=== PATIENT | male | born 1955 | race Caucasian/White ===

== ENCOUNTER 2019-01-03 09:51 | Observation (INO) | payer SELFPAY ==
--- NOTE | 2019-01-03 10:16 | ER Document Report ---
ED Extremity Problem, Upper - General Chief Complaint: Shoulder Injury Stated Complaint: ARM INJURY Time Seen by Provider: 01/03/19 10:14 Primary Care Provider: MELVINA TOLEDO MD [Primary Care Provider] - Follow up as needed Mode of Arrival: Ambulatory Information source: Patient TRAVEL OUTSIDE OF THE [place] IN LAST 30 DAYS: No - HPI Notes: Patient complains of right shoulder pain. He states this started 2 days ago when he fell. He states it is worse with any movement better with rest. It does radiate down his right arm. It is moderate to severe. He states this is the first chance he has had to get to the doctor. He states is a constant throbbing pain. He denies any other injuries in the fall. He states that the reason he fell is because he got dizzy when he stood up. He states he does get dizzy upon standing since he started taking blood pressure medicine. - Related Data Allergies/Adverse Reactions: naproxen [Naproxen] Allergy (Verified 01/03/19 09:52) Past Medical History - General Information source: Patient - Social History Smoking Status: Current Every Day Smoker Frequency of alcohol use: None Drug Abuse: None Family History: Reviewed & Not Pertinent - Past Medical History Cardiac Medical History: Reports: Hx Hypertension GI Medical History: Reports: Hx Ulcer - Associated with some lower GI bleeding - Immunizations Hx Diphtheria, Pertussis, Tetanus Vaccination: No Review of Systems - Review of Systems Constitutional: denies: Chills, Fever Cardiovascular: denies: Chest pain, Dyspnea Respiratory: denies: Cough, Short of breath -: Yes All other systems reviewed and negative Physical Exam - Vital signs Vitals: Temp Pulse Resp BP Pulse Ox 98.2 F 86 22 H 183/90 H 96 01/03/19 10:01 01/03/19 10:01 01/03/19 10:01 01/03/19 10:01 01/03/19 10:01 Interpretation: Hypertensive - General General appearance: Appears well, Alert - HEENT Head: Normocephalic, Atraumatic Eyes: Normal Pupils: PERRL - Respiratory Respiratory status: No respiratory distress Chest status: Nontender Breath sounds: Normal Chest palpation: Normal - Cardiovascular Rhythm: Regular Heart sounds: Normal auscultation Murmur: No - Abdominal Inspection: Normal Distension: No distension Bowel sounds: Normal Tenderness: Nontender Organomegaly: No organomegaly - Back Back: Normal, Nontender - Extremities General upper extremity: Tender - Right shoulder is diffusely tender to palpation. It does not appear grossly deformed however. He is got a 2+ radial pulse on the right. He does have limited range of motion of the right shoulder secondary to pain., Normal color, Normal temperature General lower extremity: Normal inspection, Nontender, Normal color, Normal ROM, Normal temperature, Normal weight bearing. No: Pavel's sign - Neurological Neuro grossly intact: Yes Cognition: Normal Orientation: AAOx4 Maciel Coma Scale Eye Opening: Spontaneous Maciel Coma Scale Verbal: Oriented [place] Coma Scale Motor: Obeys Commands [place] Coma Scale Total: 15 Speech: Normal Motor strength normal: LUE, RUE, LLE, RLE Sensory: Normal - Psychological Associated symptoms: Normal affect, Normal mood - Skin Skin Temperature: Warm Skin Moisture: Dry Skin Color: Normal Course - Re-evaluation Re-evalutation: 01/03/19 13:05 Patient reevaluated. Patient is resting comfortably in the bed although does have pain with movement of the right shoulder. I have discussed the case with the orthopedic surgeon who will take the patient to the operating room when there is availability. - Vital Signs Vital signs: Temp Pulse Resp BP Pulse Ox 98.2 F 86 22 H 183/90 H 96 01/03/19 10:01 01/03/19 10:01 01/03/19 10:01 01/03/19 10:01 01/03/19 10:01 - Diagnostic Test Radiology reviewed: Image reviewed, Reports reviewed Radiology results interpreted by me: 01/03/19 13:[address] X-[address] CT are consistent with anterior dislocation of the right shoulder. There is a Hill-Sachs deformity. Discharge - Discharge Clinical Impression: Recurrent dislocation, right shoulder Condition: Stable Disposition: SAME DAY SURGERY Admitting Provider: noman
[2019-01-03] MEDS ORDERED: MORPHINE SULFATE 10 MG/ML INJ IV ONE ×2 (10:35→13:21)
[2019-01-03] MEDS ORDERED: ONDANSETRON HCL INJ/PF 4 MG/2 ML SDV IV ONE (10:35)
[2019-01-03] MEDS ORDERED: LIDOCAINE 1.5%/EPINEPHRINE INJ-PF 30 ML SDV INJ ONE (10:35)
--- NOTE | 2019-01-03 10:47 | RADIOLOGY REPORT (SQ) ---
EXAM DESCRIPTION: SHOULDER RIGHT 2 OR MORE VIEWS COMPLETED DATE/TIME: 01/03/2019 10:33 am REASON FOR STUDY: fall/pain COMPARISON: 12/02/2014 NUMBER OF VIEWS: Two views. TECHNIQUE: AP and Y-view images acquired of the right shoulder. LIMITATIONS: None. FINDINGS: MINERALIZATION: Decreased. BONES: There is anterior shoulder dislocation with associated Hill-Sachs deformity. Additional degen erative changes at the acromioclavicular injected glenohumeral joint with osteophytosis and prominent inferior projecting acromial osteophytes. JOINTS: Anterior/inferior shoulder dislocation. VISUALIZED LUNGS AND RIBS: No pneumothorax. No rib fracture. SOFT TISSUES: No radiopaque foreign body. OTHER: No other significant finding. IMPRESSION: 1. Anterior/ inferior shoulder dislocation with associated Hill-Sachs deformity. TECHNICAL DOCUMENTATION: JOB ID: [id number] [employer]- All Rights Reserved Reading location - IP/workstation name: [email or web address]
[2019-01-03] MEDS ORDERED: KETOROLAC TROMETHAMINE 60 MG/2 ML SDV IM ONE (10:58)
[2019-01-03] MEDS ORDERED: MORPHINE SULFATE 10 MG/ML INJ IM ONE (10:59)
[2019-01-03] MEDS ORDERED: KETOROLAC TROMETHAMINE 60 MG/2 ML SDV ONE (11:00)
[2019-01-03] MEDS ORDERED: ONDANSETRON 4 MG TAB.RAPDIS ONE (11:00)
[2019-01-03] MEDS ORDERED: ONDANSETRON 4 MG TAB.RAPDIS PO ONE (11:05)
--- NOTE | 2019-01-03 12:16 | RADIOLOGY REPORT (SQ) ---
EXAM DESCRIPTION: CT RT UPPER EXTREMITY WITHOUT COMPLETED DATE/TIME: 01/03/2019 11:50 am REASON FOR STUDY: shoulder dislocated/pain COMPARISON: Same day radiograph TECHNIQUE: Axial imaging performed through the rightshoulder with reformatted oblique coronal and ob lique sagittal imaging windowed for bone and soft tissues. All CT scanners at this facility use dose modulation, iterative reconstruction, and/or weight based d osing when appropriate to reduce radiation dose to as low as reasonably achievable (ALARA). [facility]: Dose Right [facility]: CareDose [facility]: Dose Right [facility]: Teradose 4D [facility]: HotelQuickly RADIATION DOSE: CT Rad equipment meets quality standard of care and radiation dose reduction techniq ues were employed. CTDIvol: 25.9 mGy. DLP: 662 mGy-cm. mGy. LIMITATIONS: None. FINDINGS: SOFT TISSUES: Enlarged shoulder joint effusion. BONY ARCHITECTURE: Again seen is the anterior shoulder dislocation with cortical irregularity of the superolateral humeral head compatible with a Hill-Sachs deformity. No definite bony Bankart lesion. GLENOHUMERAL JOINT: Anterior dislocation as above with large joint effusion. There is degenerative c hanges at the glenohumeral joint with osteophytosis and mild subchondral cystic change ACROMION AND AC JOINT: Acromioclavicular osteoarthropathy with inferior projecting acromial osteophyt es. ROTATOR CUFF: Fatty atrophy of the supra and infraspinatus. Evaluation for attachment tear limited o n this CT. OTHER: No other significant finding. IMPRESSION: 1. Anterior shoulder dislocation with associated Hill-Sachs deformity. No definite bon y Bankart lesion. 2. Large shoulder joint effusion. 3. Glenohumeral and acromioclavicular osteoarthropathy. TECHNICAL DOCUMENTATION: JOB ID: [id number] Quality ID # [id number]: Final reports with documentation of one or more dose reduction techniques (e.g., Au tomated exposure control, adjustment of the mA and/or kV according to patient size, use of iterative reconstruction technique) 2010 [employer]- All Rights Reserved Reading location - IP/workstation name: [email or web address]
[2019-01-03] MEDS ORDERED: MORPHINE SULFATE 10 MG/ML INJ ONE (13:28)
[2019-01-03] MEDS ORDERED: IBUPROFEN 400 MG TABLET PO ONE (15:31)
[2019-01-03] MEDS ORDERED: DIPHENHYDRAMINE HCL 50 MG/ML VIAL IV PRN (15:58)
[2019-01-03] MEDS ORDERED: PROMETHAZINE HCL INJ 25 MG/1 ML VIAL IV PRN ×2 (15:58)
[2019-01-03] MEDS ORDERED: MORPHINE SULFATE 10 MG/ML INJ IV PRN (15:58)
[2019-01-03] MEDS ORDERED: MEPERIDINE HCL/PF INJ 25 MG/1 ML DISP.SYRIN IV PRN (15:58)
[2019-01-03] MEDS ORDERED: OXYCODONE-ACETAMINOPHEN 5-325 MG TABLET PO PRN ×2 (15:58)
[2019-01-03] MEDS ORDERED: FENTANYL CITRATE INJ/PF 100 MCG/2 ML AMPUL IV PRN ×3 (15:58)
[2019-01-03] MEDS ORDERED: MIDAZOLAM 2 MG/2 ML INJ ONE (16:00)
[2019-01-03] MEDS ORDERED: FENTANYL CITRATE INJ/PF 100 MCG/2 ML AMPUL ONE (16:00)
[2019-01-03] MEDS ORDERED: PROPOFOL INJ 200 MG/20 ML VIAL IV ONE (16:01)
--- NOTE | 2019-01-03 16:02 | PDOC H&P ---
History of Present Illness Admission Date/PCP: 01/03/19 15:46 MELVINA TOLEDO MD Patient complains of: Right anterior shoulder dislocation History of Present Illness: RUBEN MAYES is a 63 year old male who presented to the emergency department today complaining of pain in his right shoulder. He reports sustaining a fall 2 days ago and has experienced pain and the inability to move his shoulder since this fall. The patient has a history of alcohol abuse. The patient states that he was too busy to come to the emergency room until today. Duration in the emergency department demonstrated an anterior inferior dislocation of the right shoulder. The emergency department physician attempted a closed reduction but was unsuccessful. Past Medical History Cardiac Medical History: Reports: Hypertension Pulmonary Medical History: Reports: Chronic Obstructive Pulmonary Disease (COPD) - She is a current everyday smoker. GI Medical History: Reports: Gastroesophageal Reflux Disease Musculoskeltal Medical History: Reports: Other - Recurrent shoulder dislocations. Musculoskeletal History Note: The patient has experienced at least 3 dislocations of the right shoulder. The patient reports the last dislocation occurred 8 months ago. The patient reports that he underwent a closed reduction at [facility]. The patient states that he has never followed up with an orthopedic surgeon following any of these dislocations. Social History Smoking Status: Current Every Day Smoker Frequency of Alcohol Use: Heavy - The patient has a history of alcohol abuse. Family History Family History: Reviewed & Not Pertinent Parental Family History Reviewed: Yes Children Family History Reviewed: Yes Sibling(s) Family History Reviewed.: Yes Medication/Allergy Home Medications: Furosemide [Lasix 40 mg Tablet] 40 mg PO QAM 01/03/19 Lisinopril [Prinivil 10 mg Tablet] 10 mg PO DAILY 01/03/19 Pantoprazole Sodium 40 mg PO DAILY 01/03/19 Potassium Chloride 2 tab PO DAILY 01/03/19 Allergies/Adverse Reactions: naproxen [Naproxen] Allergy (Verified 01/03/19 09:52) Physical Exam Vital Signs: Temp Pulse Resp BP Pulse Ox 98.5 F 76 16 146/78 H 95 01/03/19 15:19 01/03/19 15:19 01/03/19 15:19 01/03/19 15:19 01/03/19 15:19 Intake & Output 01/02/19 01/03/19 01/04/19 06:59 06:59 06:59 Weight 110.9 kg Results Impressions: Shoulder X-Ray 01/03/19 10:14 IMPRESSION: 1. Anterior/ inferior shoulder dislocation with associated Hill- Sachs deformity. Upper Extremity CT 01/03/19 11:34 IMPRESSION: 1. Anterior shoulder dislocation with associated Hill-Sachs deformity. No definite bony Bankart lesion. 2. Large shoulder joint effusion. 3. Glenohumeral and acromioclavicular osteoarthropathy. Assessment & Plan - Time Time Spent: 30 to 50 Minutes Medications reviewed and adjusted accordingly: Yes Anticipated discharge: Home Within: within 24 hours - Plan Summary Plan Summary: The patient presented with a 2-day history of anterior inferior dislocation of the right shoulder. He failed a manipulative reduction performed in the emergency room by the emergency room physician. The emergency room physician is not comfortable providing conscious sedation in the emergency department due to his medical morbidity. I have recommended manipulative reduction in the operating room under general anesthesia. We have discussed that if closed reduction is unsuccessful, he may require an open reduction. Risks, benefits, and alternatives were discussed. An opportunity for questions was provided. All questions were answered to his satisfaction. In particular we discussed the risk of with anesthesia. We discussed the risk of prolonged intubation. We discussed the risk of fracture as well as nerve and vascular injury. We discussed that his radiographs demonstrated a Hill-Sachs lesion. We discussed that as this lesion gets larger due to recurrent dislocations, he may develop a persistently unstable shoulder. The patient expressed understanding and wishes to proceed.
--- NOTE | 2019-01-03 17:03 | Operative Report ---
Operative Report DATE OF SURGERY: 01/03/19 PREOPERATIVE DIAGNOSIS: Right shoulder recurrent anterior dislocation POSTOPERATIVE DIAGNOSIS: Same OPERATION: Right shoulder manipulative reduction under general anesthesia SURGEON: ALYSSA SUÁREZ ANESTHESIA: GA COMPLICATIONS: None ESTIMATED BLOOD LOSS: None PROCEDURE: Indications for procedure: The patient is a 63-year-old man with a recurrent anterior shoulder dislocation. The shoulder has been dislocated for at least 2 days per patient history. The patient failed manipulative reduction in the emergency department without sedation. Description of procedure: The patient was brought to the operating room. Timeout was performed. A general anesthetic was administered. Gentle manipulat benjie reduction of the shoulder was performed under image intensification. Image intensification confirmed reduction of the dislocation. The shoulder was then placed in an immobilizer. The patient tolerated the procedure well without complication and was awakened and brought to recovery room in stable condition.
[2019-01-03] MEDS ORDERED: IBUPROFEN 400 MG TABLET ONE (17:30)
[2019-01-03] MEDS ORDERED: IBUPROFEN 400 MG TABLET PO PRN (17:42)
[2019-01-04] MEDS: ACETAMINOPHEN 325 MG TABLET PO PRN ×2 (03:52→07:55)
--- NOTE | 2019-01-04 08:37 | RADIOLOGY REPORT (SQ) ---
EXAM DESCRIPTION: NO CHG FLUORO; SHOULDER RIGHT 2 OR MORE VIEWS COMPLETED DATE/TIME: 01/03/2019 5:25 pm REASON FOR STUDY: CLOSED REDUCTION SHOULDER OR COMPARISON: 01/03/2019 FLUOROSCOPY TIME: 0 minutes 2 images saved to PACS. TECHNIQUE: Intra-operative images acquired during surgical procedure to evaluate progress. NUMBER OF IMAGES: 2 LIMITATIONS: None. FINDINGS: Reduction of previously noted dislocation. Glenohumeral osteophytes. Hill-Sachs lesion. IMPRESSION: IMAGE(S) OBTAINED DURING PROCEDURE. COMMENT: Quality ID [id number]: Final reports for procedures using fluoroscopy that document radiation exp osure indices, or exposure time and number of fluorographic images (if radiation exposure indices are not available) Please consult full operative report of the attending physician for description of the procedure. TECHNICAL DOCUMENTATION: JOB ID: [id number] [employer]- All Rights Reserved Reading location - IP/workstation name: [email or web address]
--- NOTE | 2019-01-04 08:37 | RADIOLOGY REPORT (SQ) ---
EXAM DESCRIPTION: NO CHG FLUORO; SHOULDER RIGHT 2 OR MORE VIEWS COMPLETED DATE/TIME: 01/03/2019 5:25 pm REASON FOR STUDY: CLOSED REDUCTION SHOULDER OR COMPARISON: 01/03/2019 FLUOROSCOPY TIME: 0 minutes 2 images saved to PACS. TECHNIQUE: Intra-operative images acquired during surgical procedure to evaluate progress. NUMBER OF IMAGES: 2 LIMITATIONS: None. FINDINGS: Reduction of previously noted dislocation. Glenohumeral osteophytes. Hill-Sachs lesion. IMPRESSION: IMAGE(S) OBTAINED DURING PROCEDURE. COMMENT: Quality ID [id number]: Final reports for procedures using fluoroscopy that document radiation exp osure indices, or exposure time and number of fluorographic images (if radiation exposure indices are not available) Please consult full operative report of the attending physician for description of the procedure. TECHNICAL DOCUMENTATION: JOB ID: [id number] [employer]- All Rights Reserved Reading location - IP/workstation name: [email or web address]
[2019-01-04 12:05] VITALS: BP 165/79
--- NOTE | 2019-01-05 13:40 | Discharge Summary ---
Discharge Summary (SDC) - Discharge Final Diagnosis: Right shoulder recurrent anterior dislocation Date of Surgery: 01/03/19 Condition: Stable Forms: Discharge POC-Adult Referrals: ALYSSA SUÁREZ MD [ACTIVE PROVISIONAL STAFF] - 01/17/19 11:45 am Discharge Diet: Cardiac Respiratory Treatments at Home: Deep Breathing/Coughing Discharge Activity: Activity As Tolerated, Balance Activity w/Rest, No Driving Home Care Assistance: None Needed Adaptive Devices on Discharge: Wheelchair Report the Following to Your Physician Immediately: Shortness of Breath, Nausea, Vomiting, Increase in Pain, Fever over 101 Degrees, IV Site Infection Signs
== END 2019-01-04 12:15 | disposition home or self-care (01) ==
LOC: ER 09:51 → EH 15:46 → 4S 17:54
PROVIDERS: ADMIT Orthopaedic Surgery; ATTEND Orthopaedic Surgery
PROC: 0RSJXZZ Reposition Right Shoulder Joint, External Approach (ICD-10-PCS; principal; 2019-01-03 16:00)
DX: M24.411 Recurrent dislocation, right shoulder (principal); S42.291A Other displaced fracture of upper end of right humerus, initial encounter for closed fracture; W19.XXXA Unspecified fall, initial encounter; F17.200 Nicotine dependence, unspecified, uncomplicated; F10.11 Alcohol abuse, in remission; K21.9 Gastro-esophageal reflux disease without esophagitis; R42 Dizziness and giddiness; I10 Essential (primary) hypertension; Z79.899 Other long term (current) drug therapy
CPT/HCPCS: 23655; 99284; 96372; 96374; 73030; 73200; 01620; L3650; J2250; J1885; S0119; J3010; J3490 ×2; J2270; J2704; 01730

== ENCOUNTER 2019-02-25 11:06 | Emergency (ER) | payer OTHER ==
[2019-02-25] MEDS ORDERED: PROPOFOL INJ 200 MG/20 ML VIAL IV ONE (11:44)
--- NOTE | 2019-02-25 11:48 | ER Document Report ---
ED General - General Chief Complaint: Shoulder Pain Stated Complaint: RIGHT SHOULDER INJURY Time Seen by Provider: 02/25/19 11:12 Primary Care Provider: MELVINA TOLEDO MD [NO LOCAL MD] - Follow up as needed Notes: 63-year-old male presents emergency department complaining of right shoulder dislocation. Patient states that he woke up in his right shoulder was out of socket. States that this happened before, has a history of a right sided rotator cuff tear in the back. States that his fingers are tingling but not numb. States that he has no difficulty moving his elbow but it hurts to move his shoulder. Patient has had to be taken to the OR once before to have a shoulder reduced, has not had to be surgically reduced however. Denies anesthesia complications, denies blood thinners. Has not had anything to eat yet today. TRAVEL OUTSIDE OF THE [place] IN LAST 30 DAYS: No - Related Data Allergies/Adverse Reactions: naproxen [Naproxen] Allergy (Verified 01/03/19 09:52) Past Medical History - General Information source: Patient - Social History Smoking Status: Current Every Day Smoker Chew tobacco use (# tins/day): No Frequency of alcohol use: None Family History: Reviewed & Not Pertinent Patient has suicidal ideation: No Patient has homicidal ideation: No - Past Medical History Cardiac Medical History: Reports: Hx Hypertension Pulmonary Medical History: Reports: Hx COPD - She is a current everyday smoker. Renal/ Medical History: Denies: Hx Peritoneal Dialysis GI Medical History: Reports: Hx Gastroesophageal Reflux Disease, Hx Ulcer - Associated with some lower GI bleeding Musculoskeletal Medical History: Reports Hx Arthritis - Immunizations Hx Diphtheria, Pertussis, Tetanus Vaccination: No Review of Systems - Review of Systems Constitutional: No symptoms reported Musculoskeletal: See HPI Neurological/Psychological: See HPI -: Yes All other systems reviewed and negative Physical Exam - Vital signs Vitals: Temp Resp BP Pulse Ox 97.6 F 18 142/87 H 97 02/25/19 11:13 02/25/19 11:13 02/25/19 11:13 02/25/19 11:13 Interpretation: Hypertensive - Notes Notes: GENERAL: Alert, interacts well. No acute distress. HEAD: Normocephalic, atraumatic EYES: Pupils equal, round and reactive to light, extraocular movements intact. ENT: Oral mucosa moist, tongue midline. NECK: Full range of motion, supple, trachea midline. LUNGS: Clear to auscultation bilaterally, no wheezes, rales or rhonchi, no respiratory distress. HEART: Regular rate and rhythm, no murmurs, gallops, rubs. ABDOMEN: Soft, nontender, nondistended, bowel sounds present in all 4 quadrants. EXTREMITIES: Moves all 4 extremities spontaneously, able to move right shoulder through range of motion although it is somewhat limited by pain, surprisingly he is able to even elevated over his head, there is an anterior dislocation deformity noted at the glenohumeral joint, no edema, radial and dorsalis pedis pulses 2/4 bilaterally. No cyanosis. Sensation is intact NEUROLOGICAL: Alert and oriented x3, normal speech, biceps and patellar DTRs 2+ bilaterally. PSYCH: Normal mood, normal affect. SKIN: Warm, Dry, normal turgor, no rashes or lesions noted. Course - Re-evaluation Re-evalutation: 02/25/19 11:48 Attempted to reduce without sedation at bedside, unsuccessful though patient tolerated this well. Patient agrees to procedural sedation and reduction with propofol. X-ray shows anterior dislocation. 02/25/19 15:51 Easily reduced with propofol, no complications. Placed in shoulder immobilizer. Discharged home. - Vital Signs Vital signs: Temp Pulse Resp BP Pulse Ox 97.6 F 80 16 148/84 H 99 02/25/19 12:00 02/25/19 13:42 02/25/19 13:42 02/25/19 13:42 02/25/19 13:42 Procedures - Conscious Sedation Conscious sedation Consent obtained: Yes Indication: Right shoulder dislocation Last meal: 8 AM Pt with a mild systemic disease.: P2. - ASA Classification. Airway Evaluation: Obese Mallampati Classification: Class 2 Used during procedure: Suction available, IV access obtained, Pulse ox on pt., campus monitor on pt. Medications administered: Diprivan Reversal agents: None I personally performed/intraservice time: Sedation, Procedure, 30 min or less Complications: No - Joint Reduction/Fracture Care Right shoulder Consent obtained: Yes Conscious sedation: Yes Pre-procedure NV exam: Yes Post-procedure NV exam: Yes Post-reduction x-ray: Joint reduced, No fracture seen Reduction attempts: 1 Complications: No Discharge - Discharge Clinical Impression: Recurrent dislocation, right shoulder Condition: Stable Disposition: HOME, SELF-CARE Additional Instructions: Shoulder Dislocation You've had a shoulder dislocation. Even after the shoulder is put back in place, careful care is needed to prevent further problems. As the shoulder dislocated, injury to the joint itself occurred. This must be allowed to heal. The usual treatment is a shoulder immobilizing sling. If this is your first dislocation, it must be left in place until the doctor allows you to remove it. This is important. Ice pack the shoulder frequently. One of the most important aspects of care for a shoulder dislocation is mobility exercises and strengthening exercises. You'll start these when it's safe to start moving the shoulder joint. Be sure to keep your follow-up appointments. If you develop numbness in the arm or hand, weakness of the hand muscles, arm swelling, or arm discoloration, call the doctor or return immediately. Referrals: MELVINA TOLEDO MD [NO LOCAL MD] - Follow up as needed
--- NOTE | 2019-02-25 11:58 | RADIOLOGY REPORT (SQ) ---
EXAM DESCRIPTION: SHOULDER RIGHT 2 OR MORE VIEWS COMPLETED DATE/TIME: 02/25/2019 11:38 am REASON FOR STUDY: Obvious deformity COMPARISON: None. NUMBER OF VIEWS: Two views. TECHNIQUE: Frontal and lateral images acquired of the right shoulder. LIMITATIONS: None. FINDINGS: MINERALIZATION: Osteopenia. BONES: Anterior glenohumeral dislocation. No obvious fracture. JOINTS: See above. VISUALIZED LUNGS AND RIBS: No pneumothorax. No rib fracture. SOFT TISSUES: No radiopaque foreign body. OTHER: No other significant finding. IMPRESSION: Anterior glenohumeral dislocation. TECHNICAL DOCUMENTATION: JOB ID: [id number] [employer]- All Rights Reserved Reading location - IP/workstation name: [email or web address]
--- NOTE | 2019-02-25 14:55 | RADIOLOGY REPORT (SQ) ---
EXAM DESCRIPTION: SHOULDER RIGHT 2 OR MORE VIEWS COMPLETED DATE/TIME: 02/25/2019 2:35 pm REASON FOR STUDY: post-reduction COMPARISON: Earlier the same day. NUMBER OF VIEWS: Three views. TECHNIQUE: Internal rotation, external rotation, and Y view images acquired of the right shoulder. LIMITATIONS: None. FINDINGS: MINERALIZATION: Osteopenia. BONES: No acute fracture. No worrisome bone lesions. JOINTS: No dislocation. VISUALIZED LUNGS AND RIBS: No pneumothorax. No rib fracture. SOFT TISSUES: No radiopaque foreign body. OTHER: No other significant finding. IMPRESSION: Successful closed reduction. TECHNICAL DOCUMENTATION: JOB ID: [id number] [employer]- All Rights Reserved Reading location - IP/workstation name: [email or web address]
[2019-02-25 16:17] VITALS: BP 164/95
== END 2019-02-25 16:17 | disposition home or self-care (01) ==
LOC: ER 11:06
DX: M24.411 Recurrent dislocation, right shoulder (principal); R20.2 Paresthesia of skin; F17.200 Nicotine dependence, unspecified, uncomplicated; I10 Essential (primary) hypertension; J44.9 Chronic obstructive pulmonary disease, unspecified; Z88.8 Allergy status to other drugs, medicaments and biological substances
CPT/HCPCS: 99283; 99152; 73030; 23650; L3650; J2704

== ENCOUNTER 2019-02-26 21:11 | Emergency (ER) | payer OTHER ==
--- NOTE | 2019-02-26 21:24 | ER Document Report ---
ED General - General Chief Complaint: Shoulder Injury Stated Complaint: SHOULDER INJURY Time Seen by Provider: 02/26/19 21:23 TRAVEL OUTSIDE OF THE [place] IN LAST 30 DAYS: No - HPI Patient complains to provider of: shoulder pain Notes: 63 y/o presenting to ED for evaluation of right shoulder pain he states he was in the ED yesterday and was treated for a shoulder dislocation he states he felt fine this am and had the arm in the a sling however, he then went to take a nap and woke up and the pain was back in the shoulder he has a tingling sensation in his fingers and notes that he usually feels this way when his shoulder is dislocated no falls or known injuries - Related Data Allergies/Adverse Reactions: naproxen [Naproxen] Allergy (Verified 01/03/19 09:52) Past Medical History - Social History Smoking Status: Unknown if Ever Smoked Family History: Reviewed & Not Pertinent Patient has suicidal ideation: No Patient has homicidal ideation: No - Past Medical History Cardiac Medical History: Reports: Hx Hypertension Pulmonary Medical History: Reports: Hx COPD - She is a current everyday smoker. Renal/ Medical History: Denies: Hx Peritoneal Dialysis GI Medical History: Reports: Hx Gastroesophageal Reflux Disease, Hx Ulcer - Associated with some lower GI bleeding Musculoskeletal Medical History: Reports Hx Arthritis - Immunizations Hx Diphtheria, Pertussis, Tetanus Vaccination: No Review of Systems - Review of Systems Constitutional: No symptoms reported EENT: No symptoms reported Cardiovascular: No symptoms reported Respiratory: No symptoms reported Gastrointestinal: No symptoms reported Genitourinary: No symptoms reported Male Genitourinary: No symptoms reported Musculoskeletal: Joint pain. denies: Deformity Skin: No symptoms reported Hematologic/Lymphatic: No symptoms reported Neurological/Psychological: No symptoms reported Physical Exam - Vital signs Vitals: Temp Resp BP Pulse Ox 97.9 F 20 131/68 H 96 02/26/19 21:21 02/26/19 21:21 02/26/19 21:21 02/26/19 21:21 Interpretation: Normal - General General appearance: Appears well, Alert - HEENT Head: Normocephalic, Atraumatic Eyes: Normal Pupils: PERRL Mucous membranes: Normal Pharynx: Normal Neck: Normal. No: Lymphadenopathy - Respiratory Respiratory status: No respiratory distress Chest status: Nontender Breath sounds: Normal Chest palpation: Normal - Cardiovascular Rhythm: Regular Heart sounds: Normal auscultation Murmur: No - Abdominal Inspection: Normal Distension: No distension Bowel sounds: Normal Tenderness: Nontender Organomegaly: No organomegaly - Back Back: Normal, Nontender - Extremities General lower extremity: Normal inspection, Nontender, Normal color, Normal ROM, Normal temperature, Normal weight bearing. No: Pavel's sign Shoulder: Tender, Limited ROM. No: Abrasion, Ecchymosis, Laceration - Neurological Neuro grossly intact: Yes Cognition: Normal Orientation: AAOx4 Maciel Coma Scale Eye Opening: Spontaneous Maciel Coma Scale Verbal: Oriented [place] Coma Scale Motor: Obeys Commands Maciel Coma Scale Total: 15 Speech: Normal Motor strength normal: LUE, RUE, LLE, RLE Sensory: Normal - Psychological Associated symptoms: Normal affect, Normal mood - Skin Skin Temperature: Warm Skin Moisture: Dry Skin Color: Normal Course - Re-evaluation Re-evalutation: 02/26/19 21:33 right shoulder pain reduced yesterday will repeat xr given some limitation in ROM 02/26/19 22:54 dislocated attempted reduction w/o sedation propofol ordered for sedation after failure to reduce w/o medication 02/27/19 00:15 propofol for sedation reduced successfully sling put back on orthopedic follow up recommended - Vital Signs Vital signs: Temp Pulse Resp BP Pulse Ox 97.9 F 87 18 147/102 H 100 02/26/19 21:21 02/27/19 00:08 02/27/19 00:08 02/27/19 00:08 02/27/19 00:08 - Diagnostic Test Radiology reviewed: Image reviewed, Reports reviewed Procedures - Conscious Sedation Conscious sedation Consent obtained: Yes Indication: shoulder dislocation Prior complications: Procedural sedation Medications administered: Diprivan Reversal agents: None I personally performed/intraservice time: Sedation, 30 min or less Complications: No - Joint Reduction/Fracture Care Right Shoulder Consent obtained: Yes Conscious sedation: Yes Pre-procedure NV exam: Yes Manipulation comment: reduced w/ traction/counter traction Post-procedure NV exam: Yes Post-reduction x-ray: Joint reduced Reduction attempts: 1 - with sedation Complications: No Discharge - Discharge Clinical Impression: Elevated blood pressure reading Shoulder dislocation Qualifiers: Encounter type: initial encounter Laterality: right Qualified Code(s): S43.004A - Unspecified dislocation of right shoulder joint, initial encounter Condition: Stable Disposition: HOME, SELF-CARE Instructions: Shoulder Dislocation ([facility]), Sling as Treatment ([facility]) Additional Instructions: call orthopedic for follow up return to the ED with worsening Forms: Elevated Blood Pressure Referrals: BEBA BRADEN DO [ACTIVE STAFF] - Follow up as needed
[2019-02-26] MEDS ORDERED: MORPHINE SULFATE 10 MG/ML INJ IV ONE (22:05)
[2019-02-26] MEDS ORDERED: ONDANSETRON HCL INJ/PF 4 MG/2 ML SDV IV ONE (22:05)
[2019-02-26] MEDS ORDERED: MORPHINE SULFATE 10 MG/ML INJ IM ONE (22:09)
[2019-02-26] MEDS ORDERED: ONDANSETRON 4 MG TAB.RAPDIS PO ONE (22:10)
--- NOTE | 2019-02-26 22:28 | RADIOLOGY REPORT (SQ) ---
EXAM DESCRIPTION: XR SHOULDER 2 OR MORE VIEWS COMPLETED DATE/TME: 02/26/2019 00:00 CLINICAL HISTORY: 63 years, Male, possible dislocation COMPARISON: 02/25/2019 right shoulder NUMBER OF VIEWS: 2 TECHNIQUE: 2 view right shoulder LIMITATIONS: None. FINDINGS: Anterior inferior dislocation of the humerus with Hill-Sachs deformity. Degenerative changes are again noted. No acute fracture. IMPRESSION: Anterior inferior shoulder dislocation copyright 2010 [employer]- All Rights Reserved
[2019-02-26] MEDS ORDERED: PROPOFOL INJ 200 MG/20 ML VIAL IV ONE (22:54)
--- NOTE | 2019-02-27 00:29 | RADIOLOGY REPORT (SQ) ---
EXAM DESCRIPTION: XR SHOULDER 2 OR MORE VIEWS COMPLETED DATE/TME: 02/27/2019 00:00 CLINICAL HISTORY: 63 years, Male, post reduction COMPARISON: 02/26/2019 FINDINGS: 2 views of the right shoulder. Post reduction images demonstrate appropriate anatomic position. No definite acute fracture identified. Osteopenia. Degenerative change of the acromioclavicular and glenohumeral joints. No acute abnormalities of visualized right ribs. IMPRESSION: 1. Right glenohumeral joint narrowing. Anatomic alignment post reduction. copyright 2010 [employer]- All Rights Reserved
[2019-02-27 01:18] VITALS: BP 170/92
== END 2019-02-27 01:30 | disposition home or self-care (01) ==
LOC: ER 21:11
DX: M24.411 Recurrent dislocation, right shoulder (principal); M25.511 Pain in right shoulder; I10 Essential (primary) hypertension; J44.9 Chronic obstructive pulmonary disease, unspecified; Z88.8 Allergy status to other drugs, medicaments and biological substances
CPT/HCPCS: 73030 ×2; 23650; S0119; J2270; J2704; 96372; 99283; 99152

== ENCOUNTER 2019-03-15 22:30 | Emergency (ER) | payer OTHER ==
--- NOTE | 2019-03-15 23:33 | RADIOLOGY REPORT (SQ) ---
EXAM DESCRIPTION: XR SHOULDER 2 OR MORE VIEWS COMPLETED DATE/TME: 03/15/2019 22:43 CLINICAL HISTORY: 63 years, Male, bone tenderness COMPARISON: 02/27/2019 right shoulder NUMBER OF VIEWS: 2 TECHNIQUE: 2 views right shoulder LIMITATIONS: None. FINDINGS: Osteopenia. Anterior inferior shoulder dislocation/humeral dislocation. Advanced degenerative changes of the shoulder joint without evidence for acute fracture. IMPRESSION: Anterior inferior shoulder dislocation. Osteopenia. copyright 2010 [employer]- All Rights Reserved
[2019-03-16] MEDS ORDERED: DIAZEPAM INJ 10 MG/2 ML DISP.SYRIN IV ONE (02:12)
[2019-03-16] MEDS ORDERED: ETOMIDATE INJ/PF 20 MG/10 ML SDV IV ONE (02:12)
--- NOTE | 2019-03-16 02:22 | ER Document Report ---
ED General - General Chief Complaint: Shoulder Injury Stated Complaint: POSSIBLE RIGHT SHOULDER DISLOCATION Time Seen by Provider: 03/16/19 01:42 Primary Care Provider: SUNDEEP GARCIA MD [ACTIVE STAFF] - Follow up in 3-5 days TRAVEL OUTSIDE OF THE [place] IN LAST 30 DAYS: No - HPI Notes: This is a 63-year-old male who presents complaining of sudden onset right shoulder pain that started approximately 1 hour to arrival in the ED at 2213 hrs. on 03/15/2019. Patient states that he has a history of right shoulder dislocations in the past and he was awoken from sleep by a sudden sharp pain in his right shoulder. Patient states that he is dislocated his right shoulder at least 3 times in the past. EMS gave the patient a gram of Tylenol for pain. Documented vital signs initially blood pressure 143/84, pulse ox 97% on room air, heart rate 81, respirations 20 blood sugar 91. Patient denies numbness, paresthesias, color change in his right upper extremity. Differential diagnosis: Shoulder dislocation, surgical neck fracture of the humerus, occult brachial plexus injury - Related Data Allergies/Adverse Reactions: naproxen [Naproxen] Allergy (Verified 01/03/19 09:52) Past Medical History - Social History Smoking Status: Unknown if Ever Smoked Family History: Reviewed & Not Pertinent Patient has suicidal ideation: No Patient has homicidal ideation: No - Past Medical History Cardiac Medical History: Reports: Hx Hypertension Pulmonary Medical History: Reports: Hx COPD - She is a current everyday smoker. Renal/ Medical History: Denies: Hx Peritoneal Dialysis GI Medical History: Reports: Hx Gastroesophageal Reflux Disease, Hx Ulcer - Associated with some lower GI bleeding Musculoskeletal Medical History: Reports Hx Arthritis - Immunizations Hx Diphtheria, Pertussis, Tetanus Vaccination: No Physical Exam - Vital signs Vitals: Resp Pulse Ox 16 95 03/15/19 22:32 03/15/19 22:32 - Notes Notes: PHYSICAL EXAMINATION: GENERAL: Well-appearing, well-nourished and in no acute distress. HEAD: Atraumatic, normocephalic. EYES: Pupils equal round and reactive to light, extraocular movements intact, sclera anicteric, conjunctiva are normal. ENT: nares patent, oropharynx clear without exudates. Moist mucous membranes. NECK: Normal range of motion, supple without lymphadenopathy LUNGS: Breath sounds clear to auscultation bilaterally and equal. No wheezes rales or rhonchi. HEART: Regular rate and rhythm without murmurs ABDOMEN: Soft, nontender, normoactive bowel sounds. No guarding, no rebound. No masses appreciated. EXTREMITIES: Extremity exam is significant for anterior fullness in the right shoulder region. Patient's right upper extremity is flexed at the elbow and the extremity is adducted. Patient states sensation is intact in all 5 digits of his right hand. Cap refill is less than 2 seconds in all 5 digits of the patient's right hand. Patient is able to oppose each of his fingers against the thumb of his right hand. NEUROLOGICAL: No focal neurological deficits. Moves all extremities spontaneously and on command. PSYCH: Normal mood, normal affect. SKIN: Warm, Dry, normal turgor, no rashes or lesions noted. Course - Re-evaluation Re-evalutation: 03/16/19 02:50 Patient is currently in no acute distress postreduction film has been obtained. Awaiting final read from radiologist on postreduction film. 03/16/19 05:53 Patient has been resting. Nursing reports that the patient got up and ambulated to the bathroom without difficulty. Post reduction film shows satisfactory reduction of the dislocation per radiologist read. - Vital Signs Vital signs: Temp Pulse Resp BP Pulse Ox 97.9 F 85 18 168/80 H 100 03/15/19 22:33 03/16/19 02:40 03/16/19 02:40 03/16/19 02:40 03/16/19 02:40 - Diagnostic Test Radiology reviewed: Reports reviewed Procedures - Joint Reduction/Fracture Care Right Shoulder Time completed: 02:40 Consent obtained: Yes - Risk and benefits of conscious sedation and shoulder reduction discussed Conscious sedation: Yes - Risk and benefits discussed with patient Pre-procedure NV exam: Yes - See exam section Manipulation comment: Traction countertraction Post-procedure NV exam: Yes - Type refill less than 2 seconds in all digits sensation intact in all digit Post-reduction x-ray: Joint reduced Reduction attempts: 2 Complications: No Notes: 03/16/19 02:49 Patient tolerated procedure well, tolerated conscious sedation well is easily arousable postprocedure and responds to questions appropriately at this time. Patient's heart rate is currently 84 O2 sats are 100% on 2 L by nasal cannula and blood pressure is 168/80. Discharge - Discharge Clinical Impression: Anterior dislocation of right shoulder Qualifiers: Encounter type: initial encounter Qualified Code(s): S43.014A - Anterior dislocation of right humerus, initial encounter Condition: Good Disposition: HOME, SELF-CARE Instructions: Oral Narcotic Medication ([facility]), Shoulder Dislocation ([facility]), Sling as Treatment ([facility]) Additional Instructions: HOME CARE INSTRUCTIONS & INFORMATION: Thank you for choosing us for your medical needs. We hope you're satisfied with the care you received. After you leave, you must properly care for your problem and, at the same time, observe its progress. Any condition can change. Some illnesses can change rapidly over hours or days. If your condition worsens, return to the Emergency Department or see your physician promptly. ABOUT YOUR X-RAYS AND EKG'S: If you had an EKG or X-rays taken, they have been read by the Emergency Physician. The X-rays and EKG's will also be read by a Radiologist or Repossession Agent within 24 hours. If discrepancies are noted, you will be notified by telephone. Please be certain the ED has a correct telephone number & address where you can be reached. Also, realize that some fractures or abnormalities do not show up on initial X-rays. If your symptoms continue, see your physician. ABOUT YOUR LABORATORY TEST: If you had laboratory tests, the results have been reviewed by the Emergency Physician. Some test results (for example cultures) may not be available for several days. You will be contacted if any test result shows you need additional treatment. Please be certain the ED has a correct telephone number and address where you can be reached. ABOUT YOUR MEDICATIONS: You will receive instructions on how to take your medicine on the prescription label you receive. Additional information may be provided by the Pharmacy. If you have questions afterwards, call the ED for clarification or further instructions. Some prescribed medications may cause drowsiness. Do not perform tasks such as driving a car or operating machinery without consulting your Pharmacist. If you feel you need a refill of pain medication, your condition will need re-evaluation. Please do not call for a refill of any medication. ABOUT YOUR SIGNATURE: Signature of this document acknowledges to followin. Understanding that you received emergency treatment and that you may be released before al medical problems are known or treated. Please be certain the ED has a correct phone number & address where you can be reached. 2. Acknowledgement that you will arrange for follow-up care as recommended. 3. Authorization for the Emergency Physician to provide information to your follow-up Physician in order to maximize your care. AT ANY TIME, IF YOUR SYMPTOMS CHANGE SIGNIFICANTLY OR WORSEN OR YOU DEVELOP NEW SYMPTOMS, RETURN TO THE EMERGENCY DEPARTMENT IMMEDIATELY FOR RE-EVALUATION. OUR GOAL IS TO PROVIDE EXCELLENT MEDICAL CARE! WE HOPE THAT WE HAVE MET YOUR EXPECTATIONS DURING YOUR EMERGENCY DEPARTMENT VISIT AND THAT YOU FEEL YOU HAVE RECEIVED EXCELLENT CARE! Return to the Emergency Department without delay if any worse. Prescriptions: Oxycodone HCl/Acetaminophen [Percocet 5-325 mg Tablet] 1 - 2 tab PO Q4H PRN #15 tablet PRN Reason: Severe Pain Referrals: SUNDEEP GARCIA MD [ACTIVE STAFF] - Follow up in 3-5 days
--- NOTE | 2019-03-16 03:02 | RADIOLOGY REPORT (SQ) ---
EXAM: X-ray shoulder one view CLINICAL DATA: Post reduction TECHNICAL DATA: One x-ray view of the right shoulder was performed on 03/16/2019 at 2:46 AM COMPARISONS: 03/15/2019 at 10:57 PM FINDINGS: Since the prior study there has been interval closed reduction of the right shoulder dislocation. No definite acute fracture is identified. There is narrowing of the glenohumeral joint and acromioclavicular joint. There is mild hypertrophic spurring of the AC joint. There is mild stable irregularity of the superolateral right humeral head likely reflecting a Hill-Sachs deformity. Bone mineralization is slightly diminished. No focal soft tissue abnormalities are identified. IMPRESSION: Satisfactory closed reduction of the right shoulder dislocation without definite acute fracture.
[2019-03-16 06:08] VITALS: BP 127/71
== END 2019-03-16 06:37 | disposition home or self-care (01) ==
LOC: ER 22:30
PROC: 0RSJXZZ Reposition Right Shoulder Joint, External Approach (ICD-10-PCS; principal; 2019-03-15)
DX: M24.411 Recurrent dislocation, right shoulder (principal); M25.511 Pain in right shoulder; I10 Essential (primary) hypertension; J44.9 Chronic obstructive pulmonary disease, unspecified; F17.200 Nicotine dependence, unspecified, uncomplicated
CPT/HCPCS: 99283; 99152; 96374; 73020; 73030; 23650; J3360; J3490

== ENCOUNTER 2019-05-07 10:54 | Emergency (ER) | payer OTHER ==
--- NOTE | 2019-05-07 12:12 | ER Document Report ---
Entered by KARLEY SPAIN SCRIBE 05/07/19 1114 Acting as scribe for:GURWINDER RAVI MD ED Shoulder Pain/Injury - General Stated Complaint: RIGHT SHOULDER PAIN Time Seen by Provider: 05/07/19 11:07 Mode of Arrival: Medic Information source: Patient, [facility] Records Notes: This 63 year old male patient brought in by EMS presents to the ED today with complaints of a right shoulder dislocation that occurred prior to arrival. Patient states that he "moved wrong and it popped out." Patient reports that he has a history of right shoulder dislocations due to a rotator cuff injury. Patient was seen here on 03/15/19 for similar symptoms. Positive deformity noted to right shoulder. TRAVEL OUTSIDE OF THE [place] IN LAST 30 DAYS: No - Related Data Allergies/Adverse Reactions: No Known Allergies Allergy (Unverified 05/07/19 11:19) Past Medical History - General Information source: Patient, [facility] Records - Social History Smoking Status: Current Every Day Smoker Cigarette use (# per day): Yes - 1 ppd Frequency of alcohol use: Occasional Family History: Reviewed & Not Pertinent Patient has suicidal ideation: No Patient has homicidal ideation: No - Past Medical History Cardiac Medical History: Reports: Hx Hypertension Pulmonary Medical History: Reports: Hx COPD GI Medical History: Reports: Hx Gastroesophageal Reflux Disease, Hx Ulcer - Associated with some lower GI bleeding Musculoskeletal Medical History: Reports Hx Arthritis Past Surgical History: Reports: None - Immunizations Hx Diphtheria, Pertussis, Tetanus Vaccination: No Review of Systems - Review of Systems Constitutional: No symptoms reported EENT: No symptoms reported Cardiovascular: No symptoms reported Respiratory: No symptoms reported Gastrointestinal: No symptoms reported Genitourinary: No symptoms reported Male Genitourinary: No symptoms reported Musculoskeletal: See HPI, Other - right shoulder dislocation Skin: No symptoms reported Hematologic/Lymphatic: No symptoms reported Neurological/Psychological: No symptoms reported -: Yes All other systems reviewed and negative Physical Exam - Vital signs Vitals: Temp Pulse Resp BP Pulse Ox 97.4 F 88 18 125/52 L 96 05/07/19 11:05 05/07/19 11:05 05/07/19 11:05 05/07/19 11:05 05/07/19 11:05 Interpretation: Normal - General General appearance: Alert In distress: None - HEENT Head: Normocephalic, Atraumatic Eyes: Normal Pupils: PERRL - Respiratory Respiratory status: No respiratory distress Chest status: Nontender Breath sounds: Rhonchi, Wheezing Chest palpation: Normal - Cardiovascular Rhythm: Regular Heart sounds: Normal auscultation Murmur: No - Abdominal Inspection: Obese Distension: No distension Bowel sounds: Normal Tenderness: Nontender Organomegaly: No organomegaly - Back Back: Normal, Nontender - Extremities General upper extremity: Edema, Other - erythematous right upper extremity General lower extremity: Normal inspection. No: Edema Forearm: Other - skin sores visible upon exam of right forearm - Neurological Neuro grossly intact: Yes - Psychological Associated symptoms: Normal affect, Normal mood - Skin Skin Temperature: Warm Skin Moisture: Dry Skin Color: Normal Course - Re-evaluation Re-evalutation: 05/07/19 13:16 The shoulder immobilizer was placed by myself and the PCT following the shoulder reduction. It was placed on the right arm, it holds the elbow in flexion and against the chest wall. - Vital Signs Vital signs: Temp Pulse Resp BP Pulse Ox 97.4 F 94 19 155/81 H 100 05/07/19 11:05 05/07/19 12:59 05/07/19 13:11 05/07/19 13:11 05/07/19 13:11 - Diagnostic Test Radiology reviewed: Image reviewed - Right shoulder x-ray shows anterior dislocation. Postreduction view shows the humeral head has been reduced into the glenoid fossa. Procedures - Conscious Sedation Conscious sedation Consent obtained: Yes Pt with a mild systemic disease.: P2. - ASA Classification. Airway Evaluation: Obese Mallampati Classification: Class 2 Used during procedure: Suction available, IV access obtained, Pulse ox on pt., station baggage porter on pt. Medications administered: Etomidate Reversal agents: None I personally performed/intraservice time: Sedation, Procedure, 30 min or less Complications: No Notes: Patient required supplemental oxygen, nasal cannula was placed in his mouth due to the patient's snoring. Oxygen saturation dropped down to 90% when he was most somnolent, he is head was repositioned, nasal cannula oxygen was turned up to 5 L, and his saturations came back up to 100%. He woke up shortly after that and was doing fine. - Joint Reduction/Fracture Care Right Shoulder Time completed: 13:00 Consent obtained: Yes Conscious sedation: Yes Pre-procedure NV exam: Yes Post-procedure NV exam: Yes Post-reduction x-ray: Joint reduced Reduction attempts: 1 Complications: No Notes: 05/07/19 13:14 Patient's shoulder was reduced by having the patient in the upright sitting position, hyper abducting the shoulder, and pulling upwards. It was felt to reduce, it was brought back down into neutral position and palpating the shoulder felt as if it was reduced. X-ray did confirm the reduction. Discharge - Discharge Clinical Impression: Recurrent dislocation, right shoulder Condition: Stable Disposition: HOME, SELF-CARE Additional Instructions: Shoulder Dislocation You've had a shoulder dislocation. Even after the shoulder is put back in place, careful care is needed to prevent further problems. As the shoulder dislocated, injury to the joint itself occurred. This must be allowed to heal. The usual treatment is a shoulder immobilizing sling. If this is your first dislocation, it must be left in place until the doctor allows you to remove it. This is important. Ice pack the shoulder frequently. One of the most important aspects of care for a shoulder dislocation is mobility exercises and strengthening exercises. You'll start these when it's safe to start moving the shoulder joint. Be sure to keep your follow-up appointments. If you develop numbness in the arm or hand, weakness of the hand muscles, arm swelling, or arm discoloration, call the doctor or return immediately. Use the sling for a few days to limit motion at the shoulder. Use ice packs on your shoulder today to help with pain and swelling. Make an appointment with an orthopedic surgeon to be evaluated for surgical repair. RETURN TO THE EMERGENCY ROOM IF ANY NEW OR WORSENING SYMPTOMS. Prescriptions: Oxycodone HCl/Acetaminophen [Percocet 5-325 mg Tablet] 1 tab PO ASDIR PRN #10 tablet PRN Reason: Scribe Attestation: 05/07/19 12:16 I personally performed the services described in the documentation, reviewed and edited the documentation which was dictated to the scribe in my presence, and it accurately records my words and actions. I personally performed the services described in the documentation, reviewed and edited the documentation which was dictated to the scribe in my presence, and it accurately records my words and actions.
[2019-05-07] MEDS ORDERED: DIAZEPAM INJ 10 MG/2 ML DISP.SYRIN IV ONE (12:15)
[2019-05-07] MEDS ORDERED: ETOMIDATE INJ/PF 20 MG/10 ML SDV IV ONE (12:16)
--- NOTE | 2019-05-07 12:18 | RADIOLOGY REPORT (SQ) ---
EXAM DESCRIPTION: SHOULDER RIGHT 2 OR MORE VIEWS COMPLETED DATE/TIME: 05/07/2019 11:36 am REASON FOR STUDY: Chronically dislocating right shoulder COMPARISON: None. NUMBER OF VIEWS: Two views. TECHNIQUE: Frontal and lateral images acquired of the right shoulder. LIMITATIONS: None. FINDINGS: MINERALIZATION: Normal. BONES: No acute fracture. No worrisome bone lesions. JOINTS: Anterior dislocation. VISUALIZED LUNGS AND RIBS: No pneumothorax. No rib fracture. SOFT TISSUES: No radiopaque foreign body. OTHER: No other significant finding. IMPRESSION: Anterior dislocation. No fracture. TECHNICAL DOCUMENTATION: JOB ID: [id number] [employer]- All Rights Reserved Reading location - IP/workstation name: [email or web address]
[2019-05-07 13:33] VITALS: BP 139/73
--- NOTE | 2019-05-07 14:00 | RADIOLOGY REPORT (SQ) ---
EXAM DESCRIPTION: SHOULDER RIGHT 1 VIEW COMPLETED DATE/TIME: 05/07/2019 1:15 pm REASON FOR STUDY: Postreduction COMPARISON: None. NUMBER OF VIEWS: One view. TECHNIQUE: AP image acquired of the right shoulder. LIMITATIONS: None. FINDINGS: MINERALIZATION: Normal. BONES: No acute fracture. No worrisome bone lesions. JOINTS: Dislocation is been reduced. No fracture is appreciated. Evaluation is limited because ther e is no externally rotated view. VISUALIZED LUNGS AND RIBS: No pneumothorax. No rib fracture. SOFT TISSUES: No radiopaque foreign body. OTHER: No other significant finding. IMPRESSION: Successful reduction of the dislocation. TECHNICAL DOCUMENTATION: JOB ID: [id number] [employer] All Rights Reserved Reading location - IP/workstation name: [email or web address]
== END 2019-05-07 14:05 | disposition home or self-care (01) ==
LOC: ER 10:54
PROC: 0RSJXZZ Reposition Right Shoulder Joint, External Approach (ICD-10-PCS; principal; 2019-05-07)
DX: M24.411 Recurrent dislocation, right shoulder (principal); M25.511 Pain in right shoulder; F17.210 Nicotine dependence, cigarettes, uncomplicated; I10 Essential (primary) hypertension; J44.9 Chronic obstructive pulmonary disease, unspecified
CPT/HCPCS: 99283; 99152; 73020; 73030; 23650; L3650; J3490

== ENCOUNTER 2019-05-28 10:47 | Emergency (ER) | payer MEDICARE, OTHER ==
--- NOTE | 2019-05-28 13:17 | RADIOLOGY REPORT (SQ) ---
EXAM DESCRIPTION: SHOULDER RIGHT 2 OR MORE VIEWS COMPLETED DATE/TIME: 05/28/2019 1:08 pm REASON FOR STUDY: pain COMPARISON: 05/07/2019 NUMBER OF VIEWS: Two views. TECHNIQUE: AP and Y-view images acquired of the right shoulder. LIMITATIONS: None. FINDINGS: MINERALIZATION: Normal. BONES: No definite fracture. JOINTS: Humeral head is dislocated anteriorly and inferiorly. VISUALIZED LUNGS AND RIBS: No pneumothorax. No rib fracture. SOFT TISSUES: No radiopaque foreign body. OTHER: No other significant finding. IMPRESSION: Dislocated right shoulder similar to prior exam. TECHNICAL DOCUMENTATION: JOB ID: [id number] [employer]- All Rights Reserved Reading location - IP/workstation name: [email or web address]
[2019-05-28] MEDS ORDERED: PROPOFOL INJ 200 MG/20 ML VIAL IV ONE ×2 (13:47→14:45)
[2019-05-28] MEDS ORDERED: FENTANYL CITRATE INJ/PF 100 MCG/2 ML AMPUL IV ONE (13:47)
--- NOTE | 2019-05-28 13:54 | ER Document Report ---
ED General - General Chief Complaint: Shoulder Pain Stated Complaint: SHOULDER PAIN Time Seen by Provider: 05/28/19 13:41 Primary Care Provider: GEOFFREY CASIANO FNP-C [Primary Care Provider] - Follow up as needed TRAVEL OUTSIDE OF THE [place] IN LAST 30 DAYS: No - HPI Notes: Patient is a 63-year-old male with a history of hypertension recurrent shoulder dislocation who presents to the emergency department for evaluation of right shoulder pain. He states he woke up this morning, believes his shoulder was dislocated at that time. He presents pain at a 4 out of 5. He has some numbness and tingling in his hand that is progressed over the last hour to 2. He denies any brenda injury to the area. Again this is recurrent. He is not on any blood thinners of any sort. He has been taking his medications as prescribed. - Related Data Allergies/Adverse Reactions: Penicillins Allergy (Verified 05/28/19 10:51) Home Medications: Lisinopril Past Medical History - General Information source: Patient - Social History Smoking Status: Current Every Day Smoker Family History: Reviewed & Not Pertinent Patient has suicidal ideation: No Patient has homicidal ideation: No - Past Medical History Cardiac Medical History: Reports: Hx Hypertension Pulmonary Medical History: Reports: Hx COPD Renal/ Medical History: Denies: Hx Peritoneal Dialysis GI Medical History: Reports: Hx Gastroesophageal Reflux Disease, Hx Ulcer - Associated with some lower GI bleeding Musculoskeletal Medical History: Reports Hx Arthritis - Immunizations Hx Diphtheria, Pertussis, Tetanus Vaccination: No Review of Systems - Review of Systems Constitutional: No symptoms reported EENT: No symptoms reported Cardiovascular: No symptoms reported Respiratory: No symptoms reported Gastrointestinal: No symptoms reported Genitourinary: No symptoms reported Musculoskeletal: See HPI Skin: No symptoms reported Neurological/Psychological: No symptoms reported Physical Exam - Vital signs Vitals: Resp BP Pulse Ox 18 159/94 H 95 05/28/19 10:57 05/28/19 10:57 05/28/19 10:57 - Notes Notes: Vital signs reviewed, please refer to chart. Head is normocephalic, atraumatic. Pupils equal round, reactive to light. Oral mucosa moist. Mallampati 1. Neck is supple without meningismus. Heart is regular rate and rhythm. Lungs are clear to auscultation bilaterally. Abdomen is soft, nontender, normoactive bowel sounds throughout. Extremities without cyanosis, clubbing. Posterior calves are nontender. Peripheral pulses are equal. Skin is warm and dry. Examination of the right upper extremity yields anterior sulcus sign at the shoulder consistent with anterior shoulder dislocation. He is full range of motion at the elbow, wrist, fingers, thumb. No paresthesias or numbness in the distribution of the axillary nerve. Radial pulse 2+. Capillary refill is brisk. Course - Re-evaluation Re-evalutation: 05/28/19 13:54 Patient presents to the emergency department for evaluation. His findings are most consistent with an anterior shoulder dislocation. I talked to him in great detail about conscious sedation for reduction of the right shoulder. He voiced understanding. He was placed on a residential monitor, oxygen per nasal cannula. Consent was signed and placed on the chart. We will proceed with conscious s edation. - Vital Signs Vital signs: Temp Pulse Resp BP Pulse Ox 97.8 F 100 15 141/77 H 100 05/28/19 10:58 05/28/19 14:40 05/28/19 14:40 05/28/19 14:40 05/28/19 14:40 - Diagnostic Test Radiology reviewed: Image reviewed, Reports reviewed Radiology results interpreted by me: 05/28/19 15:23 Shoulder X-Ray 05/28/19 00:00 IMPRESSION: Dislocated right shoulder similar to prior exam. Shoulder X-Ray 05/28/19 00:00 IMPRESSION: 2 separate frontal views of the right shoulder were submitted. 1 demonstrates persistent dislocation the 2nd demonstrates normal alignment. Both are timed 1435 hours. Procedures - Conscious Sedation Conscious sedation Time started: 14:30 Time completed: 14:45 Consent obtained: Yes Indication: Right shoulder dislocation Last meal: Coffee and water at 7 AM Pt with a mild systemic disease.: P2. - ASA Classification. Airway Evaluation: Obese Mallampati Classification: Class 1 Used during procedure: Suction available, IV access obtained, Pulse ox on pt., monitor and storage bin tender on pt. Medications administered: Diprivan Reversal agents: None I personally performed/intraservice time: Sedation, Procedure, 30 min or less Complications: No Notes: The procedure was explained in great detail. Questions were sought and answered. Consent was signed and placed on the chart. The patient was administered propofol. First using attempted Madai technique, then direct traction countertraction, I was able to successfully reduce the right anterior shoulder dislocation. Postprocedural film revealed reduction. Patient did have a mild decompensation of his pulse oxygenation, but was placed on a nonrebreather for approximately 2 minutes and oxygenating well. No [id number] required. Patient is awake and alert, states that shoulder feels improved. Neurovascularly intact. Shoulder immobilizer placed by myself as well as PCT. Neurovascularly intact following. Discharge - Discharge Clinical Impression: Recurrent dislocation, right shoulder Condition: Stable Disposition: HOME, SELF-CARE Instructions: Shoulder Dislocation ([facility]) Additional Instructions: Shoulder immobilizer as provided. Ewing as needed for severe pain, watch for dizziness, drowsiness, constipation with this medication. As discussed, please avoid alcohol as you are sedated here today. No driving, no other acute or important decisions in the next 24 to 48 hours. Follow up with primary care and orthopedics this week. Return to the emergency department for worsening or new concerning symptoms of any sort. Referrals: GEOFFREY CASIANO, ANANDAC [Primary Care Provider] - Follow up as needed
--- NOTE | 2019-05-28 15:08 | RADIOLOGY REPORT (SQ) ---
EXAM DESCRIPTION: SHOULDER RIGHT 1 VIEW COMPLETED DATE/TIME: 05/28/2019 2:46 pm REASON FOR STUDY: post conscious sedation COMPARISON: None. NUMBER OF VIEWS: Two views. TECHNIQUE: Frontal images acquired of the right shoulder. LIMITATIONS: None. FINDINGS: 2 separate frontal views of the right shoulder were submitted. On 1 there is a persistent dislocation on the 2nd humeral head appears to lie in normal anatomic position. IMPRESSION: 2 separate frontal views of the right shoulder were submitted. 1 demonstrates persisten t dislocation the 2nd demonstrates normal alignment. Both are timed 1435 hours. TECHNICAL DOCUMENTATION: JOB ID: [id number] [employer]- All Rights Reserved Reading location - IP/workstation name: [email or web address]
[2019-05-28] MEDS ORDERED: HYDROCODONE/ACETAMINOPHEN 5-325 MG (6 TAB/ER DISP) PO PRN (15:23)
[2019-05-28 15:54] VITALS: BP 162/88
== END 2019-05-28 15:51 | disposition home or self-care (01) ==
LOC: ER 10:47
PROC: 0RSJXZZ Reposition Right Shoulder Joint, External Approach (ICD-10-PCS; principal; 2019-05-28)
DX: M24.411 Recurrent dislocation, right shoulder (principal); M25.511 Pain in right shoulder; R20.0 Anesthesia of skin; F17.200 Nicotine dependence, unspecified, uncomplicated; I10 Essential (primary) hypertension; J44.9 Chronic obstructive pulmonary disease, unspecified
CPT/HCPCS: 99283; 99152; 96374; 73020; 73030; 23650; L3650; J3010; J2704

== ENCOUNTER 2019-05-31 14:40 | Emergency (ER) | payer MEDICARE, OTHER ==
--- NOTE | 2019-05-31 15:31 | RADIOLOGY REPORT (SQ) ---
EXAM DESCRIPTION: SHOULDER RIGHT 2 OR MORE VIEWS COMPLETED DATE/TIME: 05/31/2019 3:19 pm REASON FOR STUDY: bed 15 ? dislocated shoulder +tenderness COMPARISON: 05/28/2019. NUMBER OF VIEWS: Two views. TECHNIQUE: Frontal and lateral images acquired of the right shoulder. LIMITATIONS: None. FINDINGS: MINERALIZATION: Normal. BONES: No acute fracture. No worrisome bone lesions. JOINTS: Anterior dislocation. VISUALIZED LUNGS AND RIBS: No pneumothorax. No rib fracture. SOFT TISSUES: No radiopaque foreign body. OTHER: No other significant finding. IMPRESSION: ANTERIOR DISLOCATION. NO ACUTE FRACTURE. TECHNICAL DOCUMENTATION: JOB ID: [id number] [employer]- All Rights Reserved Reading location - IP/workstation name: [email or web address]
[2019-05-31] MEDS ORDERED: PROPOFOL INJ 200 MG/20 ML VIAL IV ONE ×2 (15:37→17:00)
--- NOTE | 2019-05-31 17:37 | RADIOLOGY REPORT (SQ) ---
EXAM DESCRIPTION: SHOULDER RIGHT 1 VIEW COMPLETED DATE/TIME: 05/31/2019 5:17 pm REASON FOR STUDY: reduction COMPARISON: 05/31/2019. NUMBER OF VIEWS: One view. TECHNIQUE: Frontal image acquired of the right shoulder. LIMITATIONS: None. FINDINGS: MINERALIZATION: Normal. BONES: No acute fracture. Chicken-Sachs lesion on the humeral head. No worrisome bone lesions. JOINTS: No dislocation. VISUALIZED LUNGS AND RIBS: No pneumothorax. No rib fracture. SOFT TISSUES: No radiopaque foreign body. OTHER: No other significant finding. IMPRESSION: INTERVAL CLOSED REDUCTION OF THE ANTERIOR SHOULDER DISLOCATION. TECHNICAL DOCUMENTATION: JOB ID: [id number] [employer]- All Rights Reserved Reading location - IP/workstation name: [email or web address]
[2019-05-31] MEDS ORDERED: NORMAL SALINE 500 ML IV ONE (18:27)
--- NOTE | 2019-05-31 18:32 | ER Document Report ---
ED General - General Chief Complaint: Shoulder Injury Stated Complaint: SHOULDER PAIN/INJURY Time Seen by Provider: 05/31/19 15:30 TRAVEL OUTSIDE OF THE [place] IN LAST 30 DAYS: No - HPI Notes: Patient is a 63-year-old gentleman, known to the emergency department, who presents to the emergency department for evaluation of shoulder pain. He has a history of chronic shoulder dislocations. In fact, I reduce the shoulder dislocation on him a few days ago. He admits he was not wearing his immobilizer, went to sleep, move his arm, and woke up with it out of place again. He denies any other injury. He does admit that he drank 1 beer today. - Related Data Allergies/Adverse Reactions: Penicillins Allergy (Verified 05/28/19 10:51) Past Medical History - General Information source: Patient - Social History Smoking Status: Current Some Day Smoker Frequency of alcohol use: Heavy Family History: Reviewed & Not Pertinent Patient has suicidal ideation: No Patient has homicidal ideation: No - Past Medical History Cardiac Medical History: Reports: Hx Hypertension Pulmonary Medical History: Reports: Hx COPD Renal/ Medical History: Denies: Hx Peritoneal Dialysis GI Medical History: Reports: Hx Gastroesophageal Reflux Disease, Hx Ulcer - Associated with some lower GI bleeding Musculoskeletal Medical History: Reports Hx Arthritis - Immunizations Hx Diphtheria, Pertussis, Tetanus Vaccination: No Review of Systems - Review of Systems Constitutional: No symptoms reported EENT: No symptoms reported Cardiovascular: No symptoms reported Respiratory: No symptoms reported Gastrointestinal: No symptoms reported Genitourinary: No symptoms reported Musculoskeletal: See HPI Skin: No symptoms reported Neurological/Psychological: No symptoms reported Physical Exam - Vital signs Vitals: Temp Pulse Resp BP Pulse Ox 98.2 F 73 16 135/69 H 97 05/31/19 14:46 05/31/19 14:46 05/31/19 14:46 05/31/19 14:46 05/31/19 14:46 - Notes Notes: This is a 63-year-old male who appears his stated age in no acute distress. Vital signs reviewed, please refer to chart. Head is normocephalic, atraumatic. Pupils equal round, reactive to light. Neck is supple without meningismus. Heart is regular rate and rhythm. Lungs are clear to auscultation bilaterally. Abdomen is soft, nontender, normoactive bowel sounds throughout. Extremities without cyanosis, clubbing. Posterior calves are nontender. P examination of the right upper extremity yields obvious deformity of the right shoulder consistent with an anterior dislocation. No sensory deficits. Neurovascularly intact of the right upper extremity. Course - Re-evaluation Re-evalutation: 05/31/19 18:29 Patient presented to the emergency department for evaluation of an anterior shoulder dislocation. He would require sedation for reduction. The procedure was explained in great detail, questions were sought and answered. Consent was signed and placed on the chart. Please see separate procedure note. Post reduction film revealed normal anatomical alignment. Patient will be referred on to Ortho, close follow-up. He is reminded he needs to maintain his shoulder immobilizer until follow-up. - Vital Signs Vital signs: Temp Pulse Resp BP Pulse Ox 98.7 F 73 32 H 125/62 93 05/31/19 16:55 05/31/19 14:46 05/31/19 18:01 05/31/19 18:01 05/31/19 18:00 Procedures - Conscious Sedation Conscious sedation Consent obtained: Yes Indication: Right shoulder dislocation Last meal: 12 hours prior Pt with a mild systemic disease.: P2. - ASA Classification. Airway Evaluation: Normal anatomy Mallampati Classification: Class 1 Used during procedure: Suction available, IV access obtained, Pulse ox on pt., groundwater monitoring technician on pt. Medications administered: Diprivan Reversal agents: None I personally performed/intraservice time: Sedation, Procedure, 30 min or less Notes: The procedure was explained in great detail. Questions were sought and answered. Consent was signed and placed on the chart. The patient was placed on a gambling monitor, oxygen per nasal cannula. He was administered propofol 100 mg IV slow push. I was able with traction/countertraction, to easily reduce the shoulder. The patient did have a mild drop in his blood pressure, transient only. He was given a 500 cc bolus. He had a mild hypoxia, treated with supplemental oxygen. The patient had postprocedural film which revealed normal anatomical alignment. He came back to neurological baseline, vitals baseline, and a few moments. Discharge - Discharge Clinical Impression: Recurrent dislocation, right shoulder Condition: Stable Disposition: HOME, SELF-CARE Instructions: Shoulder Dislocation ([facility]), Sling as Treatment ([facility]) Additional Instructions: Wear your shoulder immobilizer! Follow-up with orthopedist in 1 to 2 weeks. Return to the ED with worsening.
[2019-05-31 18:45] VITALS: BP 135/80
== END 2019-05-31 18:40 | disposition home or self-care (01) ==
LOC: ER 14:40
DX: M24.411 Recurrent dislocation, right shoulder (principal); Z91.19 Patient's noncompliance with other medical treatment and regimen; I10 Essential (primary) hypertension; J44.9 Chronic obstructive pulmonary disease, unspecified; F17.200 Nicotine dependence, unspecified, uncomplicated; Z88.0 Allergy status to penicillin
CPT/HCPCS: 23650; 99283; 96360; 99152; 73020; 73030; J7040; J2704

== ENCOUNTER → 2019-06-27 | Outpatient (CLI) | payer MEDICARE, OTHER ==
--- NOTE | 2019-06-28 13:19 | RADIOLOGY REPORT (SQ) ---
EXAM DESCRIPTION: MRI RT UPPER JOINT WITHOUT COMPLETED DATE/TIME: 06/27/2019 12:04 pm REASON FOR STUDY: RIGHT SHOULDER PAIN (M25.511) M25.511 PAIN IN RIGHT SHOULDER COMPARISON: Recent radiographs. TECHNIQUE: Right shoulder images acquired and stored on PACS. Multiplanar imaging to include fat sen sitive sequences such as T1, water sensitive sequences such as FST2/STIR, cartilage sensitive sequenc es such as FSPD/gradient-echo sequences. LIMITATIONS: Most sequences are at least moderately by motion artifact. Some sequences are markedly limited. FINDINGS: BONE MARROW AND CORTEX: Mild impaction deformity along the posterolateral humeral head con sistent with prior dislocation injury. There is also patchy marrow edema in the anterior humerus whi ch appears to predominantly involve the lesser tuberosity. There may be mild cystic changes here. N o displaced fracture but limited assessment. JOINT OR BURSAL EFFUSION: Sizable joint effusion communicates with the bursa via full thickness cuff tear. GLENO-HUMERAL ARTICULATION: Mild superior migration of the humeral head. Chondral thinning is sugges aviva diffusely, poor evaluation. ACROMION AND AC JOINT: AC joint with mild degenerative overgrowth. ROTATOR CUFF AND INTERVAL: Full thickness cuff tear supraspinatus. There is retraction at least to t he glenohumeral joint. Degree of retraction limits assessment for atrophy. At least some of the inf raspinatus fibers are intact. The subscapularis looks essentially completely torn, ill-defined and r etracted. LABRUM AND BICEPS LABRAL COMPLEX: Limited assessment. Superior labrum is likely torn. Biceps tend on integrity cannot be confirmed. REMAINDER OF LABRUM AND IGHL : Poorly assessed. Generalized degenerative loss. PERIARTICULAR AND ADJACENT SOFT TISSUES: No regional mass or axillary adenopathy. OTHER: No other significant finding. IMPRESSION: 1. Full-thickness cuff tear supraspinatus with retraction. There is also significant subscapularis t ear. 2. Evidence of previous dislocation, see above. This includes significant Hill-Sachs impaction defor mity. 3. Significantly limiting motion. TECHNICAL DOCUMENTATION: JOB ID: [id number] 2010 [employer]- All Rights Reserved Reading location - IP/workstation name: [email or web address]
== END ==
LOC: RAD 10:35
PROVIDERS: ATTEND Orthopaedic Surgery
DX: M75.121 Complete rotator cuff tear or rupture of right shoulder, not specified as traumatic (principal); M25.511 Pain in right shoulder

== ENCOUNTER 2019-09-04 14:35 | Emergency (ER) | payer MEDICARE, OTHER ==
--- NOTE | 2019-09-04 15:08 | RADIOLOGY REPORT (SQ) ---
EXAM DESCRIPTION: SHOULDER RIGHT 2 OR MORE VIEWS IMAGES COMPLETED DATE/TIME: 09/04/2019 2:57 pm REASON FOR STUDY: bed 13 fall +deformity noted + tenderness COMPARISON: 05/31/2019 NUMBER OF VIEWS: Two views TECHNIQUE: AP and Y-view images acquired of the right shoulder. LIMITATIONS: None. FINDINGS: MINERALIZATION: Decreased. BONES: Anterior shoulder dislocation with likely associated Hill-Sachs deformity. JOINTS: Dislocation as above. VISUALIZED LUNGS AND RIBS: No pneumothorax. No rib fracture. SOFT TISSUES: No radiopaque foreign body. OTHER: No other significant finding. IMPRESSION: Anterior right shoulder dislocation with likely associated Hill-Sachs deformity. TECHNICAL DOCUMENTATION: JOB ID: [id number] 2010 [employer]- All Rights Reserved Reading location - IP/workstation name: [email or web address]
[2019-09-04] MEDS ORDERED: ETOMIDATE INJ/PF 20 MG/10 ML SDV IV ONE (15:23)
--- NOTE | 2019-09-04 15:28 | ER Document Report ---
ED General - General Chief Complaint: Shoulder Injury Stated Complaint: SHOULDER INJURY Time Seen by Provider: 09/04/19 14:47 Primary Care Provider: SHAR SCANLON JR, [Primary Care Provider] - Follow up as needed TRAVEL OUTSIDE OF THE [place] IN LAST 30 DAYS: No - HPI Notes: Chief complaint: Right shoulder injury HPI: 64-year-old male well-known to this emergency department with recurrent dislocations of right shoulder presenting now via EMS with recurrence of same. This pain is seen orthopedics and is been scheduled for elective surgical repair of the shoulder but this is been delayed because of current cancellation of all elective surgeries due to COVID virus pandemic. Patient said he reached up to get something off a shelf at home about 30 minutes prior to arrival here at that time the shoulder popped out again. Patient has not had anything to eat or drink within the last 5 hours. He has a history of penicillin allergy. He is tolerated procedural sedation in the past without difficulty. He has a history of mild hypertension and is otherwise in good general health. - Related Data Allergies/Adverse Reactions: Penicillins Allergy (Verified 05/28/19 10:51) Past Medical History - General Information source: Patient, Emergency Med Personnel, [facility] Records - Social History Smoking Status: Unknown if Ever Smoked Family History: Reviewed & Not Pertinent Patient has suicidal ideation: No Patient has homicidal ideation: No - Past Medical History Cardiac Medical History: Reports: Hx Hypertension Pulmonary Medical History: Reports: Hx COPD Renal/ Medical History: Denies: Hx Peritoneal Dialysis GI Medical History: Reports: Hx Gastroesophageal Reflux Disease, Hx Ulcer - Associated with some lower GI bleeding Musculoskeletal Medical History: Reports Hx Arthritis - Immunizations Hx Diphtheria, Pertussis, Tetanus Vaccination: No Review of Systems - Review of Systems Notes: Constitutional: Negative for fever. HENT: Negative for sore throat. Eyes: Negative for visual changes. Cardiovascular: Negative for chest pain. Respiratory: Negative for shortness of breath. Gastrointestinal: Negative for abdominal pain, vomiting or diarrhea. Genitourinary: Negative for dysuria. Musculoskeletal: As per HPI. Skin: Negative for rash. Neurological: Negative for headaches, weakness or numbness. 10 point ROS negative except as marked above and in HPI. Physical Exam - Vital signs Vitals: Temp Pulse Resp BP Pulse Ox 97.7 F 81 18 123/71 96 09/04/19 14:35 09/04/19 14:35 09/04/19 14:35 09/04/19 14:35 09/04/19 14:35 - Notes Notes: GENERAL: Somewhat obese elderly male approximately stated age appearing in no acute distress. SKIN: Good turgor no rashes. HEAD: Normocephalic atraumatic. EYES: PERRLA. EOMI. Conjunctivae and sclerae clear. NECK: Supple. No masses or thyromegaly. No adenopathy. Carotids 2+ without bruits. No JVD. BACK: Symmetrical without tenderness. CHEST: Respirations unlabored. Breath sounds clear and symmetrical. HEART: Regular rhythm. No murmur gallop or rub. ABDOMEN: Soft nontender without masses, organomegaly or rebound. Bowel sounds normally active. No bruits. EXTREMITIES: Obvious anterior dislocation of right shoulder. The right upper extremity is held close to the body and abduction. Distal neurovascular exam is all normal. No calf tenderness. Cap refill less than 1.5 seconds. Dorsalis pedis and posterior tibial pulses 3+ and symmetrical. NEUROLOGICAL: Alert and oriented x3. Nonfocal. PSYCHIATRIC: Appropriate affect. Course - Re-evaluation Re-evalutation: 09/04/19 18:16 Patient has experienced recurrent dislocation of the right shoulder which brings him back to the ED via EMS today. This was confirmed radiographically and subsequently the joint was reduced under procedural sedation using etomidate IV without complications. Satisfactory reduction is confirmed by postreduction x- ray. 1 dose of Toradol was given for pain IV. Patient is discharged with a shoulder immobilizer in place for outpatient follow-up with orthopedics. - Vital Signs Vital signs: Temp Pulse Resp BP Pulse Ox 97.7 F 81 20 190/104 H 97 09/04/19 14:35 09/04/19 14:35 09/04/19 17:56 09/04/19 17:56 09/04/19 17:56 - Diagnostic Test Radiology reviewed: Reports reviewed - Radiologist reports anterior dislocation right shoulder joint with possible Hill-Sachs deformity. Procedures - Conscious Sedation Conscious sedation Time started: 17:50 Time completed: 18:05 Consent obtained: Yes Indication: Right shoulder dislocation Last meal: Greater than 5 hours Emergent conditions applies.: E. - ASA Classification Pt with a mild systemic disease.: P2. - ASA Classification. Airway Evaluation: Obese Mallampati Classification: Class 2 Used during procedure: Suction available, IV access obtained, Pulse ox on pt., nuclear monitoring technician on pt. Medications administered: Etomidate I personally performed/intraservice time: Sedation, Procedure, 30 min or less Complications: No - Immobilization Right Shoulder Pre-Proc Neuro Vasc Exam: Normal Immobilizer type: Shoulder immobilizer Performed by: RN Post-Proc Neuro Vasc Exam: Normal Alignment checked and good: Yes - Joint Reduction/Fracture Care Right Shoulder Time completed: 18:05 Consent obtained: Yes Conscious sedation: Yes Pre-procedure NV exam: Yes Manipulation comment: traction/countertraction Post-procedure NV exam: Yes Post-reduction x-ray: Joint reduced Reduction attempts: 1 - Very unstable joint Complications: No Notes: 09/04/19 18:04 Traction/countertraction technique. Well-tolerated w/o complications. Discharge - Discharge Clinical Impression: Recurrent dislocation, right shoulder Condition: Stable Disposition: HOME, SELF-CARE Instructions: Oral Narcotic Medication ([facility]), Shoulder Dislocation ([facility]), Sling as Treatment ([facility]) Prescriptions: Oxycodone HCl/Acetaminophen [Percocet 5-325 mg Tablet] 1 - 2 tab PO Q4H PRN #15 tablet PRN Reason: Oxycodone HCl/Acetaminophen [Percocet 5-325 mg Tablet] 1 - 2 tab PO Q4H PRN #15 tablet PRN Reason: Referrals: SHAR SCANLON JR, DO [Primary Care Provider] - Follow up as needed
[2019-09-04] MEDS ORDERED: ONDANSETRON HCL INJ/PF 4 MG/2 ML SDV IV ONE (17:46)
[2019-09-04] MEDS ORDERED: KETOROLAC TROMETHAMINE INJ/PF 30 MG/1 ML SDV IV ONE (18:15)
--- NOTE | 2019-09-04 18:33 | RADIOLOGY REPORT (SQ) ---
EXAM DESCRIPTION: SHOULDER RIGHT 2 OR MORE VIEWS IMAGES COMPLETED DATE/TIME: 09/04/2019 6:17 pm REASON FOR STUDY: post-reduction COMPARISON: 09/04/2019 pre reduction radiographs. FINDINGS: 2 images, AP and scapular Y. Dislocation appears to have been reduced. Impaction fracture in the humeral head laterally, chronic. TECHNICAL DOCUMENTATION: JOB ID: [id number] Reading location - IP/workstation name: [email or web address]
[2019-09-04 18:43] VITALS: BP 181/95
== END 2019-09-04 19:09 | disposition home or self-care (01) ==
LOC: ER 14:35
PROC: 0RSJXZZ Reposition Right Shoulder Joint, External Approach (ICD-10-PCS; principal; 2019-09-04)
DX: M24.411 Recurrent dislocation, right shoulder (principal); S49.91XA Unspecified injury of right shoulder and upper arm, initial encounter; X58.XXXA Exposure to other specified factors, initial encounter; Z88.0 Allergy status to penicillin; J44.9 Chronic obstructive pulmonary disease, unspecified
CPT/HCPCS: 99283; 99152; 96374; 96375; 73030; 23650; J1885; J2405; J3490

== ENCOUNTER 2019-09-28 20:10 | Emergency (ER) | payer MEDICARE, OTHER ==
[2019-09-28] MEDS ORDERED: ETOMIDATE INJ/PF 20 MG/10 ML SDV IV ONE (21:09)
--- NOTE | 2019-09-28 21:12 | RADIOLOGY REPORT (SQ) ---
2 VIEWS OF RIGHT SHOULDER EXAM DATE: 09/28/2019 8:20 PM CDT HISTORY: Shoulder pain. COMPARISON: 09/04/2019 FINDINGS: There is anterior dislocation of the humeral head with respect to the glenoid. There is an old Hill-Sachs fracture. There is mild surrounding soft tissue swelling. IMPRESSION: Anterior glenohumeral dislocation.
--- NOTE | 2019-09-28 21:49 | ER Document Report ---
ED General - General Chief Complaint: Shoulder Injury Stated Complaint: RIGHT SHOULDER INJURY Time Seen by Provider: 09/28/19 20:20 Primary Care Provider: SHAR SCANLON JR, [Primary Care Provider] - Follow up as needed TRAVEL OUTSIDE OF THE [place] IN LAST 30 DAYS: No - HPI Notes: Patient is a 64-year-old male, well-known to this emergency department and and this physician, who presents to the emergency department for evaluation of a right shoulder dislocation. He states he was wearing a shoulder immobilizer, but released it to cook his dinner. He stretched and believes he pulled his shoulder out of socket. He has pain but denies any numbness. He states his arm feels weaker. He admits to drinking alcohol today, states only "2 or 3 beers." - Related Data Allergies/Adverse Reactions: Penicillins Allergy (Verified 05/28/19 10:51) Past Medical History - General Information source: Patient - Social History Smoking Status: Current Every Day Smoker Frequency of alcohol use: Heavy Drug Abuse: None Family History: Reviewed & Not Pertinent Patient has homicidal ideation: No - Past Medical History Cardiac Medical History: Reports: Hx Hypertension Pulmonary Medical History: Reports: Hx COPD Renal/ Medical History: Denies: Hx Peritoneal Dialysis GI Medical History: Reports: Hx Gastroesophageal Reflux Disease, Hx Ulcer - Associated with some lower GI bleeding Musculoskeletal Medical History: Reports Hx Arthritis - Immunizations Hx Diphtheria, Pertussis, Tetanus Vaccination: No Review of Systems - Review of Systems Musculoskeletal: See HPI -: Yes All other systems reviewed and negative Physical Exam - Vital signs Vitals: Temp Pulse Resp BP Pulse Ox 97.6 F 81 16 118/63 94 09/28/19 20:17 09/28/19 20:17 09/28/19 20:17 09/28/19 20:17 09/28/19 20:17 - Notes Notes: This is is mildly disheveled 64-year-old male who appears his stated age, no acute distress. Head is normocephalic and atraumatic, pupils equal round, reactive to light. Oral mucosa is moist. Heart regular rate and rhythm, lungs are clear to oscillation bilaterally. Examination of the right upper extremity yields obvious deformity at the shoulder and anterior sulcus sign. He has no loss of sensation at the distribution of the axillary nerve. He is neurovascularly intact distally. Skin is warm and dry. Course - Re-evaluation Re-evalutation: 09/28/19 21:51 Patient presents to the emergency department for evaluation. He has recurrent shoulder dislocations. He has a clear anterior dislocation on physical exam and x-ray. Patient shoulder was reduced without difficulty. Please see separate procedure note. The importance of close follow-up with orthopedics as well as maintaining his shoulder and knee immobilizer was stressed and the patient voiced understanding. He is to return to the ED with worsening. - Vital Signs Vital signs: Temp Pulse Resp BP Pulse Ox 97.6 F 81 16 118/63 94 09/28/19 20:18 09/28/19 20:17 09/28/19 20:17 09/28/19 20:17 09/28/19 20:17 - Diagnostic Test Radiology reviewed: Image reviewed, Reports reviewed Radiology results interpreted by me: 09/28/19 21:52 Shoulder X-Ray 09/28/19 20:20 IMPRESSION: Anterior glenohumeral dislocation. 09/28/19 21:52 Postreduction film shows reduction Procedures - Conscious Sedation Conscious sedation Time started: 21:36 Time completed: 21:44 Consent obtained: Yes Indication: Right shoulder dislocation Pt with a mild systemic disease.: P2. - ASA Classification. Airway Evaluation: Normal anatomy Mallampati Classification: Class 2 Used during procedure: Suction available, IV access obtained, Pulse ox on pt., manager monitoring on pt. Medications administered: Etomidate - 15 mg Reversal agents: None I personally performed/intraservice time: Sedation, 30 min or less Complications: No Notes: The procedure was explained to great detail. Questions were sought and answered. "Consent was signed and placed on the chart. The patient was placed on oxygen per nasal cannula, media monitor. IV was established. The patient was administered etomidate 15 mg of IV push. Once adequate analgesia and sedation was achieved. Using traction countertraction, the shoulder was easily reduced. Post reduction films showed normal anatomical alignment. Patient was put back in the shoulder immobilizer. Neurovascularly intact following. No complications. Discharge - Discharge Clinical Impression: Recurrent dislocation, right shoulder Condition: Stable Disposition: HOME, SELF-CARE Instructions: Shoulder Dislocation ([facility]) Additional Instructions: Wear your immobilizer as discussed. Follow-up with orthopedics as soon as possible. Tylenol as needed for pain. Return to the emergency department worsening or new concerning symptoms of any sort. Referrals: SHAR SCANLON JR, DO [Primary Care Provider] - Follow up as needed
[2019-09-28 21:59] VITALS: BP 143/81
--- NOTE | 2019-09-28 22:19 | RADIOLOGY REPORT (SQ) ---
1 VIEW OF RIGHT SHOULDER EXAM DATE: 09/28/2019 9:38 PM CDT HISTORY: Shoulder dislocation. COMPARISON: Radiographs from earlier the same day. FINDINGS: There has been interval reduction of the anterior glenohumeral dislocation. There is a Hill-Sachs fracture noted. IMPRESSION: Successful reduction of anterior shoulder dislocation.
== END 2019-09-28 22:11 | disposition home or self-care (01) ==
LOC: ER 20:10
DX: M24.411 Recurrent dislocation, right shoulder (principal)
CPT/HCPCS: 99283; 99152; 73020; 73030; 23650; J3490

== ENCOUNTER 2019-11-02 08:12 | Emergency (ER) | payer MEDICARE, OTHER ==
[2019-11-02] MEDS ORDERED: ETOMIDATE INJ/PF 20 MG/10 ML SDV IV ONE (08:42)
--- NOTE | 2019-11-02 08:43 | RADIOLOGY REPORT (SQ) ---
EXAM DESCRIPTION: SHOULDER RIGHT 2 OR MORE VIEWS IMAGES COMPLETED DATE/TIME: 11/02/2019 8:32 am REASON FOR STUDY: displaced COMPARISON: 09/28/2019 NUMBER OF VIEWS: Two views. TECHNIQUE: AP and Y-view images acquired of the right shoulder. LIMITATIONS: None. FINDINGS: MINERALIZATION: Normal. BONES: No definite acute fractures identified at this time JOINTS: There is an anterior dislocation of the glenohumeral joint. VISUALIZED LUNGS AND RIBS: No pneumothorax. No rib fracture. SOFT TISSUES: No radiopaque foreign body. OTHER: No other significant finding. IMPRESSION: Anterior dislocation of the glenohumeral joint TECHNICAL DOCUMENTATION: JOB ID: [id number] 2010 [employer]- All Rights Reserved Reading location - IP/workstation name: [email or web address]
--- NOTE | 2019-11-02 09:38 | RADIOLOGY REPORT (SQ) ---
EXAM DESCRIPTION: SHOULDER RIGHT 2 OR MORE VIEWS IMAGES COMPLETED DATE/TIME: 11/02/2019 9:27 am REASON FOR STUDY: post reduction COMPARISON: 11/02/2019 and 09/04/2019 NUMBER OF VIEWS: Two views. TECHNIQUE: AP and Y-view images acquired of the right shoulder. LIMITATIONS: None. FINDINGS: MINERALIZATION: Normal. BONES: A large Hill-Sachs deformity is present, unchanged from prior examinations. No definite acute fracture is appreciated. JOINTS: The anterior dislocation seen on prior exam has been reduced. Glenohumeral alignment is now anatomic. Degenerative changes are present about the glenohumeral and acromioclavicular joints. VISUALIZED LUNGS AND RIBS: No pneumothorax. No rib fracture. SOFT TISSUES: No radiopaque foreign body. OTHER: No other significant finding. IMPRESSION: Interval reduction of the anterior dislocation of the right glenohumeral joint TECHNICAL DOCUMENTATION: JOB ID: [id number] 2010 [employer]- All Rights Reserved Reading location - IP/workstation name: [email or web address]
--- NOTE | 2019-11-02 10:23 | ER Document Report ---
Entered by SANTIAGO ADLER SCRIBE 11/02/19 0833 Acting as scribe for:KIARA HAMMOND MD ED Shoulder Pain/Injury - General Chief Complaint: Shoulder Pain Stated Complaint: SHOULDER PAIN Time Seen by Provider: 11/02/19 08:23 Information source: Patient Notes: This 64 year old male patient presents to the emergency department today with pain in his right shoulder. Patient states he woke up this morning with right shoulder pain and thinks it is dislocated. Patient states he has dislocated his shoulder x5 times in the past x1 year since an injury x5 years ago. Patient states this usually happens while he is asleep and rolls over his shoulder. Patient states he has a surgery scheduled in x19 days for his right shoulder, that was postponed previously. TRAVEL OUTSIDE OF THE [place] IN LAST 30 DAYS: No - Related Data Allergies/Adverse Reactions: Penicillins Allergy (Verified 05/28/19 10:51) Past Medical History - General Information source: Patient - Social History Smoking Status: Current Every Day Smoker Cigarette use (# per day): Yes - 1 pack per day Family History: Reviewed & Not Pertinent Patient has homicidal ideation: No - Past Medical History Cardiac Medical History: Reports: Hx Hypertension Pulmonary Medical History: Reports: Hx COPD GI Medical History: Reports: Hx Gastroesophageal Reflux Disease, Hx Ulcer - Associated with some lower GI bleeding Musculoskeletal Medical History: Reports Hx Arthritis Traumatic Medical History: Reports: Other - Right shoulder injury - Immunizations Hx Diphtheria, Pertussis, Tetanus Vaccination: No Review of Systems - Review of Systems Constitutional: No symptoms reported EENT: No symptoms reported Cardiovascular: No symptoms reported Respiratory: No symptoms reported Gastrointestinal: No symptoms reported Genitourinary: No symptoms reported Male Genitourinary: No symptoms reported Musculoskeletal: See HPI, Other - R shoulder pain Skin: No symptoms reported Hematologic/Lymphatic: No symptoms reported Neurological/Psychological: No symptoms reported -: Yes All other systems reviewed and negative Physical Exam - Vital signs Vitals: Temp 97.7 F 11/02/19 08:12 - General General appearance: Appears well, Alert - HEENT Head: Normocephalic, Atraumatic Eyes: Normal Pupils: PERRL - Respiratory Respiratory status: No respiratory distress Chest status: Nontender Breath sounds: Other - Mild expiratory wheezing Chest palpation: Normal - Cardiovascular Rhythm: Regular Heart sounds: Normal auscultation, S1 appreciated, S2 appreciated Murmur: No - Abdominal Inspection: Normal - Soft Distension: No distension Bowel sounds: Normal Tenderness: Nontender - Extremities General lower extremity: Normal inspection. No: Edema Shoulder: Tender - Right, Dislocation - Right, Other - R arm held in sling Hand: Other - Sensation intact in all 5 fingers of R hand. - Neurological Neuro grossly intact: Yes Cognition: Normal Orientation: AAOx4 Speech: Normal - Psychological Associated symptoms: Normal affect, Normal mood - Skin Skin Temperature: Warm Skin Moisture: Dry Skin Color: Normal Course - Re-evaluation Re-evalutation: 11/02/19 09:25 Patient still recovering from procedural sedation and closed reduction of right shoulder anterior dislocation. Postprocedural x-ray shows successful reduction of anterior dislocation. - Vital Signs Vital signs: Temp Pulse Resp BP Pulse Ox 97.7 F 78 22 H 148/83 H 100 11/02/19 08:17 11/02/19 08:17 11/02/19 09:23 11/02/19 09:23 11/02/19 09:23 - Diagnostic Test Radiology reviewed: Image reviewed, Reports reviewed Radiology results interpreted by me: 11/02/19 09:26 Right shoulder x-ray initial shows anterior dislocation of the right shoulder. Postreduction x-ray shows successful reduction of the dislocation. No fracture noted. Procedures - Joint Reduction/Fracture Care Right Anterior Shoulder Time completed: 09:18 Consent obtained: Yes Conscious sedation: Yes Pre-procedure NV exam: Yes Fracture: Other - no fracture Manipulation comment: traction/counter traction Post-procedure NV exam: Yes Post-reduction x-ray: Joint reduced Reduction attempts: 1 Complications: No Discharge - Discharge Clinical Impression: Dislocation of shoulder, anterior, right, closed Condition: Stable Disposition: HOME, SELF-CARE Additional Instructions: Recommend oidi-ibx-hlrlxad Tylenol 1000 mg twice a day if needed for pain shoul sathish Dislocation You've had a shoulder dislocation. Even after the shoulder is put back in place, careful care is needed to prevent further problems. As the shoulder dislocated, injury to the joint itself occurred. This must be allowed to heal. The usual treatment is a shoulder immobilizing sling. If this is your first dislocation, it must be left in place until the doctor allows you to remove it. This is important. Ice pack the shoulder frequently. One of the most important aspects of care for a shoulder dislocation is mobility exercises and strengthening exercises. You'll start these when it's safe to start moving the shoulder joint. Be sure to keep your follow-up appointments. If you develop numbness in the arm or hand, weakness of the hand muscles, arm swelling, or arm discoloration, call the doctor or return immediately. Wear shoulder immobilizer as instructed until further instructions per your orthopedic doctor Please follow-up as soon as possible with your orthopedic doctor. And continued in pursuit of your shoulder surgery to prevent you from having recurrent shoulder dislocations. Prescriptions: Oxycodone HCl/Acetaminophen [Percocet 5-325 mg Tablet] 1 tab PO Q6H PRN 2 Days #8 tab PRN Reason: pain I personally performed the services described in the documentation, reviewed and edited the documentation which was dictated to the scribe in my presence, and it accurately records my words and actions.
[2019-11-02 10:49] VITALS: BP 168/81
== END 2019-11-02 10:49 | disposition home or self-care (01) ==
LOC: ER 08:12
PROC: 0RSJXZZ Reposition Right Shoulder Joint, External Approach (ICD-10-PCS; principal; 2019-11-02)
DX: M24.411 Recurrent dislocation, right shoulder (principal); M25.511 Pain in right shoulder; F17.210 Nicotine dependence, cigarettes, uncomplicated; Z88.0 Allergy status to penicillin; J44.9 Chronic obstructive pulmonary disease, unspecified; I10 Essential (primary) hypertension
CPT/HCPCS: 99283; 73030; 23650; J3490

== ENCOUNTER 2019-11-03 20:36 | Emergency (ER) | payer MEDICARE, OTHER ==
[2019-11-03] MEDS ORDERED: ONDANSETRON HCL INJ/PF 4 MG/2 ML SDV IV ONE (21:13)
[2019-11-03] MEDS ORDERED: MORPHINE SULFATE 10 MG/ML INJ IV ONE (21:13)
--- NOTE | 2019-11-03 21:14 | ER Document Report ---
ED Extremity Problem, Upper <EMMA BAE JR - Last Filed: 11/03/19 23:31> - General TRAVEL OUTSIDE OF THE [place] IN LAST 30 DAYS: No <JANES BUSTILLO - Last Filed: 11/04/19 00:07> - General Chief Complaint: Shoulder Injury Stated Complaint: SHOULDER INJURY Time Seen by Provider: 11/03/19 21:04 Notes: Patient is a 64-year-old male that comes to the emergency department for chief complaint of right shoulder injury and probable dislocation. Patient woke up yesterday with a dislocated shoulder, came in here yesterday and had the shoulder reduced, was placed in a shoulder immobilizer. He states that the shoulder immobilizer became irritating today, he took it off, was not thinking and rolled over onto his shoulder in bed and believes he dislocated it. He den ies numbness, he denies any other injuries or any other complaints. Past medical history of hypertension, smoking, atrial fibrillation. Denies blood thinner use, MD/stents, COPD, asthma, or any history of procedural/sedation complications. (JANES BUSTILLO) - Related Data Allergies/Adverse Reactions: Penicillins Allergy (Verified 05/28/19 10:51) Past Medical History - Social History Smoking Status: Current Every Day Smoker Frequency of alcohol use: Heavy Drug Abuse: None Family History: Reviewed & Not Pertinent Patient has homicidal ideation: No - Past Medical History Cardiac Medical History: Reports: Hx Hypertension Pulmonary Medical History: Reports: Hx COPD Renal/ Medical History: Denies: Hx Peritoneal Dialysis GI Medical History: Reports: Hx Gastroesophageal Reflux Disease, Hx Ulcer - Associated with some lower GI bleeding Musculoskeletal Medical History: Reports Hx Arthritis - Immunizations Hx Diphtheria, Pertussis, Tetanus Vaccination: No <JANES BUSTILLO - Last Filed: 11/04/19 00:07> Physical Exam - Vital signs Vitals: Temp 98.1 F 11/03/19 20:36 Course - Vital Signs Vital signs: Temp Pulse Resp BP Pulse Ox 98.1 F 83 15 145/83 H 98 11/03/19 20:48 11/03/19 23:45 11/03/19 23:45 11/03/19 23:45 11/03/19 23:45 Procedures - Joint Reduction/Fracture Care Right Shoulder Time completed: 23:25 Consent obtained: Yes Conscious sedation: Yes Pre-procedure NV exam: Yes - I was in the room with Janes BAEZ and Amanda ; I was for conscious sedation Post-procedure NV exam: Yes Post-reduction x-ray: Joint reduced Complications: Yes - Patient required some bagging for a few minutes but quickly recovered talki <BAREFOOTEMMA JR - Last Filed: 11/03/19 23:31> Discharge <EMMA BAE JR - Last Filed: 11/03/19 23:31> <JANES BUSTILLO - Last Filed: 11/04/19 00:07> - Discharge Clinical Impression: Recurrent dislocation, right shoulder Dislocation of shoulder, anterior, right, closed Qualifiers: Encounter type: initial encounter Qualified Code(s): S43.014A - Anterior dislocation of right humerus, initial encounter Condition: Stable Disposition: HOME, SELF-CARE Instructions: Shoulder Dislocation ([facility]), Oral Narcotic Medication ([facility]), Sling as Treatment ([facility]) Additional Instructions: Please wear the shoulder immobilizer. Take the provided pain medication, fill your pain medication prescription, consider indj-nvt-harhpeq MiraLAX daily while taking to avoid constipation. If you do not take the pain medication you can take 1000 mg of Tylenol every 6 hours. Call and closely follow-up with your orthopedic surgeon for additional management. Return for any concerning symptoms including severe worsening pain or swelling, or any other concerning symptoms.
[2019-11-03] MEDS ORDERED: PROPOFOL INJ 200 MG/20 ML VIAL IV ONE (22:03)
[2019-11-03] MEDS ORDERED: KETAMINE HCL INJ 500 MG/10 ML VIAL IV ONE (22:04)
--- NOTE | 2019-11-03 22:28 | RADIOLOGY REPORT (SQ) ---
3 VIEWS RIGHT SHOULDER EXAM DATE: 11/03/2019 9:11 PM CDT HISTORY: Shoulder pain. COMPARISON: 11/02/2019 FINDINGS: There is anterior dislocation of the humeral head with respect to the glenoid. There is a large Hill-Sachs defect. There is mild surrounding soft tissue swelling. IMPRESSION: Recurrent anterior glenohumeral dislocation.
[2019-11-03 23:44] VITALS: BP 145/83
--- NOTE | 2019-11-03 23:52 | RADIOLOGY REPORT (SQ) ---
Right shoulder two view on 11/03/2019 at 11:34 PM Clinical dictation: Post reduction COMPARISON: 11/03/2019 at 9:50 PM FINDINGS: There has been successful reduction of the prior anterior shoulder dislocation. The glenohumeral joint now is well located. On one of the views the AC joint appears well aligned but on the other view the distal clavicle is significantly elevated in relation to the acromium consistent with AC joint separation. No acute fracture is noted. IMPRESSION: 1. Successful reduction of the prior anterior shoulder dislocation. 2. On one of the views the distal clavicle is noted to be significantly elevated in relation to the acromion consistent with AC joint separation.
[2019-11-04] MEDS ORDERED: HYDROCODONE/ACETAMINOPHEN 5-325 MG (6 TAB/ER DISP) PO PRN (00:06)
== END 2019-11-04 00:40 | disposition home or self-care (01) ==
LOC: ER 20:36
DX: M24.411 Recurrent dislocation, right shoulder (principal); S43.014A Anterior dislocation of right humerus, initial encounter; X58.XXXA Exposure to other specified factors, initial encounter; Y92.009 Unspecified place in unspecified non-institutional (private) residence as the place of occurrence of the external cause; F17.200 Nicotine dependence, unspecified, uncomplicated; I10 Essential (primary) hypertension; J44.9 Chronic obstructive pulmonary disease, unspecified; Z88.0 Allergy status to penicillin
CPT/HCPCS: 99283; 99152; 96374; 96375; 73030; 23650; J2270; J2405; J2704; A9270

== ENCOUNTER 2019-12-05 17:00 | Emergency (ER) | payer MEDICARE, OTHER ==
[2019-12-05] MEDS ORDERED: PROPOFOL INJ 200 MG/20 ML VIAL IV ONE (17:21)
--- NOTE | 2019-12-05 17:23 | ER Document Report ---
ED Extremity Problem, Upper - General Chief Complaint: Shoulder Injury Stated Complaint: RIGHT SHOULDER PAIN Time Seen by Provider: 12/05/19 17:08 Notes: HPI: 64-year-old male with past medical history as recorded including multiple right shoulder dislocations with an upcoming orthopedic surgery for fixation who presents today after lifting water and can feeling his shoulder "pop". He denies pain to any other injury. He did not fall. He denies any swelling or discoloration to the arm. ROS: See HPI All other review of systems reviewed and otherwise negative Reviewed vital signs and nursing note as charted by RN. PHYSICAL EXAM: CONSTITUTIONAL: Alert and oriented and responds appropriately to questions. Well-appearing; well-nourished HEAD: Normocephalic; atraumatic CARD: Regular rate and rhythm; no murmurs; symmetric distal pulses RESP: Normal chest excursion without splinting or tachypnea; breath sounds clear and equal bilaterally; no wheezes, no rhonchi, no rales ABD/GI: Normal bowel sounds; non-distended; soft, non-tender BACK: The back appears normal and is non-tender to palpation EXT: Decreased range of motion with loss of fullness to the right lateral shoulder with excellent distal pulses with sensation intact over the lateral deltoid SKIN: No acute lesions noted NEURO: CN 2-12 intact; limited range of motion of the right upper extremity secondary to pain PSYCH: The patient's mood and manner are appropriate. Grooming and personal hygiene are appropriate. TRAVEL OUTSIDE OF THE [place] IN LAST 30 DAYS: No - Related Data Allergies/Adverse Reactions: Penicillins Allergy (Verified 12/05/19 17:17) Home Medications: Lyrica, Toprol, Lisinopril, Tylenol Past Medical History - Social History Smoking Status: Current Every Day Smoker Frequency of alcohol use: 2-3 beers/day Drug Abuse: None Family History: Reviewed & Not Pertinent - Past Medical History Cardiac Medical History: Reports: Hx Hypertension Pulmonary Medical History: Reports: Hx COPD Renal/ Medical History: Denies: Hx Peritoneal Dialysis GI Medical History: Reports: Hx Gastroesophageal Reflux Disease, Hx Ulcer - Associated with some lower GI bleeding Musculoskeletal Medical History: Reports Hx Arthritis - Immunizations Hx Diphtheria, Pertussis, Tetanus Vaccination: No Physical Exam - Vital signs Vitals: Temp 98.4 F 12/05/19 17:01 Course - Re-evaluation Re-evalutation: 12/05/19 17:23 Given the above history and physical I did attempt to perform the Hurtado maneuver without success. I will order a portable x-ray of the shoulder and then most likely require conscious sedation. I explained the risks and benefits the patient and he understands these. X-ray as recorded. 12/05/19 18:30 Conscious sedation and dislocation reduction successful. Sensation is intact to the lateral deltoid and neurovascularly intact distal right extremity. - Vital Signs Vital signs: Temp Pulse Resp BP Pulse Ox 98.4 F 76 22 H 124/61 100 12/05/19 17:13 12/05/19 18:24 12/05/19 18:24 12/05/19 18:24 12/05/19 18:24 Procedures - Conscious Sedation Conscious sedation Time started: 18:18 Time completed: 18:28 Consent obtained: Yes Pt with a mild systemic disease.: P2. - ASA Classification. Airway Evaluation: Abnormal 3-3-2 rule Mallampati Classification: Class 2 Used during procedure: Suction available, IV access obtained, Pulse ox on pt., threat monitoring analyst on pt. Medications administered: Other - Propofol I personally performed/intraservice time: Sedation, Procedure, 30 min or less Complications: No - Joint Reduction/Fracture Care Right Shoulder Time completed: 18:20 Consent obtained: Yes Conscious sedation: Yes Pre-procedure NV exam: Yes Fracture: Closed Manipulation comment: Traction countertraction Post-procedure NV exam: Yes Post-reduction x-ray: Joint reduced Reduction attempts: 1 Complications: No Discharge - Discharge Clinical Impression: Recurrent dislocation, right shoulder Condition: Good Disposition: HOME, SELF-CARE Additional Instructions: Please make sure that you wear the sling as directed. Please follow-up with the outpatient orthopedic surgeon for the upcoming surgery as scheduled. Come back immediately for any swelling of the arm, increased pain, weakness or numbness, discoloration of the arm, or any other acute problems.
--- NOTE | 2019-12-05 17:47 | RADIOLOGY REPORT (SQ) ---
EXAM DESCRIPTION: SHOULDER RIGHT 2 OR MORE VIEWS IMAGES COMPLETED DATE/TIME: 12/05/2019 5:35 pm REASON FOR STUDY: MP; portable; right shoulder COMPARISON: None. NUMBER OF VIEWS: Two views. TECHNIQUE: Frontal and lateral images acquired of the right shoulder. LIMITATIONS: None. FINDINGS: Images of the right shoulder show with anterior dislocation. No fracture is seen. IMPRESSION: Anterior dislocation of the right shoulder. TECHNICAL DOCUMENTATION: JOB ID: [id number] 2010 [employer]- All Rights Reserved Reading location - IP/workstation name: [email or web address]
[2019-12-05 18:58] VITALS: BP 118/70
--- NOTE | 2019-12-05 19:09 | RADIOLOGY REPORT (SQ) ---
EXAM DESCRIPTION: SHOULDER RIGHT 2 OR MORE VIEWS IMAGES COMPLETED DATE/TIME: 12/05/2019 6:33 pm REASON FOR STUDY: Post reduction COMPARISON: None. NUMBER OF VIEWS: Two views. TECHNIQUE: Frontal and lateral images acquired of the right shoulder. LIMITATIONS: None. FINDINGS: Postreduction images show that the dislocation has been reduced. No fracture is seen. IMPRESSION: Successful reduction of anterior dislocation. TECHNICAL DOCUMENTATION: JOB ID: [id number] 2010 [employer]- All Rights Reserved Reading location - IP/workstation name: [email or web address]
== END 2019-12-05 18:53 | disposition home or self-care (01) ==
LOC: ER 17:00
DX: M24.411 Recurrent dislocation, right shoulder (principal); X50.9XXA Other and unspecified overexertion or strenuous movements or postures, initial encounter; F17.200 Nicotine dependence, unspecified, uncomplicated; I10 Essential (primary) hypertension; J44.9 Chronic obstructive pulmonary disease, unspecified; Z79.899 Other long term (current) drug therapy
CPT/HCPCS: 99283; 99152; 73030; 23650; J2704

== ENCOUNTER 2019-12-06 19:37 | Emergency (ER) | payer MEDICARE, OTHER ==
--- NOTE | 2019-12-06 21:02 | RADIOLOGY REPORT (SQ) ---
EXAM DESCRIPTION: Right shoulder [facility]: XR SHOULDER 2 OR MORE VIEWS Views: 2 CLINICAL HISTORY: 64 years Male; pain dislocation; COMPARISON: 04/06/2020 FINDINGS: Right humeral head is anteriorly dislocated, similar to yesterday's exam at 1740 (which was reduced on the later exam at 1837). No grossly displaced fractures. No a.c. subluxation. IMPRESSION: 1. Recurrent right shoulder dislocation
[2019-12-06] MEDS ORDERED: KETAMINE HCL INJ 500 MG/10 ML VIAL IV ONE ×2 (21:17→22:30)
[2019-12-06] MEDS ORDERED: PROPOFOL INJ 200 MG/20 ML VIAL IV ONE (21:18)
--- NOTE | 2019-12-06 21:50 | ER Document Report ---
ED General - General Chief Complaint: Shoulder Injury Stated Complaint: SHOULDER PAIN/POSSIBLE DISLOCATION Primary Care Provider: LAKESHIA KIRBY PA [Primary Care Provider] - Follow up as needed TRAVEL OUTSIDE OF THE [place] IN LAST 30 DAYS: No - HPI Notes: 64-year-old male history of heavy smoking, hypertension, recurrent right shoulder dislocations presents with right shoulder dislocation just prior to arrival. Patient states that he reached over his head to grab something out of a cabinet and felt a pop and sudden pain in his right shoulder similar to multiple prior dislocations. Patient has been seen frequently in the in this ED for same problem and has required moderate sedation to reduce shoulder. Patient denies any numbness, weakness, trauma, change in symptoms from prior dislocations, injury elsewhere, shortness of breath, COPD history - Related Data Allergies/Adverse Reactions: Penicillins Allergy (Verified 12/05/19 17:17) Past Medical History - General Information source: Patient - Social History Smoking Status: Current Every Day Smoker Frequency of alcohol use: Heavy Family History: Reviewed & Not Pertinent Patient has homicidal ideation: No - Past Medical History Cardiac Medical History: Reports: Hx Hypertension Pulmonary Medical History: Reports: Hx COPD Renal/ Medical History: Denies: Hx Peritoneal Dialysis GI Medical History: Reports: Hx Gastroesophageal Reflux Disease, Hx Ulcer - Associated with some lower GI bleeding Musculoskeletal Medical History: Reports Hx Arthritis - Immunizations Hx Diphtheria, Pertussis, Tetanus Vaccination: No Review of Systems - Review of Systems Notes: REVIEW OF SYSTEMS: CONSTITUTIONAL : Denies fever, chills, or sweats. EENT: Denies recent cold/sinus symptoms, denies throat pain CARDIOVASCULAR: Denies chest pain, FLACO RESPIRATORY: Denies cough, denies shortness of breath. GASTROINTESTINAL: Denies abdominal pain, nausea/vomiting. GENITOURINARY: Denies difficulty urinating, painful urination. MUSCULOSKELETAL: Denies neck pain, back pain. SKIN: Denies rash or skin lesions. HEMATOLOGIC : Denies easy bruising or bleeding. LYMPHATIC: Denies swollen, enlarged glands. NEUROLOGICAL: Denies headache, denies change in gait. PSYCHIATRIC: Denies anxiety or stress or depression. Physical Exam - Vital signs Vitals: Pulse Ox 85 L 12/06/19 19:41 - Notes Notes: PHYSICAL EXAMINATION: GENERAL: Elderly comfortable appearing man lying in stretcher in no acute distress HEAD: Atraumatic, normocephalic. EYES: Pupils equal round and appropriate constriction, sclera anicteric, conjunctiva are normal. ENT: nares patent, moist mucous membranes. NECK: Normal range of motion, supple without lymphadenopathy LUNGS: Normal respiratory rate and effort, good air movement, diffuse expiratory wheezing HEART: Regular rate and rhythm without murmurs ABDOMEN: Soft, nontender, no guarding, no masses, no CVAT EXTREMITIES: Bilateral radial pulses 2+, normal distal strength and sensation and axillary nerve distribution sensation in bilateral upper extremities, no spinal tenderness, right shoulder deformity with palpable head of humerus NEUROLOGICAL: Awake, alert, conversing appropriately, moves all extremities spontaneously. PSYCH: Normal mood, normal affect. SKIN: Warm, Dry, normal turgor, no rashes or lesions noted. Course - Re-evaluation Re-evalutation: 12/06/19 21:49 Atraumatic right shoulder deformity likely recurrent dislocation confirmed by x- ray in the ED. No neurologic deficits. Attempted dislocation by scapular massage and medial scapular pressure which was unsuccessful, will attempt reduction with moderate sedation using ketamine and propofol. Patient consented before moderate sedation and reduction. Patient scheduled for rotator cuff surgery next month. Patient with asymptomatic wheezing on exam, likely underlying COPD that has not yet diagnosed or cause patient any problems. I spoke to patient at length about smoking cessation. 12/06/19 23:12 Patient's dislocation was reduced successfully without difficulty under ketamine sedation and placement was confirmed with postreduction x-ray. Patient remained neurovascularly intact before and after procedure. Patient observed after moderate sedation and is now back to baseline mental status and has no complaints and no pain. Patient ready for discharge with Ortho follow-up. Patient given return to ED precautions which he demonstrate understanding of. - Vital Signs Vital signs: Temp Pulse Resp BP Pulse Ox 87 17 116/68 97 12/06/19 22:53 12/07/19 00:31 12/07/19 00:31 12/07/19 00:31 Procedures - Conscious Sedation Conscious sedation Time started: 23:00 - 12/06/19 Consent obtained: Yes Indication: shoulder dislocation reduction Pt with a mild systemic disease.: P2. - ASA Classification. Airway Evaluation: Obese Used during procedure: Suction available, IV access obtained, Pulse ox on pt., pharmacy laboratory technician on pt. Medications administered: Ketamine Reversal agents: None I personally performed/intraservice time: Sedation, Procedure, 30 min or less Complications: No - Joint Reduction/Fracture Care Right Shoulder Time completed: 23:00 - 12/06/19 Consent obtained: Yes Conscious sedation: Yes Pre-procedure NV exam: Yes Post-procedure NV exam: Yes Post-reduction x-ray: Joint reduced Reduction attempts: 1 Complications: No Discharge - Discharge Clinical Impression: Shoulder dislocation Qualifiers: Encounter type: initial encounter Laterality: right Qualified Code(s): S43.004A - Unspecified dislocation of right shoulder joint, initial encounter Disposition: HOME, SELF-CARE Additional Instructions: Shoulder Dislocation You've had a shoulder dislocation. Even after the shoulder is put back in place, careful care is needed to prevent further problems. As the shoulder dislocated, injury to the joint itself occurred. This must be allowed to heal. The usual treatment is a shoulder immobilizing sling. If this is your first dislocation, it must be left in place until the doctor allows you to remove it. This is important. Ice pack the shoulder frequently. One of the most important aspects of care for a shoulder dislocation is mobility exercises and strengthening exercises. You'll start these when it's safe to start moving the shoulder joint. Be sure to keep your follow-up appointments. If you develop numbness in the arm or hand, weakness of the hand muscles, arm swelling, or arm discoloration, call the doctor or return immediately. Call your orthopedic surgeon tomorrow to arrange closer follow-up. Return to ED immediately if you have any recurrence of the dislocation, weakness or numbness, trouble breathing, or any other worsening or alarming symptoms. You likely have COPD, lung disease from smoking, that has not yet bothered you. This is likely to get worse unless you stop smoking. Please discuss this with your primary doctor within 1 week. Quitting smoking will make you more likely to have a succ essful surgery when you have your shoulder repair. Prescriptions: Acetaminophen with Codeine [Tylenol #3 Tablet] 1 each PO Q6HP PRN #5 tablet PRN Reason: Referrals: LAKESHIA KIRBY PA [Primary Care Provider] - Follow up as needed
--- NOTE | 2019-12-06 23:05 | RADIOLOGY REPORT (SQ) ---
EXAM DESCRIPTION: XR SHOULDER 2 OR MORE VIEWS COMPLETED DATE/TME: 12/06/2019 22:18 CLINICAL HISTORY: 64 years, Male, post reduction COMPARISON: 12/06/2019 right shoulder at 8:36 PM NUMBER OF VIEWS: 2 TECHNIQUE: 2 view right shoulder LIMITATIONS: None. FINDINGS: Osteopenia. Interval reduction of the previously noted dislocation. No acute fracture. Degenerative changes of the glenohumeral and acromioclavicular joints. IMPRESSION: Interval reduction copyright 2010 [employer]- All Rights Reserved
[2019-12-07 01:13] VITALS: BP 116/68
== END 2019-12-07 01:13 | disposition home or self-care (01) ==
LOC: ER 19:37
DX: S43.004A Unspecified dislocation of right shoulder joint, initial encounter (principal); F17.200 Nicotine dependence, unspecified, uncomplicated; X58.XXXA Exposure to other specified factors, initial encounter; Y92.009 Unspecified place in unspecified non-institutional (private) residence as the place of occurrence of the external cause; Z88.0 Allergy status to penicillin; I10 Essential (primary) hypertension; J44.9 Chronic obstructive pulmonary disease, unspecified
CPT/HCPCS: 23650; 99283; 99152; 73030; J3490

== ENCOUNTER 2019-12-08 16:59 | Emergency (ER) | payer MEDICARE, OTHER ==
--- NOTE | 2019-12-08 17:51 | ER Document Report ---
ED Extremity Problem, Upper - General Chief Complaint: Shoulder Injury Stated Complaint: SHOULDER PAIN Time Seen by Provider: 12/08/19 17:28 Primary Care Provider: LAKESHIA KIRBY PA [Primary Care Provider] - Follow up as needed Mode of Arrival: Ambulatory Information source: Patient Notes: 64-year-old man presents to the emergency department with a history of disloc ation of the right shoulder. He has had multiple episodes of the right shoulder dislocation. States that his shoulder needs to be operated on, however the orthopedist is waiting for a medical clearance before he will schedule him for a procedure. Today he states he was stretching his arm rolled to the right and it popped out of joint. He was seen in the emergency department on of this week 12/06/2019 with a recurrent episode of right shoulder dislocation. He denies any other associated difficulties. TRAVEL OUTSIDE OF THE [place] IN LAST 30 DAYS: No - Related Data Allergies/Adverse Reactions: Penicillins Allergy (Verified 12/05/19 17:17) Past Medical History - Social History Smoking Status: Unknown if Ever Smoked Frequency of alcohol use: None Drug Abuse: None Family History: Reviewed & Not Pertinent - Past Medical History Cardiac Medical History: Reports: Hx Hypertension Pulmonary Medical History: Reports: Hx COPD Renal/ Medical History: Denies: Hx Peritoneal Dialysis GI Medical History: Reports: Hx Gastroesophageal Reflux Disease, Hx Ulcer - As sociated with some lower GI bleeding Musculoskeletal Medical History: Reports Hx Arthritis - Immunizations Hx Diphtheria, Pertussis, Tetanus Vaccination: No Review of Systems - Review of Systems Notes: Constitutional: Negative for fever. HENT: Negative for sore throat. Eyes: Negative for visual changes. Cardiovascular: Negative for chest pain. Respiratory: Negative for shortness of breath. Gastrointestinal: Negative for abdominal pain, vomiting or diarrhea. Genitourinary: Negative for dysuria. Musculoskeletal: + Right shoulder pain Skin: Negative for rash. Neurological: Negative for headaches, weakness or numbness. 10 point ROS negative except as marked above and in HPI. Physical Exam - Vital signs Vitals: Temp 97.5 F 12/08/19 17:07 - Notes Notes: PHYSICAL EXAMINATION: Physical Exam: General: Well-nourished well-developed 64-year-old man with complaint of right shoulder pain. HEENT: NC/AT, pupils equal round and reactive to light, MM moist,nares clear, oropharynx clear, airway patent Neck: supple, no adenopathy, no masses. Good range of motion Lungs: clear, no wheezing, no rales no rhonchi CVS: Regular rate and rhythm no murmur gallop or rub Abdomen: Soft, active, nontender, no masses, no hepatosplenomegaly Ext: Right shoulder with step-off noted and findings compatible with anterior dislocation of the shoulder. Tenderness with movement. Neuro: Alert and responsive, moving all 4 extremities on command, cranial nerves intact, no focal findings Skin: Intact no open lesions, no rash Course - Re-evaluation Re-evalutation: 12/08/19 19:01 Patient was given 20 g of etomidate for conscious sedation, the right shoulder was externally rotated and raise up above his head and popped back into place. A shoulder immobilizer was placed. Patient is told that the shoulder immobilizer needs to stay on until he can see his orthopedist regarding possible repair of the shoulder. - Vital Signs Vital signs: Temp Pulse Resp BP Pulse Ox 97.5 F 92 19 152/90 H 99 12/08/19 17:10 12/08/19 17:10 12/08/19 18:51 12/08/19 18:51 12/08/19 18:51 - Diagnostic Test Radiology reviewed: Image reviewed, Reports reviewed Radiology results interpreted by me: 12/08/19 19:01 Xray of the right shoulder: Anterior dislocation of the right shoulder. Postreduction x-ray of the right shoulder: Reduction of the right shoulder anterior dislocation. No fracture seen. Procedures - Conscious Sedation Conscious sedation Time started: 18:45 Time completed: 19:00 Consent obtained: Yes Indication: Anterior dislocation of the right shoulder. Last meal: This afternoon approximately 3 hours prior to arrival Emergent conditions applies.: E. - ASA Classification Airway Evaluation: Normal anatomy Mallampati Classification: Class 1 Used during procedure: Suction available, IV access obtained, Pulse ox on pt., desk monitor on pt. Medications administered: Etomidate - 20 milligrams IV Reversal agents: None I personally performed/intraservice time: 30 min or less Complications: No - Joint Reduction/Fracture Care Right Shoulder Time completed: 19:00 Consent obtained: Yes Conscious sedation: Yes Pre-procedure NV exam: Yes Manipulation comment: Right shoulder, externally rotated and raised above his head with the reduc Post-procedure NV exam: Yes Post-reduction x-ray: Joint reduced Reduction attempts: 1 Complications: No Discharge - Discharge Clinical Impression: Recurrent dislocation, right shoulder Condition: Good Disposition: HOME, SELF-CARE Instructions: Shoulder Dislocation ([facility]), Sling as Treatment ([facility]) Additional Instructions: You were seen in the emergency department ken with a dislocation of the right shoulder. Please wear the sling and swath, please follow-up with orthopedist as soon as possible for a repair procedure. You may use ibuprofen and Tylenol along with your pain medications if needed. HOME CARE INSTRUCTIONS & INFORMATION: Thank you for choosing us for your medical needs. We hope you're satisfied with the care you received. After you leave, you must properly care for your problem and, at the same time, observe its progress. Any condition can change. Some illnesses can change rapidly over hours or days. If your condition worsens, return to the Emergency Department or see your physician promptly. ABOUT YOUR X-RAYS AND EKG'S: If you had an EKG or X-rays taken, they have been read by the Emergency Physician. The X-rays and EKG's will also be read by a Radiologist or Electromechanisms Design Drafter within 24 hours. If discrepancies are noted, you will be notified by telephone. Please be certain the ED has a correct telephone number & address where you can be reached. Also, realize that some fractures or abnormalities do not show up on initial X-rays. If your symptoms continue, see your physician. ABOUT YOUR LABORATORY TEST: If you had laboratory tests, the results have been reviewed by the Emergency Physician. Some test results (for example cultures) may not be available for several days. You will be contacted if any test result shows you need additional treatment. Please be certain the ED has a correct telephone number and address where you can be reached. ABOUT YOUR MEDICATIONS: You will receive instructions on how to take your medicine on the prescription label you receive. Additional information may be provided by the Pharmacy. If you have questions afterwards, call the ED for clarification or further instructions. Some prescribed medications may cause drowsiness. Do not perform tasks such as driving a car or operating machinery without consulting your Pharmacist. If you feel you need a refill of pain medication, your condition will need re-evaluation. Please do not call for a refill of any medication. ABOUT YOUR SIGNATURE: Signature of this document acknowledges to followin. Understanding that you received emergency treatment and that you may be released before al medical problems are known or treated. Please be certain the ED has a correct phone number & address where you can be reached. 2. Acknowledgement that you will arrange for follow-up care as recommended. 3. Authorization for the Emergency Physician to provide information to your follow-up Physician in order to maximize your care. AT ANY TIME, IF YOUR SYMPTOMS CHANGE SIGNIFICANTLY OR WORSEN OR YOU DEVELOP NEW SYMPTOMS, RETURN TO THE EMERGENCY DEPARTMENT IMMEDIATELY FOR RE-EVALUATION. OUR GOAL IS TO PROVIDE EXCELLENT MEDICAL CARE! WE HOPE THAT WE HAVE MET YOUR EXPECTATIONS DURING YOUR EMERGENCY DEPARTMENT VISIT AND THAT YOU FEEL YOU HAVE RECEIVED EXCELLENT CARE! Referrals: LAKESHIA KIRBY PA [Primary Care Provider] - Follow up as needed
[2019-12-08] MEDS ORDERED: ETOMIDATE INJ/PF 20 MG/10 ML SDV IV ONE (18:00)
--- NOTE | 2019-12-08 18:19 | RADIOLOGY REPORT (SQ) ---
EXAM DESCRIPTION: SHOULDER RIGHT 2 OR MORE VIEWS IMAGES COMPLETED DATE/TIME: 12/08/2019 5:04 pm REASON FOR STUDY: deformity. COMPARISON: 12/06/2019. NUMBER OF VIEWS: Three views. TECHNIQUE: Internal rotation, external rotation, and Y view images acquired of the right shoulder. LIMITATIONS: None. FINDINGS: MINERALIZATION: Osteopenia. BONES: There is new acute anterior inferior dislocation at the glenohumeral joint. No definite acute fracture or cortical disruption. JOINTS: Moderate osteoarthritis of the acromioclavicular joint. Anterior inferior dislocation at the glenohumeral joint. VISUALIZED LUNGS AND RIBS: No pneumothorax. No rib fracture. SOFT TISSUES: No radiopaque foreign body. OTHER: No other significant finding. IMPRESSION: Recurrent acute anterior inferior dislocation right glenohumeral joint. No definite fra cture. TECHNICAL DOCUMENTATION: JOB ID: [id number] 2010 [employer]- All Rights Reserved Reading location - IP/workstation name: [email or web address]
--- NOTE | 2019-12-08 18:53 | RADIOLOGY REPORT (SQ) ---
EXAM DESCRIPTION: SHOULDER RIGHT 1 VIEW IMAGES COMPLETED DATE/TIME: 12/08/2019 6:46 pm REASON FOR STUDY: post reduction COMPARISON: None. NUMBER OF VIEWS: One view TECHNIQUE: AP images acquired of the right shoulder. LIMITATIONS: None. FINDINGS: MINERALIZATION: Osteopenia. BONES: Reduction of previously noted dislocation. No obvious fracture. JOINTS: No dislocation. VISUALIZED LUNGS AND RIBS: No pneumothorax. No rib fracture. SOFT TISSUES: No radiopaque foreign body. OTHER: No other significant finding. IMPRESSION: Reduction of previously noted dislocation without obvious fracture. TECHNICAL DOCUMENTATION: JOB ID: [id number] 2010 [employer]- All Rights Reserved Reading location - IP/workstation name: [email or web address]
[2019-12-08 19:40] VITALS: BP 145/74
== END 2019-12-08 20:00 | disposition home or self-care (01) ==
LOC: ER 16:59
DX: M24.411 Recurrent dislocation, right shoulder (principal); I10 Essential (primary) hypertension; J44.9 Chronic obstructive pulmonary disease, unspecified; Z88.0 Allergy status to penicillin
CPT/HCPCS: 99283; 99152; 73020; 73030; 23650; J3490

== ENCOUNTER 2019-12-26 22:08 | Emergency (ER) | payer MEDICARE, OTHER ==
--- NOTE | 2019-12-26 22:17 | ER Document Report ---
ED General - General Stated Complaint: POSSIBLE DISLOCATED ARM Time Seen by Provider: 12/26/19 22:16 Primary Care Provider: LAKESHIA KIRBY PA [Primary Care Provider] - Follow up as needed TRAVEL OUTSIDE OF THE [place] IN LAST 30 DAYS: No - HPI Notes: 64-year-old male presents with concerns for a shoulder dislocation. Patient reports he has had problems with his right shoulder for a while. He states "no thing at all to do it" in reference to these of his dislocations. He states that this evening he had his arm stretched out as he had just picked up a pulido and was attempting to put a chicken into the oven, he felt his older dislocate. He states that he tried to reduce it at home but was unsuccessful. He states that he does have some numbness to his hand. States that he is supposed to have follow-up with orthopedic surgery. - Related Data Allergies/Adverse Reactions: Penicillins Allergy (Verified 12/05/19 17:17) Past Medical History - Social History Smoking Status: Current Every Day Smoker Smoking Education Provided: Yes Frequency of alcohol use: Occasional Family History: Reviewed & Not Pertinent - Past Medical History Cardiac Medical History: Reports: Hx Hypertension Pulmonary Medical History: Reports: Hx COPD Renal/ Medical History: Denies: Hx Peritoneal Dialysis GI Medical History: Reports: Hx Gastroesophageal Reflux Disease, Hx Ulcer - Associated with some lower GI bleeding Musculoskeletal Medical History: Reports Hx Arthritis - Immunizations Hx Diphtheria, Pertussis, Tetanus Vaccination: No Review of Systems - Review of Systems Constitutional: No symptoms reported EENT: No symptoms reported Cardiovascular: No symptoms reported Respiratory: No symptoms reported Gastrointestinal: No symptoms reported Genitourinary: No symptoms reported Male Genitourinary: No symptoms reported Musculoskeletal: Joint pain Skin: No symptoms reported Hematologic/Lymphatic: No symptoms reported Neurological/Psychological: No symptoms reported Physical Exam - Vital signs Vitals: Temp 98.3 F 12/26/19 22:25 Interpretation: Normal - General General appearance: Appears well In distress: None - HEENT Head: Normocephalic, Atraumatic Eyes: Normal Pupils: PERRL - Respiratory Breath sounds: Normal - Cardiovascular Rhythm: Regular Heart sounds: Normal auscultation Pulses: Normal: Radial Normal capillary refill: Yes - Abdominal Tenderness: Nontender - Back Back: Nontender - Extremities Shoulder: Tender, Deformity, Limited ROM Notes: Full range of motion of right elbow and right hand. Strength is intact to right arm. - Neurological Cognition: Normal Orientation: AAOx4 Notes: Strength and sensation are intact to right upper extremity - Psychological Associated symptoms: Normal affect - Skin Skin Temperature: Warm Course - Re-evaluation Re-evalutation: 64-year-old male with history of recurrent right shoulder dislocations here for likely dislocation. He has decreased range of movement, deep sulcus. His right arm is overall neurovascularly intact. X-rays ordered. Anticipate he will need reduction. Low suspicion for fracture given mechanism. Additionally patient was counseled on smoking cessation. 12/26/19 23:57 Anterior dislocation present on x-ray 12/27/19 01:25 Postreduction x-ray demonstrates successful reduction 12/27/19 02:32 Patient sleeping, will arouse and answer questions but falls asleep again easily. We will continue to monitor in ED and discharge when he is awake - Vital Signs Vital signs: Temp Pulse Resp BP Pulse Ox 98.3 F 89 16 130/73 H 98 12/26/19 22:25 12/27/19 00:54 12/27/19 00:54 12/27/19 00:54 12/27/19 00:54 - Diagnostic Test Radiology reviewed: Image reviewed, Reports reviewed Procedures - Conscious Sedation Conscious sedation Time started: 00:45 Time completed: 01:00 Consent obtained: Yes Indication: need for shoulder redeuction Last meal: >4h Prior complications: Other - none Pt with a mild systemic disease.: P2. - ASA Classification. Airway Evaluation: Normal anatomy, Obese Mallampati Classification: Class 2 Used during procedure: Suction available, IV access obtained, Pulse ox on pt., sales ambassador on pt. Medications administered: Etomidate Reversal agents: None I personally performed/intraservice time: Sedation, 30 min or less Complications: No Notes: Attended by staff until he returned to his preprocedural baseline - Joint Reduction/Fracture Care Right Shoulder Time completed: 00:55 Consent obtained: Yes Conscious sedation: Yes Pre-procedure NV exam: Yes Post-procedure NV exam: Yes Post-reduction x-ray: Joint reduced Reduction attempts: 1 Complications: No Notes: 12/27/19 01:08 After conscious sedation was obtained, the right arm was externally rotated, traction was applied in a downward direction, the right arm was then raised above the head with an audible and palpable clunk. Palpation of the joint revealed humeral head and glenoid space. Symmetry was restored. A and swath was placed. Postreduction x-ray was obtained which demonstrated successful reduction. 12/27/19 01:25 Discharge - Discharge Clinical Impression: Shoulder dislocation Qualifiers: Encounter type: initial encounter Laterality: right Qualified Code(s): S43.004A - Unspecified dislocation of right shoulder joint, initial encounter Condition: Stable Disposition: HOME, SELF-CARE Instructions: Shoulder Dislocation ([facility]), Sling as Treatment ([facility]) Additional Instructions: Please keep your arm in the sling. Please follow-up with orthopedic surgery as planned. Return to the ED for any concerning symptoms. Referrals: LAKESHIA KIRBY PA [Primary Care Provider] - Follow up as needed
--- NOTE | 2019-12-26 23:09 | RADIOLOGY REPORT (SQ) ---
CLINICAL INDICATION: dislocation. . TECHNIQUE: 2 view(s) were obtained of the right shoulder. COMPARISON: None. FINDINGS: No acute displaced fracture is identified of the shoulder. Anterior inferior dislocation. Osteoarthritis. Chronic changes right lung. IMPRESSION: Anterior-inferior dislocation.
[2019-12-26] MEDS ORDERED: ETOMIDATE INJ/PF 20 MG/10 ML SDV IV ONE (23:23)
--- NOTE | 2019-12-27 01:19 | RADIOLOGY REPORT (SQ) ---
Right shoulder x-ray single view on 12/27/2019 at 1:01 AM CLINICAL INDICATION: Post reduction COMPARISON: 12/26/2019 and 12/08/2019 FINDINGS: There has been successful reduction of the prior anterior shoulder dislocation. The glenohumeral joint now appears well located. There is chronic widening of the AC joint in comparison with the prior study from 12/08/2019 consistent with either prior surgical resection of portion of the distal clavicle or chronic AC joint separation. No gross fracture is noted on limited single view exam. IMPRESSION: Successful reduction of the prior anterior shoulder dislocation.
[2019-12-27 03:07] VITALS: BP 123/74
== END 2019-12-27 03:34 | disposition home or self-care (01) ==
LOC: ER 22:08
PROC: 0RSJXZZ Reposition Right Shoulder Joint, External Approach (ICD-10-PCS; principal; 2019-12-26)
DX: S43.004A Unspecified dislocation of right shoulder joint, initial encounter (principal); R20.0 Anesthesia of skin; X50.9XXA Other and unspecified overexertion or strenuous movements or postures, initial encounter; Z88.0 Allergy status to penicillin; F17.200 Nicotine dependence, unspecified, uncomplicated; I10 Essential (primary) hypertension; J44.9 Chronic obstructive pulmonary disease, unspecified
CPT/HCPCS: 99285; 99152; 82962; 73030 ×2; 23650; J3490

== ENCOUNTER 2020-01-23 19:45 | Emergency (ER) | payer MEDICARE, OTHER ==
[2020-01-23] MEDS ORDERED: PROPOFOL INJ 200 MG/20 ML VIAL IV ONE (21:24)
[2020-01-23] MEDS ORDERED: KETAMINE HCL INJ 500 MG/10 ML VIAL IV ONE (21:24)
--- NOTE | 2020-01-23 21:26 | RADIOLOGY REPORT (SQ) ---
2 VIEWS RIGHT SHOULDER HISTORY: Shoulder pain. COMPARISON: None. FINDINGS: There is anterior dislocation of the humeral head with respect to the glenoid. No definite fracture fragment is seen. There is mild surrounding soft tissue swelling. Generalized osteopenia is present. IMPRESSION: Anterior glenohumeral dislocation.
--- NOTE | 2020-01-23 22:34 | ER Document Report ---
ED General - General Chief Complaint: Shoulder Injury Stated Complaint: RIGHT ARM INJURY Time Seen by Provider: 01/23/20 20:20 Primary Care Provider: LAKESHIA KIRBY PA [Primary Care Provider] - Follow up as needed Notes: 64-year-old male history of smoking, COPD, hypertension, recurrent right shoulder dislocation reduced in this ED many times presents with right shoulder dislocation. Patient says that he was leaning over to take something at that elevated and felt a pop and sudden pain in his shoulder. Patient denies any trauma, weakness, numbness, pain elsewhere, anesthesia complications TRAVEL OUTSIDE OF THE [place] IN LAST 30 DAYS: No - Related Data Allergies/Adverse Reactions: Penicillins Allergy (Verified 12/05/19 17:17) Past Medical History - General Information source: Patient, [facility] Records - Social History Smoking Status: Current Every Day Smoker Frequency of alcohol use: Heavy Drug Abuse: None Family History: Reviewed & Not Pertinent Patient has homicidal ideation: No - Past Medical History Cardiac Medical History: Reports: Hx Hypertension Pulmonary Medical History: Reports: Hx COPD Renal/ Medical History: Denies: Hx Peritoneal Dialysis GI Medical History: Reports: Hx Gastroesophageal Reflux Disease, Hx Ulcer - Associated with some lower GI bleeding Musculoskeletal Medical History: Reports Hx Arthritis - Immunizations Hx Diphtheria, Pertussis, Tetanus Vaccination: No Review of Systems - Review of Systems Notes: REVIEW OF SYSTEMS: CONSTITUTIONAL : Denies fever, chills, or sweats. EENT: Denies recent cold/sinus symptoms, denies throat pain CARDIOVASCULAR: Denies chest pain, FLACO RESPIRATORY: Denies cough, denies shortness of breath. GASTROINTESTINAL: Denies abdominal pain, nausea/vomiting. GENITOURINARY: Denies difficulty urinating, painful urination. MUSCULOSKELETAL: Denies neck pain, back pain. SKIN: Denies rash or skin lesions. HEMATOLOGIC : Denies easy bruising or bleeding. LYMPHATIC: Denies swollen, enlarged glands. NEUROLOGICAL: Denies headache, denies change in gait. PSYCHIATRIC: Denies anxiety or stress or depression. Physical Exam - Vital signs Vitals: Resp 17 01/23/20 20:24 - Notes Notes: PHYSICAL EXAMINATION: GENERAL: Well-nourished middle-aged man appearing older than stated age uncomfortable from right shoulder pain but in no acute distress HEAD: Atraumatic, normocephalic. EYES: Pupils equal round and appropriate constriction, sclera anicteric, conjunctiva are normal. ENT: nares patent, moist mucous membranes. NECK: Normal range of motion, supple without lymphadenopathy LUNGS: Breath sounds clear to auscultation bilaterally and equal. No wheezes rales or rhonchi. Normal respiratory rate and effort HEART: Regular rate and rhythm without murmurs ABDOMEN: Soft, nontender, no guarding, no masses, no CVAT EXTREMITIES: Bilateral DP pulses 2+, left shoulder within normal limits, right shoulder with deformity at glenohumeral joint, skin intact, axillary sensation intact, 5 out of 5 distal strength and sensation NEUROLOGICAL: Awake, alert, conversing appropriately, moves all extremities spontaneously. PSYCH: Normal mood, normal affect. SKIN: Warm, Dry, normal turgor, no rashes or lesions noted. Course - Re-evaluation Re-evalutation: 01/24/20 00:24 Patient presents with atraumatic recurrent right shoulder dislocation, neurovascularly intact, no other complaints, patient with history of COPD and very mildly hypoxic but this is consistent with patient's baseline and that he has no respiratory symptoms. Patient appropriate for moderate sedation in ED. I administered sedation with ketamine and propofol and was able to reduce shoulder successfully with normal postreduction neurovascular exam with normal axillary sensation. Patient placed in sling, awaiting clearance from conscious sedation for discharge. - Vital Signs Vital signs: Temp Pulse Resp BP Pulse Ox 98.6 F 14 136/66 H 94 01/23/20 20:25 01/23/20 20:25 01/23/20 20:25 01/23/20 20:25 Procedures - Conscious Sedation Conscious sedation Time started: : - 01/23/20 Time completed: 01/23/20 Consent obtained: Yes Indication: right shoulder disclocation reduction Pt with a mild systemic disease.: P2. - ASA Classification. Mallampati Classification: Class 2 Used during procedure: Suction available, IV access obtained, Pulse ox on pt., application security developer on pt. Medications administered: Ketamine, Other - propofol Reversal agents: None I personally performed/intraservice time: Sedation, Procedure, 30 min or less Complications: No - Joint Reduction/Fracture Care Right Shoulder Time completed: : - 01/23/20 Consent obtained: Yes Conscious sedation: Yes Pre-procedure NV exam: Yes - normal Post-procedure NV exam: Yes - normal Post-reduction x-ray: Joint reduced Reduction attempts: 1 Complications: No Discharge - Discharge Clinical Impression: Recurrent dislocation, right shoulder Disposition: HOME, SELF-CARE Additional Instructions: Shoulder Dislocation You've had a shoulder dislocation. Even after the shoulder is put back in place, careful care is needed to prevent further problems. As the shoulder dislocated, injury to the joint itself occurred. This must be allowed to heal. The usual treatment is a shoulder immobilizing sling. If this is your first dislocation, it must be left in place until the doctor allows you to remove it. This is important. Ice pack the shoulder frequently. One of the most important aspects of care for a shoulder dislocation is mobility exercises and strengthening exercises. You'll start these when it's sa fe to start moving the shoulder joint. Be sure to keep your follow-up appointments. If you develop numbness in the arm or hand, weakness of the hand muscles, arm swelling, or arm discoloration, call the doctor or return immediately. Follow-up with orthopedic surgeon within 1 week. If you have any worsening pain, numbness, weakness, or any other worsening or alarming symptoms return to the emergency department immediately. Follow-up with your primary doctor within 1 week. Referrals: LAKESHIA KIRBY PA [Primary Care Provider] - Follow up as needed ALYSSA SUÁREZ MD [ACTIVE STAFF] - Follow up as needed
--- NOTE | 2020-01-23 23:15 | RADIOLOGY REPORT (SQ) ---
Right shoulder x-ray two views on 01/23/2020 at 10:57 PM Clinical indications: Postreduction COMPARISON: 01/23/2020 at 9:06 PM FINDINGS: There has been successful reduction of the prior anterior shoulder dislocation. The glenohumeral joint now is well located. Degenerative changes are noted in the glenohumeral joint. Degenerative changes are noted in the AC joint. The AC joint is well aligned. Humeral head is high riding suggesting chronic rotator cuff tear. No acute fracture is noted. IMPRESSION: Successful reduction of the prior anterior shoulder dislocation.
[2020-01-24 01:43] VITALS: BP 164/92
== END 2020-01-24 01:35 | disposition home or self-care (01) ==
LOC: ER 19:45
DX: M24.411 Recurrent dislocation, right shoulder (principal); F17.200 Nicotine dependence, unspecified, uncomplicated; J44.9 Chronic obstructive pulmonary disease, unspecified; I10 Essential (primary) hypertension; Z88.0 Allergy status to penicillin
CPT/HCPCS: 99285; 99152; 73030; 23650; J3490; J2704

== ENCOUNTER 2020-01-27 16:43 | Emergency (ER) | payer MEDICARE, OTHER ==
[2020-01-27] MEDS ORDERED: ETOMIDATE INJ/PF 20 MG/10 ML SDV IV ONE (17:21)
--- NOTE | 2020-01-27 17:31 | RADIOLOGY REPORT (SQ) ---
EXAM DESCRIPTION: SHOULDER RIGHT 2 OR MORE VIEWS IMAGES COMPLETED DATE/TIME: 01/27/2020 5:17 pm REASON FOR STUDY: deformity, bone tenderness COMPARISON: 01/23/2020 NUMBER OF VIEWS: Three views. TECHNIQUE: Internal rotation, external rotation, and Y view images acquired of the right shoulder. LIMITATIONS: None. FINDINGS: Recurrent anterior glenohumeral dislocation similar to 4 days prior. No fracture is ident ified. Glenohumeral joint arthropathy. IMPRESSION: Anterior glenohumeral dislocation. TECHNICAL DOCUMENTATION: JOB ID: [id number] 2010 [employer]- All Rights Reserved Reading location - IP/workstation name: [email or web address]
--- NOTE | 2020-01-27 18:20 | ER Document Report ---
Entered by GARY BAL SCRIBE 01/27/20 1713 Acting as scribe for:GURWINDER RAVI MD ED Extremity Problem, Upper - General Chief Complaint: Shoulder Pain Stated Complaint: RIGHT SHOULDER PAIN Time Seen by Provider: 01/27/20 16:56 Primary Care Provider: LAKESHIA KIRBY PA [Primary Care Provider] - Follow up as needed Information source: Patient Notes: This 64 year old male patient presents to the emergency department today with complaints of a right shoulder dislocation. This right shoulder has become dislocated numerous times and he is due to follow up with Ortho in [place] on January 31. He last had this shoulder reduced here four days ago. TRAVEL OUTSIDE OF THE [place] IN LAST 30 DAYS: No - Related Data Allergies/Adverse Reactions: Penicillins Allergy (Verified 12/05/19 17:17) Past Medical History - General Information source: Patient - Social History Smoking Status: Current Every Day Smoker Cigarette use (# per day): Yes - 1/2 ppd Frequency of alcohol use: None Drug Abuse: None Lives with: Family Family History: Reviewed & Not Pertinent - Past Medical History Cardiac Medical History: Reports: Hx Hypertension Pulmonary Medical History: Reports: Hx COPD GI Medical History: Reports: Hx Gastroesophageal Reflux Disease, Hx Ulcer - Associated with some lower GI bleeding Musculoskeletal Medical History: Reports Hx Arthritis Surgical Hx: Negative - Immunizations Hx Diphtheria, Pertussis, Tetanus Vaccination: No Review of Systems - Review of Systems Constitutional: No symptoms reported EENT: No symptoms reported Cardiovascular: No symptoms reported Respiratory: No symptoms reported Gastrointestinal: No symptoms reported Genitourinary: No symptoms reported Male Genitourinary: No symptoms reported Musculoskeletal: See HPI, Joint pain - RUE, Deformity - right shoulder Skin: No symptoms reported Hematologic/Lymphatic: No symptoms reported Neurological/Psychological: No symptoms reported -: Yes All other systems reviewed and negative Physical Exam - Vital signs Vitals: BP 124/74 01/27/20 16:45 - Notes Notes: Physical Exam: General: Alert, appears uncomfortable. HEENT: Normocephalic. Atraumatic. PERRL. Extraocular movements intact. Oropharynx clear. Neck: Supple. Non-tender. Respiratory: No respiratory distress. Clear and equal breath sounds bilaterally. Cardiovascular: Regular rate and rhythm. Abdominal: Normal Inspection. Non-tender. No distension. Normal Bowel Sounds. Back: No gross abnormalities. Extremities: Moves all four extremities. Upper extremities: Right shoulder deformity consistent with anterior dislocation. Good radial pulse. Normal distal sensation. Lower extremities: Normal inspection. No edema. Normal ROM. Neurological: Normal cognition. AAOx4. Normal speech. Psychological: Normal affect. Normal Mood. Skin: Warm. Dry. Normal color. Course - Re-evaluation Re-evalutation: 01/27/20 19:05 After the shoulder was reduced, the patient's right arm was put back into the sling that he came here wearing. It provides support and comfort and fits well. - Vital Signs Vital signs: Temp Pulse Resp BP Pulse Ox 86 18 139/78 H 99 01/27/20 18:38 01/27/20 18:40 01/27/20 18:40 01/27/20 18:40 - Diagnostic Test Radiology reviewed: Image reviewed, Reports reviewed - Right shoulder x-ray shows anterior dislocation. Postreduction x-rays show satisfactory reduction. Procedures - Conscious Sedation Conscious sedation Time completed: 18:20 Consent obtained: Yes Indication: Shoulder reduction Pt with a mild systemic disease.: P2. - ASA Classification. Mallampati Classification: Class 2 Used during procedure: Suction available, IV access obtained, Pulse ox on pt., school bus monitor on pt. Medications administered: Etomidate I personally performed/intraservice time: Sedation, Procedure, 30 min or less Complications: No Notes: After the patient was given etomidate and became drowsy, the shoulder was reduced by external rotation, abduction, upward traction at the elbow while pushing down on the shoulder. - Joint Reduction/Fracture Care Right Shoulder Time completed: 18:20 Consent obtained: Yes Conscious sedation: Yes Pre-procedure NV exam: Yes Post-procedure NV exam: Yes Post-reduction x-ray: Joint reduced Reduction attempts: 1 Complications: No Discharge - Discharge Clinical Impression: Recurrent dislocation, right shoulder Condition: Stable Disposition: HOME, SELF-CARE Additional Instructions: Shoulder Dislocation You've had a shoulder dislocation. Even after the shoulder is put back in place, careful care is needed to prevent further problems. As the shoulder dislocated, injury to the joint itself occurred. This must be allowed to heal. The usual treatment is a shoulder immobilizing sling. If this is your first dislocation, it must be left in place until the doctor allows you to remove it. This is important. Ice pack the shoulder frequently. One of the most important aspects of care for a shoulder dislocation is mobility exercises and strengthening exercises. You'll start these when it's safe to start moving the shoulder joint. Be sure to keep your follow-up appointments. If you develop numbness in the arm or hand, weakness of the hand muscles, arm swelling, or arm discoloration, call the doctor or return immediately. Use the sling to prevent movement at the shoulder. Use ice packs to the shoulder today. Take Tylenol for pain if needed. Follow-up with the orthopedic surgeon at your scheduled appointment. Referrals: LAKESHIA KIRBY PA [Primary Care Provider] - Follow up as needed I personally performed the services described in the documentation, reviewed and edited the documentation which was dictated to the scribe in my presence, and it accurately records my words and actions.
--- NOTE | 2020-01-27 18:37 | RADIOLOGY REPORT (SQ) ---
EXAM DESCRIPTION: SHOULDER RIGHT 1 VIEW IMAGES COMPLETED DATE/TIME: 01/27/2020 6:29 pm REASON FOR STUDY: Post reduction COMPARISON: Earlier same date. NUMBER OF VIEWS: One view. TECHNIQUE: Frontal images acquired of the right shoulder. LIMITATIONS: None. FINDINGS: Successful closed reduction. No fracture. IMPRESSION: Successful closed reduction. TECHNICAL DOCUMENTATION: JOB ID: [id number] 2010 [employer]- All Rights Reserved Reading location - IP/workstation name: [email or web address]
[2020-01-27 18:42] VITALS: BP 139/78
== END 2020-01-27 18:52 | disposition home or self-care (01) ==
LOC: ER 16:43
DX: M24.411 Recurrent dislocation, right shoulder (principal); M25.511 Pain in right shoulder; F17.210 Nicotine dependence, cigarettes, uncomplicated; Z88.0 Allergy status to penicillin
CPT/HCPCS: 99285; 99152; 73020; 73030; 23650; J3490

== ENCOUNTER 2020-02-19 20:13 | Emergency (ER) | payer MEDICARE ==
--- NOTE | 2020-02-19 22:01 | ER Document Report ---
ED Medical Screen (RME) - General Chief Complaint: Shoulder Injury Stated Complaint: SHOULDER INJURY Time Seen by Provider: 02/19/20 21:53 Primary Care Provider: LAKESHIA KIRBY PA [Primary Care Provider] - Follow up as needed Mode of Arrival: Wheelchair Information source: Patient Notes: 64-year-old male presented to ED for complaint of right shoulder dislocation. He states it does happen frequently. He states he went to the orthopedic to try to get surgery on the shoulder and his potassium was too high so they would not do it. He states he has been to the kidney doctor multiple times and is supposed to get seen again on the and then the and if they clear him on the he should be going back to the orthopedic to try to get the surgery on the shoulder so the shoulder will quit dislocating. Patient is alert oriented respirations regular nonlabored speaking in full sentences. He states he did take some Tylenol before coming into the ED. He states he did come by EMS. He is wearing a shoulder immobilizer at this time. I have sent him to the x-ray to get a right shoulder x-ray. I have greeted and performed a rapid initial assessment of this patient. A comprehensive ED assessment and evaluation of the patient, analysis of test results and completion of medical decision making process will be conducted by an additional ED providers. TRAVEL OUTSIDE OF THE [place] IN LAST 30 DAYS: No - Related Data Allergies/Adverse Reactions: Penicillins Allergy (Verified 12/05/19 17:17) Past Medical History - Social History Frequency of alcohol use: beers-4 - Past Medical History Cardiac Medical History: Reports: Hx Hypertension Pulmonary Medical History: Reports: Hx COPD Renal/ Medical History: Denies: Hx Peritoneal Dialysis GI Medical History: Reports: Hx Gastroesophageal Reflux Disease, Hx Ulcer - Associated with some lower GI bleeding Musculoskeltal Medical History: Reports Hx Arthritis - Immunizations Hx Diphtheria, Pertussis, Tetanus Vaccination: No Physical Exam - Vital signs Vitals: Temp Pulse Resp BP Pulse Ox 97.6 F 74 16 123/81 95 02/19/20 20:20 02/19/20 20:20 02/19/20 20:20 02/19/20 20:20 02/19/20 20:20 Course - Vital Signs Vital signs: Temp Pulse Resp BP Pulse Ox 97.6 F 74 16 123/81 95 02/19/20 20:20 02/19/20 20:20 02/19/20 20:20 02/19/20 20:20 02/19/20 20:20 Doctor's Discharge - Discharge Referrals: LAKESHIA KIRBY PA [Primary Care Provider] - Follow up as needed
--- NOTE | 2020-02-19 22:39 | RADIOLOGY REPORT (SQ) ---
XR SHOULDER 2 OR MORE VIEWS CLINICAL STATEMENT: Dislocated shoulder states does frequently COMPARISON: 01/27/2020 FINDINGS: There is anterior dislocation of the humeral head. Mild glenohumeral degenerative changes. No evidence for acute fracture. IMPRESSION: Left shoulder anterior dislocation is noted.
[2020-02-20] MEDS ORDERED: MORPHINE SULFATE 10 MG/ML INJ IM ONE (00:32)
[2020-02-20] MEDS ORDERED: ONDANSETRON HCL INJ/PF 4 MG/2 ML SDV IM ONE (00:32)
--- NOTE | 2020-02-20 01:13 | ER Document Report ---
Entered by GARY BAL SCRIBE 02/19/20 [id number] Acting as scribe for:SARAH MOON DO ED Extremity Problem, Upper - General Chief Complaint: Shoulder Injury Stated Complaint: SHOULDER INJURY Time Seen by Provider: 02/19/20 21:53 Primary Care Provider: LAKESHIA KIRBY PA [Primary Care Provider] - Follow up as needed BEBA BRADEN DO [ACTIVE STAFF] - 02/20/20 Mode of Arrival: Wheelchair Information source: Patient Notes: This 64 year old male patient presents to the emergency department today with complaints of right shoulder dislocation. Patient has frequent right shoulder dislocations and follows with Ortho in [place] who is supposed to operate on the shoulder. Tonight he was reaching out for a pulido when the shoulder popped out. TRAVEL OUTSIDE OF THE [place] IN LAST 30 DAYS: No - Related Data Allergies/Adverse Reactions: Penicillins Allergy (Verified 12/05/19 17:17) Past Medical History - General Information source: Patient - Social History Smoking Status: Current Every Day Smoker Cigarette use (# per day): Yes - 1 ppd Frequency of alcohol use: beers-4 Lives with: Family Family History: Reviewed & Not Pertinent - Past Medical History Cardiac Medical History: Reports: Hx Hypertension Pulmonary Medical History: Reports: Hx COPD GI Medical History: Reports: Hx Gastroesophageal Reflux Disease, Hx Ulcer - Associated with some lower GI bleeding Musculoskeletal Medical History: Reports Hx Arthritis Surgical Hx: Negative - Immunizations Hx Diphtheria, Pertussis, Tetanus Vaccination: No Review of Systems - Review of Systems Constitutional: No symptoms reported EENT: No symptoms reported Cardiovascular: No symptoms reported Respiratory: No symptoms reported Gastrointestinal: No symptoms reported Genitourinary: No symptoms reported Male Genitourinary: No symptoms reported Musculoskeletal: See HPI, Joint pain - Right shoulder dislocation Skin: No symptoms reported Hematologic/Lymphatic: No symptoms reported Neurological/Psychological: No symptoms reported -: Yes All other systems reviewed and negative Physical Exam - Vital signs Vitals: Temp Pulse Resp BP Pulse Ox 97.6 F 74 16 123/81 95 02/19/20 20:20 02/19/20 20:20 02/19/20 20:20 02/19/20 20:20 02/19/20 20:20 - Notes Notes: Physical Exam: General: Alert, appears uncomfortable. HEENT: Normocephalic. Atraumatic. PERRL. Extraocular movements intact. Oropharynx clear. Neck: Supple. Non-tender. Respiratory: No respiratory distress. Clear and equal breath sounds bilaterally. Cardiovascular: Regular rate and rhythm. Abdominal: Obese. Non-tender. No distension. Normal Bowel Sounds. Back: No gross abnormalities. Extremities Upper extremities: Obvious deformity of RUE. Anterior inferior dislocation of right shoulder. Lower extremities: Normal inspection. No edema. Normal ROM. Neurological: Normal cognition. AAOx4. Normal speech. Psychological: Normal affect. Normal Mood. Skin: Warm. Dry. Normal color. Course - Re-evaluation Re-evalutation: 02/20/20 03:38 MDM 64 year old male with chronic right shoulder instability. Reaching for a pulido dislocated right shoulder. Attempted reduction without cons sedation and then needed conscious sedation. After etomidate the shoulder was reduced. Pt tolerated well without apparent complications. - Vital Signs Vital signs: Temp Pulse Resp BP Pulse Ox 97.6 F 74 12 149/90 H 100 02/19/20 20:20 02/19/20 20:20 02/20/20 03:28 02/20/20 03:31 02/20/20 03:31 - Diagnostic Test Radiology reviewed: Image reviewed, Reports reviewed Procedures - Conscious Sedation Conscious sedation Time started: 03:01 Time completed: 03:15 Consent obtained: Yes Indication: right shoulder dislocation Last meal: 1800 Emergent conditions applies.: E. - ASA Classification - II Pt with a mild systemic disease.: P2. - ASA Classification. Airway Evaluation: Large tongue, Neck immobility, Obese Mallampati Classification: Class 3 Used during procedure: Suction available, IV access obtained, Pulse ox on pt., event marketing coordinator on pt. Medications administered: Etomidate I personally performed/intraservice time: Sedation, Procedure, 30 min or less Complications: No Discharge - Discharge Clinical Impression: Right shoulder injury Qualifiers: Encounter type: subsequent encounter Qualified Code(s): S49.91XD - Unspecified injury of right shoulder and upper arm, subsequent encounter Shoulder joint instability Qualifiers: Laterality: right Qualified Code(s): M25.311 - Other instability, right shoulder Condition: Stable Disposition: HOME, SELF-CARE Instructions: Oral Narcotic Medication ([facility]), Post Sedation Instructions ([facility]), Shoulder Dislocation ([facility]), Sling as Treatment ([facility]) Additional Instructions: Use ice to your shoulder. Wear your sling. Please call ortho today for follow up. Return here for increased pain, other problems or other concerns. Take tylenol or ibuprofen for pain. Referrals: LAKESHIA KIRBY PA [Primary Care Provider] - Follow up as needed BEBA BRADEN DO [ACTIVE STAFF] - 02/20/20 I personally performed the services described in the documentation, reviewed and edited the documentation which was dictated to the scribe in my presence, and it accurately records my words and actions.
[2020-02-20] MEDS ORDERED: DIAZEPAM 5 MG TABLET PO ONE (01:25)
--- NOTE | 2020-02-20 01:39 | RADIOLOGY REPORT (SQ) ---
EXAM DESCRIPTION: XR SHOULDER 2 OR MORE VIEWS COMPLETED DATE/TME: 02/20/2020 00:33 CLINICAL HISTORY: 64 years Male, pain COMPARISON: 02/19/20 Findings: Complete anterior dislocation of the right glenohumeral joint. Bones, joints, and soft tissues of the RIGHT XR SHOULDER 2 VIEWS appear otherwise unremarkable. IMPRESSION: Complete anterior dislocation of the right glenohumeral joint.
[2020-02-20] MEDS ORDERED: ETOMIDATE INJ/PF 20 MG/10 ML SDV IV ONE (02:20)
--- NOTE | 2020-02-20 03:53 | RADIOLOGY REPORT (SQ) ---
EXAM DESCRIPTION: XR SHOULDER 2 OR MORE VIEWS COMPLETED DATE/TME: 02/20/2020 03:17 CLINICAL HISTORY: 64 years, Male, post reduction COMPARISON: 03/01/2020 at 1:09 AM NUMBER OF VIEWS: Two TECHNIQUE: Two views of the right shoulder LIMITATIONS: None. FINDINGS: There is been interval reduction of the anterior shoulder dislocation. No definite fracture is identified. Bones are demineralized. Mild soft tissue swelling surrounding the shoulder. IMPRESSION: Reduction of the anterior shoulder dislocation. copyright 2010 [employer]- All Rights Reserved
[2020-02-20 05:41] VITALS: BP 147/91
== END 2020-02-20 06:07 | disposition home or self-care (01) ==
LOC: ER 20:13
DX: M24.411 Recurrent dislocation, right shoulder (principal); M25.311 Other instability, right shoulder; F17.210 Nicotine dependence, cigarettes, uncomplicated; I10 Essential (primary) hypertension; J44.9 Chronic obstructive pulmonary disease, unspecified; Z88.0 Allergy status to penicillin
CPT/HCPCS: 99285; 96372; 99152; 73030 ×2; 23650; A9270; J2270; J2405; J3490

== ENCOUNTER 2020-02-22 17:48 | Emergency (ER) | payer MEDICARE ==
--- NOTE | 2020-02-22 18:55 | RADIOLOGY REPORT (SQ) ---
EXAM DESCRIPTION: SHOULDER RIGHT 2 OR MORE VIEWS IMAGES COMPLETED DATE/TIME: 02/22/2020 6:46 pm REASON FOR STUDY: poss. dislocation COMPARISON: 02/20/2020 EXAM PARAMETERS: NUMBER OF VIEWS: Three views. TECHNIQUE: AP,and oblique radiographic images acquired of the right shoulder LIMITATIONS: None. FINDINGS: MINERALIZATION: Normal. BONES: No acute fracture. Anterior- inferior glenohumeral Dislocation. No worrisome bone lesions. SOFT TISSUES: No radiopaque foreign body. OTHER: No other significant finding. IMPRESSION: Anterior- inferior glenohumeral Dislocation. TECHNICAL DOCUMENTATION: JOB ID: [id number] [place]-72 2010 [employer]- All Rights Reserved Reading location - IP/workstation name: [email or web address]
--- NOTE | 2020-02-22 20:10 | ER Document Report ---
ED Medical Screen (RME) - General Chief Complaint: Shoulder Pain Stated Complaint: SHOULDER PAIN Time Seen by Provider: 02/22/20 20:08 Primary Care Provider: LAKESHIA KIRBY PA [Primary Care Provider] - Follow up as needed Notes: 64-year-old male presented to ED for complaint of right shoulder dislocation. He states it does happen frequently. He states he went to the orthopedic to try to get surgery on the shoulder and his potassium was too high so they would not do it. He states he has been to the kidney doctor multiple times and is supposed to get seen again on the and then the and if they clear him on the he should be going back to the orthopedic to try to get the surgery on the shoulder so the shoulder will quit dislocating. Patient is alert oriented respirations regular nonlabored speaking in full sentences. He states this time all he did was fractured his arm and dislocated. He states he cannot keep his arm in the immobilizer all the time he was told that he needed to take out move his arm one small area shoulder will get stiffness muscles will get stiff and then he would be able to move leg at all. His shoulder is definitely dislocated again he has already had x-ray. He did he does need to get his shoulder reduced and then follow-up with orthopedic as scheduled. I have greeted and performed a rapid initial assessment of this patient. A comprehensive ED assessment and evaluation of the patient, analysis of test results and completion of medical decision making process will be conducted by an additional ED providers. TRAVEL OUTSIDE OF THE [place] IN LAST 30 DAYS: No - Related Data Allergies/Adverse Reactions: Penicillins Allergy (Verified 12/05/19 17:17) Past Medical History - Social History Chew tobacco use (# tins/day): No Frequency of alcohol use: Heavy Drug Abuse: None - Past Medical History Cardiac Medical History: Reports: Hx Hypertension Pulmonary Medical History: Reports: Hx COPD Renal/ Medical History: Denies: Hx Peritoneal Dialysis GI Medical History: Reports: Hx Gastroesophageal Reflux Disease, Hx Ulcer - Associated with some lower GI bleeding Musculoskeltal Medical History: Reports Hx Arthritis - Immunizations Hx Diphtheria, Pertussis, Tetanus Vaccination: No Physical Exam - Vital signs Vitals: Temp Pulse Resp BP Pulse Ox 97.5 F 77 16 121/64 92 02/22/20 18:10 02/22/20 18:10 02/22/20 18:10 02/22/20 18:10 02/22/20 18:10 Course - Vital Signs Vital signs: Temp Pulse Resp BP Pulse Ox 97.5 F 77 16 121/64 92 02/22/20 18:10 02/22/20 18:10 02/22/20 18:10 02/22/20 18:10 02/22/20 18:10 Doctor's Discharge - Discharge Referrals: LAKESHIA KIRBY PA [Primary Care Provider] - Follow up as needed
[2020-02-22] MEDS ORDERED: HYDROMORPHONE HCL INJ/PF 2 MG/ML AMPULE IV ONE (20:49)
[2020-02-22] MEDS ORDERED: ONDANSETRON HCL INJ/PF 4 MG/2 ML SDV IV ONE (20:50)
[2020-02-22] MEDS ORDERED: ETOMIDATE INJ/PF 20 MG/10 ML SDV IV ONE (20:51)
--- NOTE | 2020-02-22 20:52 | ER Document Report ---
ED General - General Chief Complaint: Shoulder Pain Stated Complaint: SHOULDER PAIN Time Seen by Provider: 02/22/20 20:08 Primary Care Provider: LAKESHIA KIRBY PA [Primary Care Provider] - Follow up as needed TRAVEL OUTSIDE OF THE [place] IN LAST 30 DAYS: No - HPI Context: This is a 64-year-old male with a history of repeated anterior right shoulder dislocations who presents to the emergency department complaining of right shoulder pain after trying to reach for a pot in a cabinet in his kitchen at home. Patient states he felt a pop followed by intense pain in his right shou lder and inability to move his right upper extremity. Patient is right-hand dominant. Patient rates the pain as a 5 out of 5 and states that it is constant and sharp. Patient states any type of movement or touch makes the pain worse and nothing alleviates the pain. Patient has been seen in this emergency department several times in the past for evaluation treatment of right anterior shoulder dislocation. Patient denies paresthesias in his right hand. Patient denies fever, chills, shortness of breath, chest pain. Patient denies history of prior COVID infection, known exposure to COVID positive persons or persons under investigation for COVID. Patient is supposed to follow-up with his orthopedist on the to discuss options in terms of surgical fixation of his right shoulder to keep it from repeatedly dislocating. Associated symptoms: Other - See HPI Exacerbated by: Other - See HPI Relieved by: Other - See HPI - Related Data Allergies/Adverse Reactions: Penicillins Allergy (Verified 12/05/19 17:17) Past Medical History - General Information source: Patient - Social History Smoking Status: Current Every Day Smoker Cigarette use (# per day): Yes - 10 Chew tobacco use (# tins/day): No Frequency of alcohol use: Heavy Drug Abuse: None Family History: Reviewed & Not Pertinent Patient has suicidal ideation: No Patient has homicidal ideation: No - Past Medical History Cardiac Medical History: Reports: Hx Hypertension Pulmonary Medical History: Reports: Hx COPD Renal/ Medical History: Denies: Hx Peritoneal Dialysis GI Medical History: Reports: Hx Gastroesophageal Reflux Disease, Hx Ulcer - Associated with some lower GI bleeding Musculoskeletal Medical History: Reports Hx Arthritis - Immunizations Hx Diphtheria, Pertussis, Tetanus Vaccination: No Review of Systems - Review of Systems Constitutional: No symptoms reported EENT: No symptoms reported Cardiovascular: No symptoms reported Respiratory: No symptoms reported Gastrointestinal: No symptoms reported Genitourinary: No symptoms reported Male Genitourinary: No symptoms reported Musculoskeletal: Joint pain Skin: No symptoms reported Hematologic/Lymphatic: No symptoms reported Neurological/Psychological: denies: Numbness -: Yes All other systems reviewed and negative Physical Exam - Vital signs Vitals: Temp Pulse Resp BP Pulse Ox 97.5 F 77 16 121/64 92 02/22/20 18:10 02/22/20 18:10 02/22/20 18:10 02/22/20 18:10 02/22/20 18:10 - Notes Notes: CONSTITUTIONAL [Vital signs reviewed, Patient appears comfortable, Alert and oriented X 3, Normal stature.] HEAD [Atraumatic, Normocephalic.] EYES [Eyes are normal to inspection, No discharge from eyes, Extraocular muscles intact, Sclera are normal, Conjunctiva are normal.] ENT Nose examination normal, Posterior pharynx normal, Mouth normal to inspection.] NECK [Normal ROM, No jugular venous distention, No meningeal signs, no carotid bruit.] RESPIRATORY CHEST [Chest is nontender, Breath sounds normal, No respiratory distress.] CARDIOVASCULAR [RRR, No murmurs, Normal S1 S2, No rub, No gallop.] ABDOMEN [Abdomen is nontender, No pulsatile masses, No other masses, Bowel sounds normal, No distension, No peritoneal signs, No hernias.] BACK [There is no CVA Tenderness, There is no tenderness to palpation, Normal inspection.] UPPER EXTREMITY Upper extremity exam is focused on patient's right upper extremity. Exam is significant for right-sided step-off and fullness in the right anterior deltoid region. Patient is not actively moving his right upper extremity secondary to pain. Patient is able to flex and extend all of his digits. Sensation is grossly intact. Cap refill is less than 2 seconds in the right hand. Radial pulses 2+ right wrist] LOWER EXTREMITY [Inspection normal, No cyanosis, No clubbing, No edema, No calf tenderness, 2+ femoral pulses.] NEURO [No focal motor deficits, No focal sensory deficits, Speech normal.] SKIN [Skin is warm, Skin is dry, Skin is normal color.] LYMPHATIC [No adenopathy in neck.] PSYCHIATRIC [Normal affect. ] Course - Re-evaluation Re-evalutation: 02/22/20 22:37 Results of ED MSE discussed with patient. Questionable Hill-Sachs deformity postreduction noted by the radiologist on his read. Patient was informed of the risk of this prior to the procedure and was made aware of its presence after the procedure. Patient states he believes the Hill-Sachs deformity was present prior to today's reduction. All questions were answered prior to discharge. Emergency signs and symptoms, reasons to return to the emergency department discussed with patient. States his arm feels better and also stated he is very appreciative of the care he was given in the ER. - Vital Signs Vital signs: Temp Pulse Resp BP Pulse Ox 97.5 F 77 14 191/98 H 91 L 02/22/20 18:10 02/22/20 18:10 02/22/20 22:01 02/22/20 22:01 02/22/20 22:01 - Diagnostic Test Radiology reviewed: Image reviewed - Prereduction and postreduction films visualized by this MD, Reports reviewed - Prereduction and postreduction reports read by this MD. Procedures - Conscious Sedation Conscious sedation Time started: 21:35 Time completed: 21:45 Consent obtained: Yes Indication: Closed right anterior shoulder dislocation Last meal: 1300 hrs. Pt with a mild systemic disease.: P2. - ASA Classification. Airway Evaluation: Large tongue, Obese Mallampati Classification: Class 3 Used during procedure: Suction available, IV access obtained, Pulse ox on pt., groundwater monitoring technician on pt. Medications administered: Etomidate, Other - Dilaudid Reversal agents: None I personally performed/intraservice time: Sedation, 30 min or less Complications: No - Immobilization Right Arm Time completed: 21:45 Pre-Proc Neuro Vasc Exam: Normal Immobilizer type: Sling Performed by: RN Post-Proc Neuro Vasc Exam: Normal Alignment checked and good: Yes - Joint Reduction/Fracture Care Right Shoulder Time completed: 21:40 - Reduction of right anterior shoulder dislocation Consent obtained: Yes Conscious sedation: Yes Pre-procedure NV exam: Yes - Patient neurovascularly intact Manipulation comment: Traction countertraction Post-procedure NV exam: Yes - Patient neurovascularly intact Post-reduction x-ray: Joint reduced Reduction attempts: 1 Complications: No Discharge - Discharge Clinical Impression: Recurrent dislocation, right shoulder, Hill Sachs deformity, right Condition: Stable Disposition: HOME, SELF-CARE Additional Instructions: Be certain to keep your appointment with the orthopedist on February 25. I recommended to keep the right arm in the sling until you are seen on the . If you decide to move the arm and take it out of the sling, definitely avoid any movement of the arm above the level of your neck. Return to the Emergency Department without delay if any worse. HOME CARE INSTRUCTIONS & INFORMATION: Thank you for choosing us for your medical needs. We hope you're satisfied with the care you received. After you leave, you must properly care for your problem and, at the same time, observe its progress. Any condition can change. Some illnesses can change rapidly over hours or days. If your condition worsens, return to the Emergency Department or see your physician promptly. ABOUT YOUR X-RAYS AND EKG'S: If you had an EKG or X-rays taken, they have been read by the Emergency Physician. The X-rays and EKG's will also be read by a Radiologist or Internship within 24 hours. If discrepancies are noted, you will be notified by telephone. Please be certain the ED has a correct telephone number & address where you can be reached. Also, realize that some fractures or abnormalities do not show up on initial X-rays. If your symptoms continue, see your physician. ABOUT YOUR LABORATORY TEST: If you had laboratory tests, the results have been reviewed by the Emergency Physician. Some test results (for example cultures) may not be available for several days. You will be contacted if any test result shows you need additional treatment. Please be certain the ED has a correct telephone number and address where you can be reached. ABOUT YOUR MEDICATIONS: You will receive instructions on how to take your medicine on the prescription label you receive. Additional information may be provided by the Pharmacy. If you have questions afterwards, call the ED for clarification or further instructions. Some prescribed medications may cause drowsiness. Do not perform tasks such as driving a car or operating machinery without consulting your Pharmacist. If you feel you need a refill of pain medication, your condition will need re-evaluation. Please do not call for a refill of any medication. ABOUT YOUR SIGNATURE: Signature of this document acknowledges to followin. Understanding that you received emergency treatment and that you may be released before al medical problems are known or treated. Please be certain the ED has a correct phone number & address where you can be reached. 2. Acknowledgement that you will arrange for follow-up care as recommended. 3. Authorization for the Emergency Physician to provide information to your follow-up Physician in order to maximize your care. AT ANY TIME, IF YOUR SYMPTOMS CHANGE SIGNIFICANTLY OR WORSEN OR YOU DEVELOP NEW SYMPTOMS, RETURN TO THE EMERGENCY DEPARTMENT IMMEDIATELY FOR RE-EVALUATION. OUR GOAL IS TO PROVIDE EXCELLENT MEDICAL CARE! WE HOPE THAT WE HAVE MET YOUR EXPECTATIONS DURING YOUR EMERGENCY DEPARTMENT VISIT AND THAT YOU FEEL YOU HAVE RECEIVED EXCELLENT CARE! Shoulder Dislocation You've had a shoulder dislocation. Even after the shoulder is put back in place, careful care is needed to prevent further problems. As the shoulder dislocated, injury to the joint itself occurred. This must be allowed to heal. The usual treatment is a shoulder immobilizing sling. If this is your first dislocation, it must be left in place until the doctor allows you to remove it. This is important. Ice pack the shoulder frequently. One of the most important aspects of care for a shoulder dislocation is mobility exercises and strengthening exercises. You'll start these when it's safe to start moving the shoulder joint. Be sure to keep your follow-up appointments. If you develop numbness in the arm or hand, weakness of the hand muscles, arm swelling, or arm discoloration, call the doctor or return immediately. Referrals: LAKESHIA KIRBY PA [Primary Care Provider] - Follow up as needed
[2020-02-22] MEDS ORDERED: HYDROCODONE/ACETAMINOPHEN 5-325 MG (6 TAB/ER DISP) PO PRN (22:03)
--- NOTE | 2020-02-22 22:34 | RADIOLOGY REPORT (SQ) ---
EXAM DESCRIPTION: XR RIGHT SHOULDER 2 VIEWS COMPLETED DATE/TME: 02/22/2020 21:41 CLINICAL HISTORY: 64 years, Male, post reduction COMPARISON: X-ray right shoulder 02/22/2020 at 6:29 PM NUMBER OF VIEWS: TECHNIQUE: LIMITATIONS: None. FINDINGS: The prior study, the dislocated shoulder has been reduced. I believe there is a Hill-Sachs deformity involving the humeral head. There are degenerative changes involving the glenohumeral joint. IMPRESSION: The dislocated shoulder has been reduced. Other findings as described. copyright 2010 [employer]- All Rights Reserved
[2020-02-22 23:19] VITALS: BP 113/85
== END 2020-02-22 23:22 | disposition home or self-care (01) ==
LOC: ER 17:48
DX: M24.411 Recurrent dislocation, right shoulder (principal); I10 Essential (primary) hypertension; J44.9 Chronic obstructive pulmonary disease, unspecified; F17.210 Nicotine dependence, cigarettes, uncomplicated; Z88.0 Allergy status to penicillin
CPT/HCPCS: 99285; 99152; 96374; 73030; 96375; 23650; J1170; J2405; J3490; A9270

== ENCOUNTER 2020-02-25 20:41 | Emergency (ER) | payer MEDICARE ==
[2020-02-25] MEDS ORDERED: OXYCODONE-ACETAMINOPHEN 5-325 MG TABLET PO ONE ×2 (21:13→23:45)
--- NOTE | 2020-02-25 21:15 | ER Document Report ---
ED Medical Screen (RME) - General Stated Complaint: SHOULDER INJURY Time Seen by Provider: 02/25/20 21:12 Primary Care Provider: LAKESHIA KIRBY PA [Primary Care Provider] - Follow up as needed Mode of Arrival: Ambulatory Information source: Patient Notes: 64-year-old male with possible dislocated right shoulder. History of same in the past. General exam no acute distress musculoskeletal tenderness right shoulder Neurovascular intact right upper extremity I have greeted and performed a rapid initial assessment of this patient. A comprehensive ED assessment and evaluation of the patient, analysis of test results and completion of the medical decision making process will be conducted by additional ED providers. TRAVEL OUTSIDE OF THE [place] IN LAST 30 DAYS: No - Related Data Allergies/Adverse Reactions: Penicillins Allergy (Verified 12/05/19 17:17) Past Medical History - Past Medical History Cardiac Medical History: Reports: Hx Hypertension Pulmonary Medical History: Reports: Hx COPD Renal/ Medical History: Denies: Hx Peritoneal Dialysis GI Medical History: Reports: Hx Gastroesophageal Reflux Disease, Hx Ulcer - Associated with some lower GI bleeding Musculoskeltal Medical History: Reports Hx Arthritis - Immunizations Hx Diphtheria, Pertussis, Tetanus Vaccination: No Physical Exam - Vital signs Vitals: Temp Pulse Resp BP Pulse Ox 97.4 F 85 18 120/68 94 02/25/20 21:08 02/25/20 21:08 02/25/20 21:08 02/25/20 21:08 02/25/20 21:08 Course - Vital Signs Vital signs: Temp Pulse Resp BP Pulse Ox 97.4 F 85 18 120/68 94 02/25/20 21:08 02/25/20 21:08 02/25/20 21:08 02/25/20 21:08 02/25/20 21:08 Doctor's Discharge - Discharge Referrals: LAKESHIA KIRBY PA [Primary Care Provider] - Follow up as needed
--- NOTE | 2020-02-25 22:31 | RADIOLOGY REPORT (SQ) ---
EXAM DESCRIPTION: XR SHOULDER 2 OR MORE VIEWS COMPLETED DATE/TME: 02/25/2020 21:12 CLINICAL HISTORY: 64 years, Male, poss dislocate COMPARISON: 02/22/2020 right shoulder NUMBER OF VIEWS: 2 TECHNIQUE: 2 view right shoulder LIMITATIONS: None. FINDINGS: Osteopenia. Anterior inferior dislocation of the humeral head relative to the bony glenoid. Hill-Sachs deformity of the humerus is again noted. Degenerative changes of the glenohumeral and acromioclavicular joints. No evidence for acute fracture. IMPRESSION: Anterior inferior shoulder dislocation. copyright 2010 [employer]- All Rights Reserved
--- NOTE | 2020-02-25 23:49 | ER Document Report ---
ED Extremity Problem, Upper - General Chief Complaint: Arm Problem Stated Complaint: SHOULDER INJURY Time Seen by Provider: 02/25/20 21:12 Primary Care Provider: LAKESHIA KIRBY PA [Primary Care Provider] - Follow up as needed Mode of Arrival: Ambulatory TRAVEL OUTSIDE OF THE [place] IN LAST 30 DAYS: No - HPI Notes: 64-year-old male presents with concerns for right shoulder dislocation. He has a history of recurrent right shoulder dislocations. He states that this evening he was baking some fries, he opened the oven to start the fries and felt his sh oulder dislocate. He states that while sitting in the lobby, he was massaging his arm and rolled over in the wheelchair, he states that he felt a pop and believes his shoulder is back in. - Related Data Allergies/Adverse Reactions: Penicillins Allergy (Verified 12/05/19 17:17) Past Medical History - General Information source: Patient - Social History Smoking Status: Current Every Day Smoker Family History: Reviewed & Not Pertinent - Past Medical History Cardiac Medical History: Reports: Hx Hypertension Pulmonary Medical History: Reports: Hx COPD Renal/ Medical History: Denies: Hx Peritoneal Dialysis GI Medical History: Reports: Hx Gastroesophageal Reflux Disease, Hx Ulcer - Associated with some lower GI bleeding Musculoskeletal Medical History: Reports Hx Arthritis - Immunizations Hx Diphtheria, Pertussis, Tetanus Vaccination: No Review of Systems - Review of Systems Constitutional: No symptoms reported EENT: No symptoms reported Cardiovascular: No symptoms reported Respiratory: No symptoms reported Gastrointestinal: No symptoms reported Genitourinary: No symptoms reported Male Genitourinary: No symptoms reported Musculoskeletal: See HPI Skin: No symptoms reported Hematologic/Lymphatic: No symptoms reported Neurological/Psychological: No symptoms reported Physical Exam - Vital signs Vitals: Temp Pulse Resp BP Pulse Ox 97.4 F 85 18 120/68 94 02/25/20 21:08 02/25/20 21:08 02/25/20 21:08 02/25/20 21:08 02/25/20 21:08 - General General appearance: Appears well, Alert In distress: None - HEENT Head: Normocephalic, Atraumatic Extraocular movements intact: Yes Pupils: PERRL - Respiratory Breath sounds: Normal - Cardiovascular Rhythm: Regular - Abdominal Inspection: Obese - Extremities Notes: Patient able to flex and abduct right shoulder, can raise above his head, no tenderness, no crepitance - Neurological Neuro grossly intact: Yes Cognition: Normal Orientation: AAOx4 - Psychological Associated symptoms: Normal affect - Skin Skin Temperature: Warm Course - Re-evaluation Re-evalutation: 64-year-old male presents with concerns for right shoulder dislocation. History of this, he is not yet seen orthopedic surgery though this has been discussed many times at multiple ED visits. He believes that he has relocated his shoulder. On exam he does have intact range of motion to his shoulder, no deformity, no tenderness. Likely has self reduced. Repeat x-ray ordered to confirm. He is otherwise neurologically intact. 02/26/20 00:35 Repeat x-ray confirms shoulder reduction. Sling in place. Patient encouraged to please follow-up with orthopedics this has been discussed at multiple visits. Precautions given, stable time of discharge. - Vital Signs Vital signs: Temp Pulse Resp BP Pulse Ox 97.4 F 85 18 120/68 94 02/25/20 21:08 02/25/20 21:08 02/25/20 21:08 02/25/20 21:08 02/25/20 21:08 - Diagnostic Test Radiology reviewed: Image reviewed, Reports reviewed Discharge - Discharge Clinical Impression: Recurrent dislocation, right shoulder Disposition: HOME, SELF-CARE Instructions: Shoulder Dislocation ([facility]) Additional Instructions: Please follow up with orthopedics for surgery!!!!!!!!!!!!!!!!!!!!!!!!!!! Referrals: LAKESHIA KIRBY PA [Primary Care Provider] - Follow up as needed
--- NOTE | 2020-02-26 00:32 | RADIOLOGY REPORT (SQ) ---
EXAM: X-ray shoulder two views, right CLINICAL DATA: Status post reduction TECHNICAL DATA: Two x-ray views of the right shoulder were performed on 02/26/2020 at 12:03 AM. COMPARISONS: 02/25/2020 at 9:48 PM FINDINGS: Since the previous examination there has been interval reduction of the right shoulder dislocation. There is narrowing of the glenohumeral joint. There also appears to be narrowing of the subacromial space. The acromioclavicular joint appears intact. No lytic or sclerotic bone lesions are seen. Bone mineralization is diminished. No focal soft tissue abnormalities are identified. IMPRESSION: Satisfactory closed reduction of the right shoulder dislocation without definite acute fracture. There are degenerative changes of the shoulder joint.
[2020-02-26 00:58] VITALS: BP 136/64
== END 2020-02-26 00:58 | disposition home or self-care (01) ==
LOC: ER 20:41
DX: M24.411 Recurrent dislocation, right shoulder (principal); F17.200 Nicotine dependence, unspecified, uncomplicated; Z88.0 Allergy status to penicillin
CPT/HCPCS: 99283; 73030; A9270

== ENCOUNTER → 2020-03-06 | Outpatient (CLI) | payer MEDICARE ==
[2020-03-06 09:49] LABS: POTASSIUM 5.6 mmol/L (3.6-5.0)
[2020-03-06 10:43] LABS: URINE SODIUM 14 mmol/L (30-90)
[2020-03-06 11:06] LABS: OSMOLALITY,URINE 234 mOsm/kg (300-900)
== END ==
LOC: OD 08:18
PROVIDERS: ATTEND Physician Assistant Medical
DX: E87.1 Hypo-osmolality and hyponatremia (principal); E87.5 Hyperkalemia
CPT/HCPCS: 36415; 83930; 83935; 84132; 84295; 84300

== ENCOUNTER 2020-03-21 02:59 | Emergency (ER) | payer MEDICARE ==
--- NOTE | 2020-03-21 04:43 | RADIOLOGY REPORT (SQ) ---
EXAM DESCRIPTION: XR SHOULDER 2 OR MORE VIEWS COMPLETED DATE/TME: 03/21/2020 03:47 CLINICAL HISTORY: 64 years, Male, recurrent dislocation COMPARISON: 02/26/2020 NUMBER OF VIEWS: Two TECHNIQUE: Two views of the right shoulder LIMITATIONS: None. FINDINGS: There is an anterior shoulder dislocation. Bones are demineralized. No definite acute fracture is identified. Hill-Sachs deformity is likely present. AC joint is intact. Visualized portions of the lungs are clear. IMPRESSION: Anterior shoulder dislocation copyright 2010 [employer]- All Rights Reserved
[2020-03-21] MEDS ORDERED: ETOMIDATE INJ/PF 20 MG/10 ML SDV IV ONE ×4 (07:45→15:20)
[2020-03-21] MEDS ORDERED: FENTANYL CITRATE INJ/PF 100 MCG/2 ML AMPUL IV ONE (07:49)
[2020-03-21] MEDS ORDERED: NORMAL SALINE 250 ML IV ONE (07:52)
[2020-03-21 09:27] LABS: HEMATOCRIT 34.6 % (37.9-51.0); HEMOGLOBIN 11.8 g/dL (13.5-17.0); MEAN CORPUSCULAR HEMOGLOBIN 32.8 pg (27.0-33.4); MEAN CORPUSCULAR HGB CONC 34.2 g/dL (32.0-36.0); MEAN CORPUSCULAR VOLUME 96 fl (80-97); PLATELET COUNT 209 10^3/uL (150-450); RED BLOOD COUNT 3.61 10^6/uL (4.35-5.55); RED CELL DISTRIBUTION WIDTH 15.9 % (11.5-14.0); WHITE BLOOD COUNT 3.6 10^3/uL (4.0-10.5)
[2020-03-21 09:44] LABS: ABSOLUTE LYMPHOCYTES# (MANUAL) 0.7 10^3/uL (0.5-4.7); ABSOLUTE MONOCYTES # (MANUAL) 0.7 10^3/uL (0.1-1.4); BAND NEUTROPHILS % (MANUAL) 2 % (3-5); BASOPHILS % (MANUAL) 0 % (0-2); EOSINOPHILS % (MANUAL) 1 % (0-6); LYMPHOCYTES % (MANUAL) 18 % (13-45); MONOCYTES % (MANUAL) 19 % (3-13); SEGMENTED NEUTROPHILS % (MAN) 59 % (42-78); TOTAL CELLS COUNTED 100
[2020-03-21 09:47] LABS: ANISOCYTOSIS 1+; OVALOCYTES SLIGHT; PLATELET COMMENT ADEQUATE; POIKILOCYTOSIS SLIGHT; TARGET CELLS SLIGHT
[2020-03-21] MEDS ORDERED: KETAMINE HCL INJ 500 MG/10 ML VIAL IM ONE (10:15)
[2020-03-21 11:07] LABS: ALBUMIN 4.6 g/dL (3.5-5.0); ALKALINE PHOSPHATASE 128 U/L (38-126); ANION GAP 15 (5-19); ASPARTATE AMINO TRANSFERASE 47 U/L (17-59); BILIRUBIN,DIRECT 0.2 mg/dL (0.0-0.4); BILIRUBIN,TOTAL 0.7 mg/dL (0.2-1.3); BLOOD UREA NITROGEN 40 mg/dL (7-20); CARBON DIOXIDE 21 mmol/L (22-30); CHLORIDE 94 mmol/L (98-107); GLUCOSE 80 mg/dL (75-110); POTASSIUM 5.2 mmol/L (3.6-5.0); TOTAL PROTEIN 7.8 g/dL (6.3-8.2)
[2020-03-21] MEDS ORDERED: FENTANYL CITRATE INJ/PF 100 MCG/2 ML AMPUL IM ONE (12:17)
[2020-03-21] MEDS ORDERED: FENTANYL CITRATE INJ/PF 100 MCG/2 ML AMPUL IM STA (12:50)
--- NOTE | 2020-03-21 14:21 | RADIOLOGY REPORT (SQ) ---
EXAM DESCRIPTION: SHOULDER RIGHT 2 OR MORE VIEWS IMAGES COMPLETED DATE/TIME: 03/21/2020 2:05 pm REASON FOR STUDY: POST REDUCTION COMPARISON: 03/21/2020 NUMBER OF VIEWS: Two views. TECHNIQUE: Frontal and Y-view Images acquired of the right shoulder. LIMITATIONS: None. FINDINGS: Postreduction views reveal a satisfactory position and alignment of the humeral head with respect to the glenoid. No acute fracture identified. IMPRESSION: Satisfactory postreduction views TECHNICAL DOCUMENTATION: JOB ID: [id number] 2010 [employer]- All Rights Reserved Reading location - IP/workstation name: [email or web address]
--- NOTE | 2020-03-21 15:20 | ER Document Report ---
Entered by KARLEY SPAIN SCRIBE 03/21/20 0735 Acting as scribe for:KIARA HAMMOND MD ED Extremity Problem, Upper - General Chief Complaint: Shoulder Injury Stated Complaint: RIGHT ANTERIOR SHOULDER DISLOCATION Time Seen by Provider: 03/21/20 07:32 Primary Care Provider: KEV RAMIREZ PA-C [ALLIED HEALTH PROFESSIONAL] - Follow up as needed BEBA BRADEN DO [ACTIVE STAFF] - Follow up in 3-5 days Mode of Arrival: Medic Information source: Patient Notes: This 64 year old male patient with a history of recurrent right shoulder dislocations presents to the ED today via EMS with complaints of right shoulder pain. Patient states that around 0100 this morning, he lifted his right arm over his head to take off his shirt and dislocated his shoulder. Pain is 7-8/10 in severity at this time. He reports that he is supposed to have surgery, but it has been delayed because his "potassium is too high." He notes that his orthopedist is Dr. Powers. Denies any other complaints. TRAVEL OUTSIDE OF THE [place] IN LAST 30 DAYS: No - Related Data Allergies/Adverse Reactions: Penicillins Allergy (Verified 12/05/19 17:17) Past Medical History - General Information source: Patient, [facility] Records - Social History Smoking Status: Current Every Day Smoker Smoking Education Provided: No Family History: Reviewed & Not Pertinent Patient has suicidal ideation: No Patient has homicidal ideation: No - Past Medical History Cardiac Medical History: Reports: Hx Hypertension Pulmonary Medical History: Reports: Hx COPD GI Medical History: Reports: Hx Gastroesophageal Reflux Disease, Hx Ulcer - Associated with some lower GI bleeding Musculoskeletal Medical History: Reports Hx Arthritis - Immunizations Hx Diphtheria, Pertussis, Tetanus Vaccination: No Review of Systems - Review of Systems Constitutional: No symptoms reported EENT: No symptoms reported Cardiovascular: No symptoms reported Respiratory: No symptoms reported Gastrointestinal: No symptoms reported Genitourinary: No symptoms reported Male Genitourinary: No symptoms reported Musculoskeletal: See HPI, Joint pain Skin: No symptoms reported Hematologic/Lymphatic: No symptoms reported Neurological/Psychological: No symptoms reported -: Yes All other systems reviewed and negative Physical Exam - Vital signs Vitals: Temp Pulse Resp BP Pulse Ox 97.5 F 90 18 157/80 H 94 03/21/20 03:06 03/21/20 03:06 03/21/20 03:06 03/21/20 03:06 03/21/20 03:06 - General General appearance: Alert In distress: None - HEENT Head: Normocephalic, Atraumatic Eyes: Normal Pupils: PERRL Pharynx: Normal. No: Erythema, Exudate - Respiratory Respiratory status: No respiratory distress Chest status: Nontender Breath sounds: Wheezing Chest palpation: Normal - Cardiovascular Rhythm: Regular Heart sounds: Normal auscultation, S1 appreciated, S2 appreciated Murmur: No Friction rub: No Gallop: None auscultated - Abdominal Inspection: Normal Distension: No distension Bowel sounds: Normal Tenderness: Nontender - Abdomen soft Organomegaly: No organomegaly - Back Back: Normal, Nontender - Extremities General lower extremity: Normal inspection. No: Edema Shoulder: Tender - Tenderness to palpation over right anterior shoulder, Dislocation - Right Hand: Other - Distal pulse and sensation intact - Neurological Neuro grossly intact: Yes Orientation: AAOx4 Maciel Coma Scale Eye Opening: Spontaneous [place] Coma Scale Verbal: Oriented [place] Coma Scale Motor: Obeys Commands [place] Coma Scale Total: 15 - Psychological Associated symptoms: Normal affect, Normal mood - Skin Skin Temperature: Warm Skin Moisture: Dry Skin Color: Normal Course - Re-evaluation Re-evalutation: 03/23/20 12:55 Addendum notes based on exam yesterday. Patient with right anterior shoulder dislocation. Patient required conscious sedation procedural conscious sedation for closed reduction. See procedure note. - Vital Signs Vital signs: Temp Pulse Resp BP Pulse Ox 98.3 F 61 21 H 130/82 H 98 03/21/20 05:41 03/21/20 05:41 03/21/20 14:01 03/21/20 14:01 03/21/20 14:01 03/23/20 12:55 Vital signs stable - Laboratory Result Diagrams: 03/21/20 09:17 03/21/20 10:46 Laboratory results interpreted by me: 03/21/20 03/21/20 09:17 10:46 WBC 3.6 L RBC 3.61 L Hgb 11.8 L Hct 34.6 L RDW 15.9 H Band Neutrophils % 2 L Monocytes % (Manual) 19 H Sodium 130.2 L Potassium 5.2 H Chloride 94 L Carbon Dioxide 21 L BUN 40 H Creatinine 1.85 H Est GFR ( Amer) 45 L Est GFR (MDRD) Non-Af 37 L Alkaline Phosphatase 128 H Laboratories within normal limits sodium is 138 potassium 5.2 chloride 94 CO2 is 21 with a BUN of 40 and creatinine 1.8. Laboratory discloses that there is elevated creatinine consistent with renal failure. 03/23/20 13:00 - Diagnostic Test Radiology reviewed: Image reviewed, Reports reviewed Radiology results interpreted by me: 03/21/20 14:39 Shoulder X-Ray 03/21/20 00:00 IMPRESSION: Satisfactory postreduction views Shoulder X-Ray 03/21/20 03:47 IMPRESSION: Anterior shoulder dislocation copyright 2010 [employer]- All Rights Reserved 03/23/20 13:01 Shoulder x-ray shows an anterior right shoulder dislocation. Postprocedure right shoulder x-ray shows satisfactory factory postreduction. Procedures - Conscious Sedation Conscious sedation Time started: 13:45 Consent obtained: Yes Indication: Right anterior shoulder dislocation Prior complications: Procedural sedation Emergent conditions applies.: E. - ASA Classification Pt with a severe systemic disease.: P3. - ASA Classification. Airway Evaluation: Normal anatomy, Large tongue Mallampati Classification: Class 3 Used during procedure: Suction available, IV access obtained, Pulse ox on pt., nuclear monitoring technician on pt. Medications administered: Fentanyl, Etomidate Reversal agents: None I personally performed/intraservice time: Sedation, Procedure, 30 min or less Complications: No - Immobilization Right Anterior Shoulder Time completed: 14:00 Pre-Proc Neuro Vasc Exam: Normal Immobilizer type: Shoulder immobilizer Performed by: Provider assisted, RN Post-Proc Neuro Vasc Exam: Normal Alignment checked and good: Yes - Joint Reduction/Fracture Care Right Anterior Shoulder Time completed: 13:55 Consent obtained: Yes Conscious sedation: Yes Pre-procedure NV exam: Yes Post-procedure NV exam: Yes Post-reduction x-ray: Joint reduced, No fracture seen Reduction attempts: 2 Complications: No Discharge - Discharge Clinical Impression: Recurrent dislocation, right shoulder Condition: Stable Disposition: HOME, SELF-CARE Instructions: Pain Medication Injection ([facility]), Shoulder Dislocation ([facility]), Sling as Treatment ([facility]) Prescriptions: Tramadol HCl [Ultram 50 mg Tablet] 50 mg PO Q4HP PRN #12 tab PRN Reason: Referrals: KEV RAMIREZ PA-C [ALLIED HEALTH PROFESSIONAL] - Follow up as needed BEBA BRADEN, [ACTIVE STAFF] - Follow up in 3-5 days I personally performed the services described in the documentation, reviewed and edited the documentation which was dictated to the scribe in my presence, and it accurately records my words and actions.
[2020-03-21 15:28] VITALS: BP 130/82
== END 2020-03-21 15:21 | disposition home or self-care (01) ==
LOC: ER 02:59
DX: M24.411 Recurrent dislocation, right shoulder (principal)
CPT/HCPCS: 23650; 99285; 96372; 99152; 36415; 80307; 85025; 80053; 73030; J3010; J3490

== ENCOUNTER 2020-03-24 10:08 | Emergency (ER) | payer MEDICARE ==
[2020-03-24] MEDS ORDERED: LIDOCAINE 1.5%/EPINEPHRINE INJ-PF 30 ML SDV INJ ONE (10:51)
[2020-03-24] MEDS ORDERED: LIDOCAINE 1%/EPINEPHRINE INJ 20 ML VIAL ONE (11:02)
--- NOTE | 2020-03-24 11:21 | RADIOLOGY REPORT (SQ) ---
EXAM DESCRIPTION: SHOULDER RIGHT 2 OR MORE VIEWS IMAGES COMPLETED DATE/TIME: 03/24/2020 10:51 am REASON FOR STUDY: possible dislocation COMPARISON: Multiple since 02/20/2020 NUMBER OF VIEWS: Two views. TECHNIQUE: Internal rotation, and Y view images acquired of the right shoulder. LIMITATIONS: None. FINDINGS: Bones are osteopenic. Anterior right glenohumeral dislocation. [place]-Sachs deformity right humeral head. Bony spurring along the undersurface of the acromion and AC joint Right upper ribs, clavicle, scapula unremarkable IMPRESSION: Anterior right glenohumeral dislocation. [place]-Sachs deformity right humeral head. TECHNICAL DOCUMENTATION: JOB ID: [id number] 2010 [employer]- All Rights Reserved Reading location - IP/workstation name: [email or web address]
[2020-03-24] MEDS ORDERED: ETOMIDATE INJ/PF 20 MG/10 ML SDV IV ONE ×2 (11:26→13:43)
--- NOTE | 2020-03-24 11:28 | ER Document Report ---
ED Extremity Problem, Upper - General Chief Complaint: Shoulder Pain Stated Complaint: RIGHT SHOULDER PAIN Time Seen by Provider: 03/24/20 10:15 Primary Care Provider: ALYSSA SUÁREZ MD [ACTIVE STAFF] - Follow up in 3-5 days Mode of Arrival: Medic Information source: Patient TRAVEL OUTSIDE OF THE [place] IN LAST 30 DAYS: No - HPI Notes: Patient arrives complaining of right shoulder pain. This pain is constant. Severe. Is worse with movement better with rest. Does radiate down his right arm. He has a history of numerous visits here for shoulder reductions. States he has been referred to orthopedics but has been unable to follow-up. States this morning he was putting his shirt on when the shoulder became dislocated. - Related Data Allergies/Adverse Reactions: Penicillins Allergy (Verified 03/24/20 10:13) Past Medical History - General Information source: Patient - Social History Smoking Status: Current Every Day Smoker Chew tobacco use (# tins/day): No Frequency of alcohol use: Social Drug Abuse: None Family History: Reviewed & Not Pertinent Patient has homicidal ideation: No - Past Medical History Cardiac Medical History: Reports: Hx Hypertension Pulmonary Medical History: Reports: Hx COPD Renal/ Medical History: Denies: Hx Peritoneal Dialysis GI Medical History: Reports: Hx Gastroesophageal Reflux Disease, Hx Ulcer - Associated with some lower GI bleeding Musculoskeletal Medical History: Reports Hx Arthritis - Immunizations Hx Diphtheria, Pertussis, Tetanus Vaccination: No Review of Systems - Review of Systems Constitutional: denies: Chills, Fever Cardiovascular: denies: Chest pain, Palpitations Respiratory: denies: Cough, Short of breath -: Yes All other systems reviewed and negative Physical Exam - Vital signs Vitals: Temp 98.2 F 03/24/20 10:13 Interpretation: Normal - General General appearance: Appears well, Alert - HEENT Head: Normocephalic, Atraumatic Eyes: Normal Pupils: PERRL - Respiratory Respiratory status: No respiratory distress Chest status: Nontender Breath sounds: Normal Chest palpation: Normal - Cardiovascular Rhythm: Regular Heart sounds: Normal auscultation Murmur: No - Abdominal Inspection: Obese Distension: No distension Bowel sounds: Normal Tenderness: Nontender Organomegaly: No organomegaly - Back Back: Normal, Nontender - Extremities General upper extremity: Normal color, Normal temperature, Other - Right shoulder is held in adduction. He resists abduction. Patient is neurovascular intact in right upper extremity. A fullness can be palpated of the anterior shoulder joint consistent with dislocation. General lower extremity: Normal inspection, Nontender, Normal color, Normal ROM, Normal temperature, Normal weight bearing. No: Pavel's sign - Neurological Neuro grossly intact: Yes Cognition: Normal Orientation: AAOx4 [place] Coma Scale Eye Opening: Spontaneous [place] Coma Scale Verbal: Oriented [place] Coma Scale Motor: Obeys Commands Maciel Coma Scale Total: 15 Speech: Normal Motor strength normal: LUE, RUE, LLE, RLE Sensory: Normal - Psychological Associated symptoms: Normal affect, Normal mood - Skin Skin Temperature: Warm Skin Moisture: Dry Skin Color: Normal Course - Re-evaluation Re-evalutation: 03/24/20 12:58 Shoulder was reduced on the first attempt with conscious sedation. Please see procedure note. - Vital Signs Vital signs: Temp Pulse Resp BP Pulse Ox 98.2 F 75 20 169/85 H 100 03/24/20 10:19 03/24/20 10:19 03/24/20 12:57 03/24/20 12:57 03/24/20 12:57 - Diagnostic Test Radiology reviewed: Image reviewed, Reports reviewed Procedures - Conscious Sedation Conscious sedation Time started: 12:40 Time completed: 13:00 Consent obtained: Yes Indication: shoulder reduction Prior complications: Procedural sedation Pt with a severe systemic disease.: P3. - ASA Classification. Airway Evaluation: Large tongue, Obese Mallampati Classification: Class 3 Used during procedure: Suction available, IV access obtained, Pulse ox on pt., threat monitoring analyst on pt. Medications administered: Etomidate - 10 Reversal agents: None I personally performed/intraservice time: Sedation, Procedure, 30 min or less - 20 min total procedure time Complications: No - Immobilization Right Shoulder Time completed: 12:55 Pre-Proc Neuro Vasc Exam: Normal Immobilizer type: Sling Performed by: Provider Post-Proc Neuro Vasc Exam: Normal Alignment checked and good: Yes - Joint Reduction/Fracture Care Right Shoulder Time completed: 12:56 Consent obtained: Yes Conscious sedation: Yes Pre-procedure NV exam: Yes Manipulation comment: traction/counter Post-procedure NV exam: Yes Post-reduction x-ray: Joint reduced Reduction attempts: 1 Complications: No Discharge - Discharge Clinical Impression: Recurrent dislocation, right shoulder Condition: Stable Disposition: HOME, SELF-CARE Instructions: Shoulder Dislocation ([facility]), Sling as Treatment ([facility]) Additional Instructions: Please follow-up with orthopedics as soon as possible Referrals: ALYSSA SUÁREZ MD [ACTIVE STAFF] - Follow up in 3-5 days
--- NOTE | 2020-03-24 13:24 | RADIOLOGY REPORT (SQ) ---
EXAM DESCRIPTION: SHOULDER RIGHT 1 VIEW IMAGES COMPLETED DATE/TIME: 03/24/2020 1:11 pm REASON FOR STUDY: post reduction COMPARISON: None. NUMBER OF VIEWS: One view. TECHNIQUE: AP image acquired of the right shoulder. LIMITATIONS: None. FINDINGS: Postreduction image of the right shoulder shows the dislocation to been reduced. No fract ure is seen. IMPRESSION: Successful reduction. TECHNICAL DOCUMENTATION: JOB ID: [id number] 2010 [employer] All Rights Reserved Reading location - IP/workstation name: [email or web address]
--- NOTE | 2020-03-24 14:33 | RADIOLOGY REPORT (SQ) ---
EXAM DESCRIPTION: SHOULDER RIGHT 1 VIEW IMAGES COMPLETED DATE/TIME: 03/24/2020 2:20 pm REASON FOR STUDY: pain COMPARISON: 03/24/2020 NUMBER OF VIEWS: Three views. TECHNIQUE: Internal rotation, external rotation, and Y view images acquired of the right shoulder. LIMITATIONS: None. FINDINGS: MINERALIZATION: Normal. BONES: No acute fracture. JOINTS: Recurrent anterior dislocation since the examination performed earlier on 03/24/2020. VISUALIZED LUNGS AND RIBS: No pneumothorax. No rib fracture. SOFT TISSUES: No radiopaque foreign body. OTHER: No other significant finding. IMPRESSION: 1. Recurrent anterior dislocation since the examination performed earlier on the same d ate, 03/24/2020. TECHNICAL DOCUMENTATION: JOB ID: [id number] 2010 [employer]- All Rights Reserved Reading location - IP/workstation name: [email or web address]
[2020-03-24 15:10] VITALS: BP 168/85
== END 2020-03-24 15:06 | disposition home or self-care (01) ==
LOC: ER 10:08
DX: M24.411 Recurrent dislocation, right shoulder (principal); F17.200 Nicotine dependence, unspecified, uncomplicated; I10 Essential (primary) hypertension; J44.9 Chronic obstructive pulmonary disease, unspecified; Z88.0 Allergy status to penicillin
CPT/HCPCS: 99285; 99152; 73020; 73030; 23650; J3490 ×2